=== PATIENT | female | born 1955 | race Caucasian/White ===

== ENCOUNTER 2021-05-13 14:05 | Emergency (ER) | payer MEDICARE, OTHER ==
[~2021-05-13] VITALS: Ht 162 cm; Wt 64.0 kg
--- NOTE | 2021-05-13 14:28 | ED General ---
General Chief Complaint: COVID19 Suspect/Confirmed Stated Complaint: COVID POSITIVE - WEAKNESS Source of Information: [facility], [facility] Exam Limitations: Physical Impairments History of Present Illness Date Seen by Provider: May 13, 2021 Time Seen by Provider: 14:10 Initial Comments Patient is a 65yo female brought from [facility] with a concern for new right sided weakness. She was recently admitted to the alf after a stroke from last month. She was "fine" at lunch reportedly and was found a short time later in her wheel chair slumped backward and poorly responsive. Unknown verbal status (she is not verbal now). She is known to be COVID POS since May 06 (unvaccinated). SHe is unable to participate in HPI, ROS or PMH, P SOC hx, etc due to recent (?) stroke. 1529 Called over and spoke with one of the nurses who takes care of her at [facility] - she is able to communicate "needs" to them, but is mostly non- verbal. "Quiet". She declined to eat lunch today but did give herself some fluids. When therapist went in to assess her after lunch they found her in the wheelchair, basically unresponsive, unable to support her head and neck, "staring straight up at the ceiling". BS 136. Nurse states re: her stroke she was brought to a hospital in [place] and then sent to . Will check records. Timing/Duration: 1-3 Hours Allergies and Home Medications Allergies Coded Allergies: Penicillins (Verified Allergy, Unknown, 05/13/21) codeine (Verified Allergy, Unknown, 05/13/21) erythromycin base (Verified Allergy, Unknown, 05/13/21) lidocaine (Verified Allergy, Unknown, 05/13/21) tetanus toxoid, adsorbed (Verified Allergy, Unknown, 05/13/21) Patient Home Medication List Home Medication List Reviewed: Yes Review of Systems Review of Systems Constitutional: see HPI Unable to obtain due to clinical condition Physical Exam Vital Signs Vital Signs - First Documented 05/13/21 05/13/21 14:05 17:07 Temp 36.2 Pulse 82 Resp 20 B/P (MAP) 135/95 (108) Pulse Ox 95 O2 Delivery Room Air Capillary Refill : Height, Weight, BMI Height: '" Weight: lbs. oz. kg; BMI Method: General Appearance: No Apparent Distress, WD/WN, Chronically ill Eyes: Bilateral Eye Normal Inspection HEENT: Other (Very dry oral mucosa; pupils equal and reactive (she will not follow commands, therefore unable to determine EOM)) Neck: Normal Inspection, Supple Respiratory: Lungs Clear, Normal Breath Sounds, No Accessory Muscle Use, No Respiratory Distress Cardiovascular: Regular Rate, Rhythm, Normal Peripheral Pulses, Other (brisk capillary refill) Gastrointestinal: Normal Bowel Sounds, Non Tender, Soft Extremity: Normal Capillary Refill, Normal Inspection; No Swelling (no swelling in lower legs bilaterally; ) Neurologic/Psychiatric: Alert (eyes open - no responses verbally; unable to assess orientation; she withdraws to stimulus both feet. Does not move LUE (flaccid); will weakly squeeze with the right hand - again scar not follow commands to move the right arm), Depressed Affect, Motor Weakness (LUE - flaccid; LLE will not raise off bed.) Skin: Normal Color, Warm/Dry, Other (dry scaly skin head and neck; old bruises to anterior abdominal wall (likely lovenox injection sites); stage 2/3 sacral decubitus ulcer without signs of infection - no erythema, no drainage.) Focused Exam Lactate Level 05/13/21 15:13: Lactic Acid Level 1.51 Lactic Acid Level Laboratory Tests Test 05/13/21 15:13 Lactic Acid Level 1.51 MMOL/L (0.50-2.00) Progress/Results/Core Measures Suspected Sepsis SIRS Temperature: Pulse: Respiratory Rate: Laboratory Tests 05/13/21 14:15: White Blood Count 11.8H Blood Pressure / Mean: 05/13/21 15:13: Lactic Acid Level 1.51 Laboratory Tests 05/13/21 14:15: Creatinine 0.63, INR Comment 1.1, Platelet Count 355, Total Bilirubin 0.5 Results/Orders Lab Results Laboratory Tests Test 05/13/21 14:15 05/13/21 14:50 05/13/21 15:13 Range/Units White Blood Count 11.8 H 4.3-11.0 10^3/uL Red Blood Count 4.34 3.80-5.11 10^6/uL Hemoglobin 12.9 11.5-16.0 g/dL Hematocrit 40 35-52 % Mean Corpuscular Volume 92 80-99 fL Mean Corpuscular Hemoglobin 30 25-34 pg Mean Corpuscular Hemoglobin Concent 32 32-36 g/dL Red Cell Distribution Width 13.7 10.0-14.5 % Platelet Count 355 130-400 10^3/uL Mean Platelet Volume 10.4 9.0-12.2 fL Immature Granulocyte % (Auto) 1 % Neutrophils (%) (Auto) 81 H 42-75 % Lymphocytes (%) (Auto) 11 L 12-44 % Monocytes (%) (Auto) 8 0-12 % Eosinophils (%) (Auto) 0 0-10 % Basophils (%) (Auto) 0 0-10 % Neutrophils # (Auto) 9.5 H 1.8-7.8 10^3/uL Lymphocytes # (Auto) 1.3 1.0-4.0 10^3/uL Monocytes # (Auto) 0.9 0.0-1.0 10^3/uL Eosinophils # (Auto) 0.0 0.0-0.3 10^3/uL Basophils # (Auto) 0.0 0.0-0.1 10^3/uL Immature Granulocyte # (Auto) 0.1 0.0-0.1 10^3/uL Prothrombin Time 15.0 H 12.2-14.7 SEC INR Comment 1.1 0.8-1.4 Activated Partial Thromboplast Time 33 24-35 SEC Sodium Level 143 135-145 MMOL/L Potassium Level 3.3 L 3.6-5.0 MMOL/L Chloride Level 106 98-107 MMOL/L Carbon Dioxide Level 26 21-32 MMOL/L Anion Gap 11 5-14 MMOL/L Blood Urea Nitrogen 25 H 7-18 MG/DL Creatinine 0.63 0.60-1.30 MG/DL Estimat Glomerular Filtration Rate 98 BUN/Creatinine Ratio 40 Glucose Level 114 H 70-105 MG/DL Calcium Level 9.2 8.5-10.1 MG/DL Corrected Calcium 9.6 8.5-10.1 MG/DL Total Bilirubin 0.5 0.1-1.0 MG/DL Aspartate Amino Transf (AST/SGOT) 29 5-34 U/L Alanine Aminotransferase (ALT/SGPT) 32 0-55 U/L Alkaline Phosphatase 153 H 40-136 U/L C-Reactive Protein High Sensitivity 17.49 H 0.00-0.50 MG/DL Total Protein 7.3 6.4-8.2 GM/DL Albumin 3.5 3.2-4.5 GM/DL Procalcitonin 0.09 <0.10 NG/ML Urine Color YELLOW Urine Clarity SL CLOUDY Urine pH 6.0 5-9 Urine Specific [place] 1.020 1.016-1.022 Urine Protein TRACE H NEGATIVE Urine Glucose (UA) 3+ H NEGATIVE Urine Ketones NEGATIVE NEGATIVE Urine Nitrite NEGATIVE NEGATIVE Urine Bilirubin NEGATIVE NEGATIVE Urine Urobilinogen 0.2 < = 1.0 MG/DL Urine Leukocyte Esterase NEGATIVE NEGATIVE Urine RBC (Auto) NEGATIVE NEGATIVE Urine RBC NONE /HPF Urine WBC NONE /HPF Urine Squamous Epithelial Cells NONE /HPF Urine Crystals NONE /LPF Urine Bacteria NEGATIVE /HPF Urine Casts NONE /LPF Urine Mucus NEGATIVE /LPF Urine Culture Indicated NO Lactic Acid Level 1.51 0.50-2.00 MMOL/L My Orders Orders - OUMOU BOBO MD Cbc With Automated Diff (05/13/21 14:20) Comprehensive Metabolic Panel (05/13/21 14:20) Blood Culture (05/13/21 14:20) Sputum Culture (05/13/21 14:20) Urinalysis (05/13/21 14:20) Urine Culture (05/13/21 14:20) Protime With Inr (05/13/21 14:20) Partial Thromboplastin Time (05/13/21 14:20) Chest 1 View, Ap/Pa Only (05/13/21 14:20) Ed Iv/Invasive Line Start (05/13/21 14:20) Ed Iv/Invasive Line Start (05/13/21 14:20) Vital Signs Adult Sepsis Patie Q15M (05/13/21 14:20) O2 (05/13/21 14:20) Remove Rings In Anticipation O (05/13/21 14:20) Lactic Acid Analyzer (05/13/21 14:20) Hs C Reactive Protein (05/13/21 14:20) Procalcitonin (Pct) (05/13/21 14:20) Ct Head Wo (05/13/21 14:21) Vital Signs/I&O 05/13/21 05/13/21 14:05 17:07 Temp 36.2 Pulse 82 82 Resp 20 18 B/P (MAP) 135/95 (108) 132/70 Pulse Ox 95 97 O2 Delivery Room Air Capillary Refill : Progress Note #1: Time: 16:17 Progress Note reassessed after fluids - she is nodding "yes" and "no" appropriately. Denies pain. [place] Would like to try something to drink - will get some thickener. VSS. her oxygen is 97%. no increased work of breathing (CXR does show some patchy bibasilar interstitial infiltrate consistent with Covid 19 pneumonia). She will squeeze a little with right hand. Just appears very tired and slow. I was able to look at her records from . 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 She is on plavix and aspirin and high dose statin. Labs look good. Nothing to suggest sepsis. Lactic <2. CRP elevated consistent with Covid. No UTI. No concerning findings on CT head. BP's have been in [facility] target range (<160 systolic). I think that she is safe to go back to the [facility]. Progress Note #2: Time: 16:48 Progress Note advised by patient's nurse SUZE Escoto that Eddie drank about 3/4 cup of thickened water. Tolerated well. Diagnostic Imaging Diagonstic Imaging: Xray Plain Films/CT/US/NM/MRI: chest Comments [facility] [place] NAME: EDDIE GRANT [facility] REC#: [id number] PT STATUS: REG ER : 1955 PHYSICIAN: OUMOU BOBO MD ADMIT DATE: 05/13/21/ER Draft Date of Exam:05/13/21 CHEST 1 VIEW, AP/PA ONLY EXAMINATION: Chest 1 view. HISTORY: Generalized weakness COVID Pos. COMPARISON: None available. FINDINGS: Heart size and pulmonary vasculature are normal. Patchy interstitial opacities within the lower lungs. No pleural effusion or pneumothorax. The osseous structures are intact. IMPRESSION: Patchy interstitial opacities in the lower lungs compatible with history of Covid 19 and pneumonia. Dictated on workstation # [id number] Dict: 05/13/21 1458 Trans: 05/13/21 1503 [facility] [id number] Interpreted by: SHARON HERNANDES DO Electronically signed by: Diagonstic Imaging: CT Comments [facility] [place] [place] NAME: EDDIE GRANT [facility] REC#: [id number] PT STATUS: REG ER : 1955 PHYSICIAN: OUMOU BOBO MD ADMIT DATE: 05/13/21/ER Draft Date of Exam:05/13/21 CT HEAD WO INDICATION: Recent stroke; new right side weakness. TECHNIQUE: Routine non contrast-enhanced axial images were obtained from the skull base to the vertex. Auto Exposure Controls were utilized during the CT exam to meet ALARA standards for radiation dose reduction COMPARISON: None. FINDINGS: The ventricles and cortical sulci are diffusely prominent, compatible with age-related volume loss. Old small lacunar infarcts in the right basal ganglia are noted. There are confluent areas of abnormal, low attenuation in the periventricular white matter. This is consistent with small vessel ischemic changes; age-indeterminate. There is no prior study available for comparison. There is no midline shift or mass-effect. No acute intra-axial hemorrhage is seen. There are no abnormal areas of increased or decreased density to suggest acute hemorrhage or edema. No extra-axial masses or collections are present. The bony calvarium is intact. The visualized paranasal sinuses are unremarkable. The mastoid air cells are clear. IMPRESSION: 1. No acute intracranial abnormality. No CT evidence of mass, acute infarct or intracranial hemorrhage. 2. Small vessel ischemic changes in the periventricular and subcortical white matter; likely chronic. 3. Old small lacunar infarcts in the right basal ganglia. 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 Decision time for Depature: 16:22 Referrals: LUZMA HKAN MD Patient Instructions: COVID-19 ED Add. Discharge Instructions: Encourage fluids so that she stays well-hydrated. Monitor oxygen saturations due to Covid Pneumonia, if they are less than 90% or any other emergent, concerning findings, please return to the ER for re- evaluation. Continue home medications. OUMOU BOBO MD May 13, 2021 14:28
[2021-05-13 14:33] LABS: BASOPHILS % (AUTO) 0 % (0-10); EOSINOPHILS % (AUTO) 0 % (0-10); HEMATOCRIT 40 % (35-52); HEMOGLOBIN 12.9 g/dL (11.5-16.0); LYMPHOCYTES # (AUTO) 1.3 10^3/uL (1.0-4.0); LYMPHOCYTES % (AUTO) 11 % (12-44); MEAN CORPUSCULAR HEMOGLOBIN 30 pg (25-34); MEAN CORPUSCULAR HGB CONC 32 g/dL (32-36); MEAN CORPUSCULAR VOLUME 92 fL (80-99); MEAN PLATELET VOLUME 10.4 fL (9.0-12.2); MONOCYTES # (AUTO) 0.9 10^3/uL (0.0-1.0); MONOCYTES % (AUTO) 8 % (0-12); NEUTROPHILS # (AUTO) 9.5 10^3/uL (1.8-7.8); NEUTROPHILS % (AUTO) 81 % (42-75); PLATELET COUNT 355 10^3/uL (130-400); WHITE BLOOD COUNT 11.8 10^3/uL (4.3-11.0)
[2021-05-13 14:41] LABS: ALBUMIN 3.5 GM/DL (3.2-4.5)
[2021-05-13 14:42] LABS: POTASSIUM 3.3 MMOL/L (3.6-5.0)
[2021-05-13 14:43] LABS: CALCIUM 9.2 MG/DL (8.5-10.1)
[2021-05-13 14:44] LABS: TOTAL PROTEIN 7.3 GM/DL (6.4-8.2)
[2021-05-13 14:46] LABS: BILIRUBIN,TOTAL 0.5 MG/DL (0.1-1.0)
[2021-05-13 14:47] LABS: INR 1.1 (0.8-1.4)
[2021-05-13 14:48] LABS: CREATININE SERUM 0.63 MG/DL (0.60-1.30)
[2021-05-13 15:01] LABS: BILIRUBIN,URINE NEGATIVE (NEGATIVE); CLARITY,URINE SL CLOUDY; COLOR,URINE YELLOW; GLUCOSE, URINE (UA) 3+ (NEGATIVE); KETONES,URINE NEGATIVE (NEGATIVE); LEUKOCYTE ESTERASE ,URINE NEGATIVE (NEGATIVE); NITRITE,URINE NEGATIVE (NEGATIVE); PROTEIN,URINE TRACE (NEGATIVE)
--- NOTE | 2021-05-13 15:03 | Diagnostic Imaging Report ---
EXAMINATION: Chest 1 view. HISTORY: Generalized weakness COVID Pos. COMPARISON: None available. FINDINGS: Heart size and pulmonary vasculature are normal. Patchy interstitial opacities within the lower lungs. No pleural effusion or pneumothorax. The osseous structures are intact. IMPRESSION: Patchy interstitial opacities in the lower lungs compatible with history of Covid 19 and pneumonia. Dictated by: Dictated on workstation # [id number]
[2021-05-13 15:09] LABS: BACTERIA,URINE NEGATIVE /HPF
--- NOTE | 2021-05-13 15:12 | Diagnostic Imaging Report ---
INDICATION: Recent stroke; new right side weakness. TECHNIQUE: Routine non contrast-enhanced axial images were obtained from the skull base to the vertex. Auto Exposure Controls were utilized during the CT exam to meet ALARA standards for radiation dose reduction COMPARISON: None. FINDINGS: The ventricles and cortical sulci are diffusely prominent, compatible with age-related volume loss. Old small lacunar infarcts in the right basal ganglia are noted. There are confluent areas of abnormal, low attenuation in the periventricular white matter. This is consistent with small vessel ischemic changes; age-indeterminate. There is no prior study available for comparison. There is no midline shift or mass-effect. No acute intra-axial hemorrhage is seen. There are no abnormal areas of increased or decreased density to suggest acute hemorrhage or edema. No extra-axial masses or collections are present. The bony calvarium is intact. The visualized paranasal sinuses are unremarkable. The mastoid air cells are clear. IMPRESSION: 1. No acute intracranial abnormality. No CT evidence of mass, acute infarct or intracranial hemorrhage. 2. Small vessel ischemic changes in the periventricular and subcortical white matter; likely chronic. 3. Old small lacunar infarcts in the right basal ganglia. Dictated by: Dictated on workstation # [id number]
[2021-05-13 17:07] VITALS: BP 132/70
== END 2021-05-13 17:36 | disposition home or self-care (01) ==
LOC: ER 14:14
DX: U07.1 COVID-19 (principal); J12.82 Pneumonia due to coronavirus disease 2019; R40.4 Transient alteration of awareness; Z86.73 Personal history of transient ischemic attack (TIA), and cerebral infarction without residual deficits
CPT/HCPCS: 36415; 51702; 70450; 71045; 80053; 81000; 83605; 84145; 85025; 85610; 85730; 86141; 87040; 87088

== ENCOUNTER 2021-05-18 17:44 | Inpatient (IN) | payer MEDICARE ==
[~2021-05-18] VITALS: Ht 165 cm; Wt 78.4 kg
--- NOTE | 2021-05-18 17:59 | ED GI ---
General Chief Complaint: Abdominal/GI Problems Stated Complaint: GI BLEED Source of Information: [facility] Records Exam Limitations: Physical Impairments History of Present Illness Date Seen by Provider: May 18, 2021 Time Seen by Provider: 18:06 Initial Comments 65-year-old female patient presents to ER from [facility] with reports that tonight the staff was changing her briefs and noticed her stool to be a maroon color with small clots in it. Due to concern for gastrointestinal bleeding they sent her to the emergency room. She is on aspirin and Plavix for recent CVA. 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 She was Covid positive on 05/07/2021. She sustained these strokes on 04/06/2021 and was transferred to the [facility] from somewhere else. Timing/Duration: 1-3 Hours Severity/Quality: Moderate Radiation: No Radiation Activities at Onset: None Associated Symptoms: Denies Symptoms Allergies and Home Medications Allergies Coded Allergies: Penicillins (Verified Allergy, Unknown, 05/13/21) codeine (Verified Allergy, Unknown, 05/13/21) erythromycin base (Verified Allergy, Unknown, 05/13/21) lidocaine (Verified Allergy, Unknown, 05/13/21) tetanus toxoid, adsorbed (Verified Allergy, Unknown, 05/13/21) Patient Home Medication List Home Medication List Reviewed: Yes Review of Systems Review of Systems Constitutional: see HPI EENTM: No Symptoms Reported Respiratory: No Symptoms Reported Cardiovascular: No Symptoms Reported Gastrointestinal: See HPI, Rectal Bleeding Genitourinary: No Symptoms Reported Musculoskeletal: no symptoms reported Skin: no symptoms reported Psychiatric/Neurological: No Symptoms Reported Endocrine: No Symptoms Reported Hematologic/Lymphatic: No Symptoms Reported Past Funvqmu-Libxph-Vumqex Hx Past Medical History Surgery/Hospitalization HX: RECENT STROKE L SIDE FLACCID Physical Exam Vital Signs Vital Signs - First Documented 05/18/21 17:44 Temp 36.4 Pulse 83 Resp 18 B/P (MAP) 160/92 (114) Capillary Refill : Height/Weight/BMI Height: '" Weight: lbs. oz. kg; 24.00 BMI Method: General Appearance: WD/WN, no apparent distress, other (Nonverbal but makes eye contact during conversation and is able to answer yes or no type questions by shaking her head yes or no.) HEENT: PERRL/EOMI, normal ENT inspection Neck: non-tender, full range of motion Respiratory: no respiratory distress, no accessory muscle use Cardiovascular: regular rate, rhythm, no murmur Gastrointestinal: normal bowel sounds, non tender, soft; No tenderness (When I press on her abdomen and ask if it hurts she shakes her head no. Bowel sounds are present.); other (The stool within her brief is maroon in color mostly liquid with some small grape jelly consistency clot which is not surprisingly positive will order the bedside occult blood test.) Rectal: No hemorrhoids; other (Upon digital rectal exam with Mirtha PCT at the bedside at finger length there is an unusual crepitus-like sensation to the patient's left side of the rectum which is exquisitely tender and bloody. There is definitely proctitis on CT and I would question the integrity of the rectal wall.) Extremities: other (She has left-sided hemiparesis of left arm and left leg) Back: other (Logrolled with Bailee ARCINIEGA to clean up her bowel movement. She is noted to have 2 separate pressure ulcers over the sacrum. The smaller 1 is about a stage III and the larger one is about a stage II. ) Neurologic/Psychiatric: alert, other (As mentioned she shakes her head yes or no to answer questions but does not give any verbal response.) Skin: normal color, warm/dry Progress/Results/Core Measures Results/Orders Lab Results Laboratory Tests Test 05/18/21 17:49 05/18/21 19:50 Range/Units White Blood Count 8.9 4.3-11.0 10^3/uL Red Blood Count 4.12 3.80-5.11 10^6/uL Hemoglobin 12.1 11.5-16.0 g/dL Hematocrit 38 35-52 % Mean Corpuscular Volume 91 80-99 fL Mean Corpuscular Hemoglobin 29 25-34 pg Mean Corpuscular Hemoglobin Concent 32 32-36 g/dL Red Cell Distribution Width 13.8 10.0-14.5 % Platelet Count 457 H 130-400 10^3/uL Mean Platelet Volume 10.0 9.0-12.2 fL Immature Granulocyte % (Auto) 1 % Neutrophils (%) (Auto) 73 42-75 % Lymphocytes (%) (Auto) 17 12-44 % Monocytes (%) (Auto) 9 0-12 % Eosinophils (%) (Auto) 1 0-10 % Basophils (%) (Auto) 0 0-10 % Neutrophils # (Auto) 6.4 1.8-7.8 10^3/uL Lymphocytes # (Auto) 1.5 1.0-4.0 10^3/uL Monocytes # (Auto) 0.8 0.0-1.0 10^3/uL Eosinophils # (Auto) 0.1 0.0-0.3 10^3/uL Basophils # (Auto) 0.0 0.0-0.1 10^3/uL Immature Granulocyte # (Auto) 0.1 0.0-0.1 10^3/uL Prothrombin Time 15.1 H 12.2-14.7 SEC INR Comment 1.2 0.8-1.4 Activated Partial Thromboplast Time 30 24-35 SEC Sodium Level 146 H 135-145 MMOL/L Potassium Level 3.2 L 3.6-5.0 MMOL/L Chloride Level 112 H 98-107 MMOL/L Carbon Dioxide Level 24 21-32 MMOL/L Anion Gap 10 5-14 MMOL/L Blood Urea Nitrogen 24 H 7-18 MG/DL Creatinine 0.61 0.60-1.30 MG/DL Estimat Glomerular Filtration Rate 99 BUN/Creatinine Ratio 39 Glucose Level 112 H 70-105 MG/DL Calcium Level 8.9 8.5-10.1 MG/DL Corrected Calcium 9.5 8.5-10.1 MG/DL Total Bilirubin 0.5 0.1-1.0 MG/DL Aspartate Amino Transf (AST/SGOT) 23 5-34 U/L Alanine Aminotransferase (ALT/SGPT) 26 0-55 U/L Alkaline Phosphatase 153 H 40-136 U/L Total Protein 6.9 6.4-8.2 GM/DL Albumin 3.2 3.2-4.5 GM/DL Urine Color YELLOW Urine Clarity CLOUDY Urine pH 5.5 5-9 Urine Specific [place] >=1.030 1.016-1.022 Urine Protein 2+ H NEGATIVE Urine Glucose (UA) 3+ H NEGATIVE Urine Ketones NEGATIVE NEGATIVE Urine Nitrite NEGATIVE NEGATIVE Urine Bilirubin NEGATIVE NEGATIVE Urine Urobilinogen 0.2 < = 1.0 MG/DL Urine Leukocyte Esterase 1+ H NEGATIVE Urine RBC (Auto) 3+ H NEGATIVE Urine RBC >100 H /HPF Urine WBC 50-100 H /HPF Urine Crystals PRESENT H /LPF Urine Amorphous Sediment FEW MARISA URATES H /LPF Urine Bacteria MODERATE H /HPF Urine Casts NONE /LPF Urine Mucus NEGATIVE /LPF Urine Culture Indicated YES My Orders Orders - ASHUTOSH GAUTAM [employer]MENT [employer]PLICATION SPECIALIST Cbc With Automated Diff (05/18/21 17:58) Comprehensive Metabolic Panel (05/18/21 17:58) Protime With Inr (05/18/21 17:58) Partial Thromboplastin Time (05/18/21 17:58) Ed Iv/Invasive Line Start (05/18/21 17:58) Type And Screen (05/18/21 17:58) Lactated Ringers (Lr 1000 Ml Iv Solution (05/18/21 18:45) Ct Abdomen/Pelvis W (05/18/21 18:42) Iohexol Injection (Omnipaque 350 Mg/Ml 1 (05/18/21 19:00) Received Contrast (Hold Metformin- Contr (05/18/21 19:00) Ns (Ivpb) (Sodium Chloride 0.9% Ivpb Bag (05/18/21 19:00) Na Phos/Na Biphos Enema (Fleet Enema Robert (05/18/21 19:45) Ua Culture If Indicated (05/18/21 19:41) Straight Cath (Urinary) (05/18/21 19:41) Clear Liquid (05/18/21 Dinner) Bisacodyl Tablet (Dulcolax Tablet) (05/19/21 12:00) Bisacodyl Tablet (Dulcolax Tablet) (05/19/21 15:00) Polyethylene Glycol Powder Btl (Miralax (05/19/21 18:00) Red Cells Leukocytes Reduced (05/18/21 20:10) Urine Culture (05/18/21 19:50) Ed Admission (Communication) (05/18/21 20:34) Medications Given in ED Current Medications Medications Dose Ordered Sig/[place]ano Route Start Time Stop Time Status Last Admin Dose Admin Iohexol 100 ml ONCE ONCE IV 05/18/21 19:00 05/18/21 19:01 DC 05/18/21 19:26 80 ML Sodium Chloride 100 ml ONCE ONCE IV 05/18/21 19:00 05/18/21 19:01 DC 05/18/21 19:26 80 ML Vital Signs/I&O 05/18/21 17:44 Temp 36.4 Pulse 83 Resp 18 B/P (MAP) 160/92 (114) Departure Communication (Admissions) Spoken to Dr. Patel and will admit the patient. I spoke with Dr. Chambers who evaluated the patient here in the emergency room. We will start a bowel prep for colonoscopy, Cipro Flagyl for empiric UTI coverage and in case there is a perforation of the rectal wall. NAME: [facility] REC#: [id number] PT STATUS: REG ER : 1955 PHYSICIAN: ASHUTOSH GAUTAM APRN ADMIT DATE: 05/18/21/ER Draft Date of Exam:05/18/21 CT ABDOMEN/PELVIS W PROCEDURE: CT abdomen and pelvis with contrast. TECHNIQUE: Multiple contiguous axial images were obtained through the abdomen and pelvis after administration of intravenous contrast. Auto Exposure Controls were utilized during the CT exam to meet ALARA standards for radiation dose reduction. All CT scans use one or more of the following dose optimizing techniques: automated exposure control, MA and/or KvP adjustment based on patient size and exam type or iterative reconstruction. INDICATION: History of gastrointestinal bleed, melena. Previous stroke. Nonverbal. Partially paralyzed. EXAMINATION: CT abdomen and pelvis with contrast 05/18/2021. FINDINGS: There is atelectasis in the visualized lung bases. Within the abdomen, the gallbladder is markedly distended. There are dependent hyperdensities, likely stones. The liver and spleen unremarkable. There is wall thickening of the distal esophagus perhaps due to esophagitis versus a small hiatal hernia. The pancreas is unremarkable. The adrenal glands normal. Kidneys unremarkable. There is atherosclerotic disease. Motion artifact is noted along the images through the right lower quadrant making evaluation of the appendix nondiagnostic. No obvious inflammatory change in the right lower quadrant is appreciated. Within the pelvis there is marked wall thickening of the urinary bladder with adjacent fat stranding suggesting cystitis. Air in the urinary bladder could be iatrogenic versus cystitis. There is presacral fat stranding and fluid. The distal colon is distended with a hyperdensity in the colon perhaps due to a rectal tube. Correlate clinically. Some of the hyperdensity may be residual contrast from a recent contrast evaluation. Correlate with recent history. Hemorrhagic component is also in the differential, given history of GI bleed. There is no evidence for free air. There is no obstructive process. There is a small umbilical hernia which contains fat. There is no acute osseous abnormality. IMPRESSION: 1. Marked wall thickening about the urinary bladder with adjacent fat stranding and air in the urinary bladder. Findings are suggestive of cystitis. Correlate clinically. 2. Fat stranding about the rectosigmoid with free fluid and presacral fat stranding also seen in the posterior pelvis. These findings could be due to a focal colitis. Hyperdensities within the rectosigmoid are noted, see above discussion. 3. Other incidental findings, as discussed above. This includes a distended gallbladder which appears to contain stones. If there is right upper quadrant pain, sonography could better characterize, as clinically warranted. Dictated on workstation # [id number] Dict: 05/18/211929 Trans: 05/18/211942 [facility] [id number] Interpreted by: BILLY SEGUNDO MD Electronically signed by: Impression Primary Impression: GI bleeding Additional Impression: Urinary tract infection Disposition: ADMITTED INPATIENT Condition: Stable Admissions Decision to Admit Reason: Admit from ER (General) Decision to Admit/Date: May 18, 2021 Time/Decision to Admit Time: 18:14 Departure-Patient Inst. Referrals: LUZMA KHAN MD (PCP/Family) Primary Care Physician ASHUTOSH GAUTAM APRN May 18, 2021 17:59
[2021-05-18 18:07] LABS: BASOPHILS % (AUTO) 0 % (0-10); EOSINOPHILS # (AUTO) 0.1 10^3/uL (0.0-0.3); EOSINOPHILS % (AUTO) 1 % (0-10); HEMATOCRIT 38 % (35-52); HEMOGLOBIN 12.1 g/dL (11.5-16.0); LYMPHOCYTES # (AUTO) 1.5 10^3/uL (1.0-4.0); LYMPHOCYTES % (AUTO) 17 % (12-44); MEAN CORPUSCULAR HEMOGLOBIN 29 pg (25-34); MEAN CORPUSCULAR HGB CONC 32 g/dL (32-36); MEAN CORPUSCULAR VOLUME 91 fL (80-99); MONOCYTES # (AUTO) 0.8 10^3/uL (0.0-1.0); MONOCYTES % (AUTO) 9 % (0-12); NEUTROPHILS # (AUTO) 6.4 10^3/uL (1.8-7.8); NEUTROPHILS % (AUTO) 73 % (42-75); PLATELET COUNT 457 10^3/uL (130-400); WHITE BLOOD COUNT 8.9 10^3/uL (4.3-11.0)
[2021-05-18 18:19] LABS: ALBUMIN 3.2 GM/DL (3.2-4.5); POTASSIUM 3.2 MMOL/L (3.6-5.0)
[2021-05-18 18:20] LABS: CALCIUM 8.9 MG/DL (8.5-10.1)
[2021-05-18 18:21] LABS: TOTAL PROTEIN 6.9 GM/DL (6.4-8.2)
[2021-05-18 18:22] LABS: INR 1.2 (0.8-1.4); PROTHROMBIN TIME PATIENT 15.1 SEC (12.2-14.7)
[2021-05-18 18:23] LABS: BILIRUBIN,TOTAL 0.5 MG/DL (0.1-1.0)
[2021-05-18 18:25] LABS: CREATININE SERUM 0.61 MG/DL (0.60-1.30)
[2021-05-18] MEDS ORDERED: LACTATED RINGERS 1,000 ML IV SCH (18:45)
[2021-05-18] MEDS ORDERED: HOLD METFORMIN - RECEIVED CONTRAST 20 ML VIAL IV SCH (19:00)
[2021-05-18] MEDS ORDERED: IOHEXOL 350 MG/ML 100 ML (OMNIPAQUE 350) VIAL IV ONE (19:00)
[2021-05-18] MEDS ORDERED: NS 100 ML (IVPB) BAG IV ONE (19:00)
--- NOTE | 2021-05-18 19:42 | Consultation - Surgery ---
History of Present Illness History of Present Illness Patient Consulted On(francisco/time) 05/18/21 19:37 Time Seen by Provider: 19:21 History of Present Illness Surgery asked to consult regarding GI bleed. HPI per ED: 65-year-old female patient presents to ER from [facility] with reports that tonight the staff was changing her briefs and noticed her stool to be a maroon color with small clots in it. Due to concern for gastrointestinal bleeding they sent her to the emergency room. She is on aspirin and Plavix for recent CVA. Past medical history includes IDDM, HTN, HLD, atherosclerosis, carotid stenosis, right pontine CVA resulting in left- sided hemiparesis and expressive aphasia. She was Covid positive on 05/07/2021. She sustained these strokes on 04/06/2021 and [facility]. Timing/Duration: 1-3 Hours Severity/Quality: Moderate Radiation: No Radiation Activities at Onset: None Associated Symptoms: Denies Symptoms Pt appears comfortable and can nod for yes and no questions, appears to be appropriately answering. Denied pain, nodded yes to colonoscopy and f/u question more than 5 yrs ago. ER saw maroon stool as well. Allergies and Home Medications Allergies Coded Allergies: Penicillins (Verified Allergy, Unknown, 05/13/21) codeine (Verified Allergy, Unknown, 05/13/21) erythromycin base (Verified Allergy, Unknown, 05/13/21) lidocaine (Verified Allergy, Unknown, 05/13/21) tetanus toxoid, adsorbed (Verified Allergy, Unknown, 05/13/21) Patient Home Medication List Home Medication List Reviewed: No (don't have a home list) Past Iznheng-Vkozjx-Gpiuug Hx Patient Social History Alcohol Use?: No Have you traveled recently?: No Family Medical History Significant Family History: No Pertinent Family Hx Other Unable to determine, pt barely nods her head as answers. Unsure if these are truthful. Review of Systems-General ROS-Unable to Obtain: pt can only answer yes or no questions Physical Exam-General Problems Physical Exam Vital Signs Vital Signs - First Documented 05/18/21 17:44 Temp 36.4 Pulse 83 Resp 18 B/P (MAP) 160/92 (114) Capillary Refill : Less Than 3 Seconds General Appearance: WD/WN, no apparent distress Eyes: Bilateral Eye PERRL, Bilateral Eye EOMI HEENT: pharynx normal; No scleral icterus (R), No scleral icterus (L) Respiratory: lungs clear, normal breath sounds, no respiratory distress, no accessory muscle use Cardiovascular: regular rate, rhythm, no murmur Gastrointestinal: non tender, soft, no organomegaly, hernia (small umbilical) Extremities: no pedal edema, no calf tenderness Neurologic/Psychiatric: alert, motor weakness Skin: normal color, warm/dry Lymphatic: no adenopathy (neck, axilla or groin) Data Review Labs Laboratory Tests 05/18/21 17:49: White Blood Count 8.9, Red Blood Count 4.12, Hemoglobin 12.1, Hematocrit 38, Mean Corpuscular Volume 91, Mean Corpuscular Hemoglobin 29, Mean Corpuscular Hemoglobin Concent 32, Red Cell Distribution Width 13.8, Platelet Count 457H, Mean Platelet Volume 10.0, Immature Granulocyte % (Auto) 1, Neutrophils (%) (Auto) 73, Lymphocytes (%) (Auto) 17, Monocytes (%) (Auto) 9, Eosinophils (%) (Auto) 1, Basophils (%) (Auto) 0, Neutrophils # (Auto) 6.4, Lymphocytes # (Auto) 1.5, Monocytes # (Auto) 0.8, Eosinophils # (Auto) 0.1, Basophils # (Auto) 0.0, Immature Granulocyte # (Auto) 0.1, Prothrombin Time 15.1H, INR Comment 1.2, Activated Partial Thromboplast Time 30, Sodium Level 146H, Potassium Level 3.2L, Chloride Level 112H, Carbon Dioxide Level 24, Anion Gap 10, Blood Urea Nitrogen 24H, Creatinine 0.61, Estimat Glomerular Filtration Rate 99, BUN/Creatinine Ratio 39, Glucose Level 112H, Calcium Level 8.9, Corrected Calcium 9.5, Total Bilirubin 0.5, Aspartate Amino Transf (AST/SGOT) 23, Alanine Aminotransferase (ALT/SGPT) 26, Alkaline Phosphatase 153H, Total Protein 6.9, Albumin 3.2 Assessment/Plan Assessment/Plan Assessment/Plan Rectal Bleed Biliary Dyskinesia I was asked by Pedro Luis Molina to see this pt and we discussed her care; she had rectal bleed but Hemoglobin is 12. I looked at the CT myself, did not see anything obvious in the colon; it is very redundant and full of fecal material. As well the gallbladder is very distended, but this probably does not have any significance. Also her Terminal Ileum appears to be retro-cecal. I don't think she needs to be admitted, does not seem to be having pain and nothing seen on CT. I would recommend going back to skilled nursing, stopping anti-coagulation, starting Miralax colon prep on Tuesday and plan for Colonoscopy on Tuesday afternoon. Will have my office try to coordinate and find out about consent. CARLOS LEMUS DO May 18, 2021 19:42
[2021-05-18] MEDS ORDERED: FLEET ENEMA ADULT 1 EA BTL PR ONE (19:45)
--- NOTE | 2021-05-18 19:45 | Diagnostic Imaging Report ---
PROCEDURE: CT abdomen and pelvis with contrast. TECHNIQUE: Multiple contiguous axial images were obtained through the abdomen and pelvis after administration of intravenous contrast. Auto Exposure Controls were utilized during the CT exam to meet ALARA standards for radiation dose reduction. All CT scans use one or more of the following dose optimizing techniques: automated exposure control, MA and/or KvP adjustment based on patient size and exam type or iterative reconstruction. INDICATION: History of gastrointestinal bleed, melena. Previous stroke. Nonverbal. Partially paralyzed. EXAMINATION: CT abdomen and pelvis with contrast 05/18/2021. FINDINGS: There is atelectasis in the visualized lung bases. Within the abdomen, the gallbladder is markedly distended. There are dependent hyperdensities, likely stones. The liver and spleen unremarkable. There is wall thickening of the distal esophagus perhaps due to esophagitis versus a small hiatal hernia. The pancreas is unremarkable. The adrenal glands normal. Kidneys unremarkable. There is atherosclerotic disease. Motion artifact is noted along the images through the right lower quadrant making evaluation of the appendix nondiagnostic. No obvious inflammatory change in the right lower quadrant is appreciated. Within the pelvis there is marked wall thickening of the urinary bladder with adjacent fat stranding suggesting cystitis. Air in the urinary bladder could be iatrogenic versus cystitis. There is presacral fat stranding and fluid. The distal colon is distended with a hyperdensity in the colon perhaps due to a rectal tube. Correlate clinically. Some of the hyperdensity may be residual contrast from a recent contrast evaluation. Correlate with recent history. Hemorrhagic component is also in the differential, given history of GI bleed. There is no evidence for free air. There is no obstructive process. There is a small umbilical hernia which contains fat. There is no acute osseous abnormality. IMPRESSION: 1. Marked wall thickening about the urinary bladder with adjacent fat stranding and air in the urinary bladder. Findings are suggestive of cystitis. Correlate clinically. 2. Fat stranding about the rectosigmoid with free fluid and presacral fat stranding also seen in the posterior pelvis. These findings could be due to a focal colitis. Hyperdensities within the rectosigmoid are noted, see above discussion. 3. Other incidental findings, as discussed above. This includes a distended gallbladder which appears to contain stones. If there is right upper quadrant pain, sonography could better characterize, as clinically warranted. Dictated by: Dictated on workstation # [id number]
[2021-05-18 19:57] LABS: BILIRUBIN,URINE NEGATIVE (NEGATIVE); CLARITY,URINE CLOUDY; COLOR,URINE YELLOW; GLUCOSE, URINE (UA) 3+ (NEGATIVE); KETONES,URINE NEGATIVE (NEGATIVE); LEUKOCYTE ESTERASE ,URINE 1+ (NEGATIVE); NITRITE,URINE NEGATIVE (NEGATIVE); PH,URINE 5.5 (5-9); PROTEIN,URINE 2+ (NEGATIVE)
[2021-05-18 20:14] LABS: AMORPHOUS SEDIMENT,UR FEW AMOR URATES /LPF; BACTERIA,URINE MODERATE /HPF; RBC,URINE >100 /HPF; WBC,URINE 50-100 /HPF
[2021-05-18] MEDS ORDERED: diphenhydrAMINE 25 MG TAB (BENADRYL) PO PRN (21:00)
[2021-05-18] MEDS ORDERED: CALCIUM CARBONATE 500 MG (TUMS) TAB.CHEW PO PRN (21:00)
[2021-05-18] MEDS ORDERED: LACTULOSE SYRUP 10GM/15ML (ENULOSE) 30ML UDC PO PRN (21:00)
[2021-05-18] MEDS ORDERED: ACETAMINOPHEN 325 MG TABLET PO PRN (21:00)
[2021-05-18] MEDS ORDERED: ANTACID SUSP 30 ML UDC (MYLANTA) PO PRN (21:00)
[2021-05-18] MEDS ORDERED: MILK OF MAGNESIA 400 MG/5 ML 30 ML UDC PO PRN (21:00)
[2021-05-18] MEDS ORDERED: diphenhydrAMINE 50 MG/ML INJ (BENADRYL) IVP PRN (21:00)
[2021-05-18] MEDS ORDERED: morphine INJ 4 MG/ML 1 ML (VIAL/SYRINGE) IV PRN (21:00)
[2021-05-18] MEDS ORDERED: PATIENT MAY USE OWN MEDS, ALL PO SCH (21:00)
[2021-05-18] MEDS ORDERED: BISACODYL 10 MG SUPP (DULCOLAX) PR PRN (21:00)
[2021-05-18] MEDS ORDERED: MELATONIN 3 MG TABLET PO PRN (21:00)
[2021-05-18] MEDS ORDERED: ONDANSETRON 4 MG (ZOFRAN) ORAL DISSOLVE TAB PO PRN (21:00)
[2021-05-18] MEDS: metroNIDAZOLE 500MG/100ML IVPB 250 MG in EMPTY IV BAG (PVC) 1 EA IV SCH (21:00)
[2021-05-18] MEDS ORDERED: ONDANSETRON 4 MG/2 ML (SDV) Z0FRAN IV PRN (21:00)
[2021-05-18] MEDS ORDERED: polyethylene glycoL POWDER 17 GM (MIRALAX) PACK PO PRN (21:00)
[2021-05-18] MEDS: DOCUSATE SODIUM 100 MG (COLACE) CAP PO SCH (21:34)
[2021-05-18] MEDS: SENNOSIDES 8.6 MG (SENOKOT) TAB PO SCH (21:34)
[2021-05-18 21:37] VITALS: BP 160/92
[2021-05-18] MEDS ORDERED: RT-ALBUTEROL SULF 2.5 MG/3 ML PRE-MIX VIAL INH PRN (21:45)
[2021-05-18] MEDS ORDERED: metroNIDAZOLE 500MG/100ML IVPB 0 ML ONE (22:42)
[2021-05-18] MEDS: CIPROFLOXACIN IV 400MG/200ML 200 ML IV SCH (22:46)
[2021-05-19] MEDS ORDERED: NS W/KCL 20 MEQ/L 1,000 ML IV SCH
[2021-05-19] MEDS ORDERED: NS W/KCL 20 MEQ/L 1,000 ML IV ONE (00:44)
[2021-05-19 05:28] LABS: BASOPHILS % (AUTO) 0 % (0-10); EOSINOPHILS # (AUTO) 0.1 10^3/uL (0.0-0.3); EOSINOPHILS % (AUTO) 1 % (0-10); HEMATOCRIT 33 % (35-52); HEMOGLOBIN 10.5 g/dL (11.5-16.0); LYMPHOCYTES # (AUTO) 1.2 10^3/uL (1.0-4.0); LYMPHOCYTES % (AUTO) 14 % (12-44); MEAN CORPUSCULAR HEMOGLOBIN 29 pg (25-34); MEAN CORPUSCULAR HGB CONC 32 g/dL (32-36); MEAN CORPUSCULAR VOLUME 92 fL (80-99); MEAN PLATELET VOLUME 10.2 fL (9.0-12.2); MONOCYTES # (AUTO) 0.8 10^3/uL (0.0-1.0); MONOCYTES % (AUTO) 9 % (0-12); NEUTROPHILS # (AUTO) 6.4 10^3/uL (1.8-7.8); NEUTROPHILS % (AUTO) 75 % (42-75); PLATELET COUNT 369 10^3/uL (130-400); WHITE BLOOD COUNT 8.5 10^3/uL (4.3-11.0)
[2021-05-19 05:52] LABS: ALBUMIN 2.8 GM/DL (3.2-4.5); BILIRUBIN,TOTAL 0.5 MG/DL (0.1-1.0); CALCIUM 8.1 MG/DL (8.5-10.1); CREATININE SERUM 0.53 MG/DL (0.60-1.30); POTASSIUM 3.2 MMOL/L (3.6-5.0)
[2021-05-19] MEDS: SENNOSIDES 8.6 MG (SENOKOT) TAB PO SCH ×2 (07:46→21:01)
[2021-05-19] MEDS: DOCUSATE SODIUM 100 MG (COLACE) CAP PO SCH ×2 (07:46→21:01)
--- NOTE | 2021-05-19 08:32 | Progress Note - Surgery ---
ANATOLY HICKS 05/19/21 0832: Subjective Date Seen by a Provider: May 19, 2021 Time Seen by a Provider: 08:00 Subjective/Events-last exam Pt nodding slightly at certain questions. Preferred to squeeze my hand (once for yes, twice for no). Denied CP, SOB, abdominal pain. Her nurse reported her stool s have had progressively less red blood in them. The last was just "a smear." Review of Systems unable to obtain Focused Exam Respiratory: Lungs Clear, Normal Breath Sounds, No Respiratory Distress Cardiovascular: Regular Rate, Rhythm, No Murmur Peripheral Pulses: 2+ Radial Pulses (R), 2+ Radial Pulses (L) Skin: normal color, warm/dry Objective Exam Vital Signs Date Time Temp Pulse Resp B/P (MAP) Pulse Ox O2 Delivery O2 Flow Rate FiO2 05/19/21 07:55 36.4 76 10 163/79 95 Room Air 05/19/21 07:00 75 05/19/21 04:00 84 20 167/82 97 Room Air 05/19/21 04:00 36.2 05/19/21 04:00 97 Room Air 05/19/21 02:00 64 16 164/71 99 Room Air 05/19/21 01:00 66 16 146/72 96 Room Air 05/19/21 01:00 66 05/19/21 00:00 37.0 05/19/21 00:00 97 Room Air 05/19/21 00:00 74 15 159/83 97 Room Air 05/18/21 23:00 65 15 155/77 97 Room Air 05/18/21 22:30 64 8 159/83 96 Room Air 05/18/21 22:15 64 16 157/79 96 Room Air 05/18/21 22:00 68 16 160/86 96 Room Air 05/18/21 21:45 67 16 158/79 95 Room Air 05/18/21 21:37 36.4 83 95 21 05/18/21 21:30 72 20 152/83 94 Room Air 05/18/21 21:18 74 05/18/21 21:18 74 05/18/21 21:16 36.3 74 26 176/85 95 Room Air 05/18/21 21:15 97 Room Air 05/18/21 20:53 36.4 80 18 150/90 05/18/21 17:44 36.4 83 18 160/92 (114) I & O 05/19/21 07:00 Intake Total 1030 ml Output Total 5 ml Balance 1025 ml Capillary Refill : Less Than 3 Seconds General Appearance: No Apparent Distress, WD/WN Respiratory: Lungs Clear, Normal Breath Sounds, No Respiratory Distress Cardiovascular: Regular Rate, Rhythm, No Murmur Peripheral Pulses: 2+ Radial Pulses (R), 2+ Radial Pulses (L) Gastrointestinal: non tender, soft; No tenderness (She squeezed my hand twice for no when asked if palpation in each quadrant hurt); other (Only a smear of red blood in her stool this morning) Extremity: Normal Inspection, No Pedal Edema Neurologic/Psychiatric: Alert, Motor Weakness Skin: Normal Color, Warm/Dry Results Lab Laboratory Tests 05/18/21 17:49: White Blood Count 8.9, Red Blood Count 4.12, Hemoglobin 12.1, Hematocrit 38, Mean Corpuscular Volume 91, Mean Corpuscular Hemoglobin 29, Mean Corpuscular Hemoglobin Concent 32, Red Cell Distribution Width 13.8, Platelet Count 457H, Mean Platelet Volume 10.0, Immature Granulocyte % (Auto) 1, Neutrophils (%) (Auto) 73, Lymphocytes (%) (Auto) 17, Monocytes (%) (Auto) 9, Eosinophils (%) (Auto) 1, Basophils (%) (Auto) 0, Neutrophils # (Auto) 6.4, Lymphocytes # (Auto) 1.5, Monocytes # (Auto) 0.8, Eosinophils # (Auto) 0.1, Basophils # (Auto) 0.0, Immature Granulocyte # (Auto) 0.1, Prothrombin Time 15.1H, INR Comment 1.2, Activated Partial Thromboplast Time 30, Sodium Level 146H, Potassium Level 3.2L, Chloride Level 112H, Carbon Dioxide Level 24, Anion Gap 10, Blood Urea Nitrogen 24H, Creatinine 0.61, Estimat Glomerular Filtration Rate 99, BUN/Creatinine Ratio 39, Glucose Level 112H, Calcium Level 8.9, Corrected Calcium 9.5, Total Bilirubin 0.5, Aspartate Amino Transf (AST/SGOT) 23, Alanine Aminotransferase (ALT/SGPT) 26, Alkaline Phosphatase 153H, Total Protein 6.9, Albumin 3.2 05/18/21 19:50: Urine Color YELLOW, Urine Clarity CLOUDY, Urine pH 5.5, Urine Specific [place] >=1.030, Urine Protein 2+H, Urine Glucose (UA) 3+H, Urine Ketones NEGATIVE, Urine Nitrite NEGATIVE, Urine Bilirubin NEGATIVE, Urine Urobilinogen 0.2, Urine Leukocyte Esterase 1+H, Urine RBC (Auto) 3+H, Urine RBC >100H, Urine WBC 50-100H , Urine Crystals PRESENTH, Urine Amorphous Sediment FEW MARISA URATESH, Urine Bacteria MODERATEH, Urine Casts NONE, Urine Mucus NEGATIVE, Urine Culture Indicated YES 05/19/21 05:00: White Blood Count 8.5, Red Blood Count 3.58L, Hemoglobin 10.5L, Hematocrit 33L, Mean Corpuscular Volume 92, Mean Corpuscular Hemoglobin 29, Mean Corpuscular Hemoglobin Concent 32, Red Cell Distribution Width 13.5, Platelet Count 369, Mean Platelet Volume 10.2, Immature Granulocyte % (Auto) 1, Neutrophils (%) (Auto) 75, Lymphocytes (%) (Auto) 14, Monocytes (%) (Auto) 9, Eosinophils (%) (Auto) 1, Basophils (%) (Auto) 0, Neutrophils # (Auto) 6.4, Lymphocytes # (Auto) 1.2, Monocytes # (Auto) 0.8, Eosinophils # (Auto) 0.1, Basophils # (Auto) 0.0, Immature Granulocyte # (Auto) 0.1, Sodium Level 148H, Potassium Level 3.2L, Chloride Level 114H, Carbon Dioxide Level 22, Anion Gap 12, Blood Urea Nitrogen 23H, Creatinine 0.53L, Estimat Glomerular Filtration Rate 103, BUN/Creatinine Ratio 43, Glucose Level 118H, Calcium Level 8.1L, Corrected Calcium 9.1, Total Bilirubin 0.5, Aspartate Amino Transf (AST/SGOT) 22, Alanine Aminotransferase (ALT/SGPT) 21, Alkaline Phosphatase 133, Total Protein 6.0L, Albumin 2.8L Microbiology 05/18/21 Urine Culture - Preliminary, Resulted Escherichia coli Assessment/Plan Assessment/Plan Assessment/Plan Rectal Bleed Biliary Dyskinesia Hypernatremia- 148 Hypokalemia- 3.2 Bowel Prep today Colonoscopy Tuesday Researching consent Hold anticoagulation Monitor labs and vitals Clinical Quality Measures DVT/VTE Risk/Contraindication: Contraindications-Pharm: Other *list below* Other: CARLOS Delaney DO 05/19/21 1526: Subjective Time Seen by a Provider: 11:52 Subjective/Events-last exam Pt seen and examined, with nurses in the room. They were actually turning her to assess Decubs. Review of Systems unable to obtain Objective Exam General Appearance: No Apparent Distress, WD/WN Respiratory: Lungs Clear, Normal Breath Sounds, No Accessory Muscle Use, No Respiratory Distress Cardiovascular: Regular Rate, Rhythm, No Murmur Gastrointestinal: non tender (She squeezed my hand twice for no when asked if p alpation in each quadrant hurt), soft, other (Only a smear of red blood in her stool this morning, I did a LUCERO and it feels like on the left side of colon it has eroded through into retroperitoneum or it is an ulcerated mass) Neurologic/Psychiatric: Alert, Motor Weakness Skin: Normal Color, Warm/Dry, Other (sacral decub and bilateral gluteal decub, right is stage I-II, left stage II ) Assessment/Plan Assessment/Plan Assessment/Plan Rectal Bleed Biliary Dyskinesia Hypernatremia- 148 Hypokalemia- 3.2 Bowel Prep today, Colonoscopy Tuesday, Researching consent Hold anticoagulation, Monitor labs and vitals I discussed case with Radiologist and he agrees there may be an erosion of the rectal wall. Pt may need a diverting colostomy, which would also help with her decubitus ulcers and clean up for pt. Supervisory-Addendum Brief Verification & Attestation Participated in pt care: history, MDM, physical Personally performed: exam, history, MDM, supervision of care Care discussed with: Medical Student Procedures: n/a Verification and Attestation of Medical Student E/M Service A medical student performed and documented this service. I then reviewed and verified all information documented by the medical student and made modifications to such information, when appropriate. I personally performed a physical exam, medical decision making and then discussed any differences between the notes and made revisions as necessary to create one note. Carlos Chambers , 05/19/21 , 15:25 ANATOLY HICKS May 19, 2021 08:32 CARLOS CHAMBERS DO May 19, 2021 15:26
[2021-05-19] MEDS: CIPROFLOXACIN IV 400MG/200ML 200 ML IV SCH ×2 (09:33→21:01)
[2021-05-19] MEDS ORDERED: POTASSIUM CHLORIDE INJ 20 MEQ in NS IV 1000 ML 1,000 ML IV SCH (10:00)
--- NOTE | 2021-05-19 10:34 | History & Physical ---
LORETTA TUCKER 05/19/21 1034: History of Present Illness History of Present Illness Reason for visit/HPI Patient is a 65yo female w/PMH of IDDM, HTN, HLD, Right [place] CVA who presented to ER yesterday after staff at [facility] noticed blood in the patients undergarments. 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 Patient able to understand questions and respond via hand signaling. She denies any pain, nausea/vomiting, sweats or chills. Date of Admission May 18, 2021 at 20:35 Date Seen by a Provider: May 19, 2021 Time Seen by a Provider: 08:15 I consulted on this patient on 05/19/21 10:28 Attending Physician Keely Patel DO Admitting Physician Deven Resendiz MD Consult Allergies and Home Medications Allergies Coded Allergies: Penicillins (Verified Allergy, Unknown, 05/13/21) codeine (Verified Allergy, Unknown, 05/13/21) erythromycin base (Verified Allergy, Unknown, 05/13/21) lidocaine (Verified Allergy, Unknown, 05/13/21) tetanus toxoid, adsorbed (Verified Allergy, Unknown, 05/13/21) Patient Home Medication List Acetaminophen (Tylenol Arthritis) 650 Mg Tablet.er, 650 MG PO Q8H PRN for PAIN- MILD (1-4), (Reported) Entered as Reported by: GIOVANNA AGUIAR on 05/19/211140 Last Action: Reviewed Ascorbate Calcium (Vitamin C) 500 Mg Tablet, 500 MG PO DAILY, (Reported) Entered as Reported by: GIOVANNA AGUIAR on 05/19/211140 Last Action: Reviewed Aspirin (Aspirin) 81 Mg Tab.chew, 81 MG PO DAILY, (Reported) Entered as Reported by: GIOVANNA AGUIAR on 05/19/211140 Last Action: Reviewed Atorvastatin Calcium (Atorvastatin Calcium) 80 Mg Tablet, 80 MG PO DAILY, (Reported) Entered as Reported by: GIOVANNA AGUIAR on 05/19/211140 Last Action: Reviewed Cholecalciferol (Vitamin D3) (Vitamin D3) 25 Mcg Capsule, 25 MCG PO DAILY, (Reported) Entered as Reported by: GIOVANNA AGUIAR on 05/19/211140 Last Action: Reviewed Clopidogrel Bisulfate (Plavix) 75 Mg Tablet, 75 MG PO DAILY, (Reported) Entered as Reported by: GIOVANNA AGUIAR on 05/19/211140 Last Action: Reviewed Dapagliflozin Propanediol (Farxiga) 10 Mg Tablet, 10 MG PO DAILY, (Reported) Entered as Reported by: GIOVANNA AGUIAR on 05/19/211140 Last Action: Reviewed Insulin Aspart (Novolog) 100 Unit/1 Ml Susp, 5 UNIT SQ AC, (Reported) Entered as Reported by: GIOVANNA AGUIAR on 05/19/211140 Last Action: Reviewed Insulin Glargine,Hum.rec.anlog (Lantus) 100 Unit/1 Ml Vial, 35 UNIT SQ HS, (Reported) Entered as Reported by: GIOVANNA AGUIAR on 05/19/211140 Last Action: Reviewed Ketoconazole (Ketoconazole) 120 Ml Shampoo, 1 APPLIC TP MO,WE,FR, (Reported) Entered as Reported by: GIOVANNA AGUIAR on 05/19/211140 Last Action: Reviewed Lisinopril (Lisinopril) 10 Mg Tablet, 10 MG PO DAILY, (Reported) Entered as Reported by: GIOVANNA AGUIAR on 05/19/211140 Last Action: Reviewed Past Ckwjydu-Napptn-Htttia Hx Patient Social History Tobacco Use?: No Substance use?: No Alcohol Use?: No Pt feels they are or have been: No Immunizations Up To Date Date of Influenza Vaccine: May 18, 2021 Current Status status: No status: No Communicates: Gestures, Verbally Primary Language: Armenian Preferred Spoken Language: Armenian Sensory deficits: Speech impairment Additional sensory deficits: CVA WITH LEFT SIDED WEAKNESS, PATIENT NODS YES/NO TO QUESTIONS Family Medical History No Pertinent Family Hx Review of Systems Constitutional: No chills, No diaphoresis Cardiovascular: No chest pain Gastrointestinal: No abdominal pain, No nausea, No vomiting; other (hematoche nimesh) Physical Exam Vital Signs Vital Signs - First Documented 05/18/21 05/18/21 05/18/21 17:44 21:15 21:37 Temp 36.4 Pulse 83 Resp 18 B/P (MAP) 160/92 (114) Pulse Ox 97 O2 Delivery Room Air FiO2 21 Capillary Refill : Less Than 3 Seconds Height, Weight, BMI Height: '" Weight: lbs. oz. kg; 24.86 BMI Method: General Appearance: WD/WN HEENT: PERRL/EOMI Neck: Normal Inspection Respiratory: Lungs Clear, No Accessory Muscle Use Cardiovascular: Regular Rate, Rhythm Gastrointestinal: Normal Bowel Sounds, Soft Rectal: Heme Positive Stool Back: Normal Inspection Extremity: Normal Inspection, No Pedal Edema Neurologic/Psychiatric: Aphasia (expressive) Assessment/Plan Assessment and Plan UTI Rectal bleed Anemia Hypernatremia Hypokalemia - Hgb 10.5 today, was 12.1 yesterday - Suspected lower GI bleed, bowel prep today with colonoscopy planned Tuesday to evaluate - Pt receiving IV fluids and Metro/Cipro for UTI - Correcting electrolyte abnormalities Admission Diagnosis Rectal bleed UTI Admission Status: Inpatient Order (span 2 midnights) Reason for Inpatient Admission: IV fluids/abx Scope to evaluate GI bleed Clinical Quality Measures DVT/VTE Risk/Contraindication: Contraindications-Pharm: Other *list below* Other: TOMY Dowling MD 05/19/21 1850: History of Present Illness History of Present Illness Time Seen by a Provider: 09:30 Allergies and Home Medications Allergies Coded Allergies: Penicillins (Verified Allergy, Unknown, 05/13/21) codeine (Verified Allergy, Unknown, 05/13/21) erythromycin base (Verified Allergy, Unknown, 05/13/21) lidocaine (Verified Allergy, Unknown, 05/13/21) tetanus toxoid, adsorbed (Verified Allergy, Unknown, 05/13/21) Patient Home Medication List Home Medication List Reviewed: Yes Acetaminophen (Tylenol Arthritis) 650 Mg Tablet.er, 650 MG PO Q8H PRN for PAIN- MILD (1-4), (Reported) Entered as Reported by: GIOVANNA AGUIAR on 05/19/211140 Last Action: Reviewed Ascorbate Calcium (Vitamin C) 500 Mg Tablet, 500 MG PO DAILY, (Reported) Entered as Reported by: GIOVANNA AGUIAR on 05/19/211140 Last Action: Reviewed Aspirin (Aspirin) 81 Mg Tab.chew, 81 MG PO DAILY, (Reported) Entered as Reported by: GIOVANNA AGUIAR on 05/19/211140 Last Action: Reviewed Atorvastatin Calcium (Atorvastatin Calcium) 80 Mg Tablet, 80 MG PO DAILY, (Reported) Entered as Reported by: GIOVANNA AGUIAR on 05/19/211140 Last Action: Reviewed Cholecalciferol (Vitamin D3) (Vitamin D3) 25 Mcg Capsule, 25 MCG PO DAILY, (Reported) Entered as Reported by: GIOVANNA AGUIAR on 05/19/211140 Last Action: Reviewed Clopidogrel Bisulfate (Plavix) 75 Mg Tablet, 75 MG PO DAILY, (Reported) Entered as Reported by: GIOVANNA AGUIAR on 05/19/211140 Last Action: Reviewed Dapagliflozin Propanediol (Farxiga) 10 Mg Tablet, 10 MG PO DAILY, (Reported) Entered as Reported by: GIOVANNA AGUIAR on 05/19/211140 Last Action: Reviewed Insulin Aspart (Novolog) 100 Unit/1 Ml Susp, 5 UNIT SQ AC, (Reported) Entered as Reported by: GIOVANNA AGUIAR on 05/19/211140 Last Action: Reviewed Insulin Glargine,Hum.rec.anlog (Lantus) 100 Unit/1 Ml Vial, 35 UNIT SQ HS, (Reported) Entered as Reported by: GIOVANNA AGUIAR on 05/19/211140 Last Action: Reviewed Ketoconazole (Ketoconazole) 120 Ml Shampoo, 1 APPLIC TP MO,WE,FR, (Reported) Entered as Reported by: GIOVANNA AGUIAR on 05/19/211140 Last Action: Reviewed Lisinopril (Lisinopril) 10 Mg Tablet, 10 MG PO DAILY, (Reported) Entered as Reported by: GIOVANNA AGUIAR on 05/19/211140 Last Action: Reviewed Past Nazkjfn-Lmfqaw-Rvqocu Hx Past Medical History High Cholesterol, Hypertension Stroke Diabetes, Non-Insulin dep Family Medical History No Pertinent Family Hx Physical Exam General Appearance: No Apparent Distress, WD/WN HEENT: PERRL/EOMI, Pharynx Normal Neck: Normal Inspection, Supple Respiratory: Lungs Clear, Normal Breath Sounds, No Respiratory Distress Cardiovascular: Regular Rate, Rhythm, No Murmur Gastrointestinal: Normal Bowel Sounds, Non Tender, Soft Extremity: Normal Inspection, No Pedal Edema Neurologic/Psychiatric: Alert, Aphasia (expressive), Motor Weakness (left sided) Skin: Normal Color, Warm/Dry Assessment/Plan Assessment and Plan Presented with melena. Surgery following, planning for endoscopy Tuesday. Started on antibiotics for UTI. Also incidentally found to be COVID positive on preop screening. Problems: (1) GI bleeding Status: Acute (2) UTI (urinary tract infection) Status: Acute Qualifiers: Qualified Codes: N30.01 - Acute cystitis with hematuria (3) COVID-19 Status: Acute (4) History of CVA with residual deficit Status: Chronic Admission Diagnosis Admission Status: Inpatient Order (span 2 midnights) Reason for Inpatient Admission: Melena evaluation Supervisory-Addendum Brief Verification & Attestation Participated in pt care: history, MDM, physical Personally performed: exam, history, MDM, supervision of care Care discussed with: Medical Student Procedures: n/a Results interpretation: Verified all documentation A medical student performed and documented this service in my presence. I reviewed and verified all information documented by the medical student and made modifications to such information, when appropriate. I personally performed the physical exam and medical decision making. LORETTA TUCKER May 19, 2021 10:34 TOMY GOODMAN MD May 19, 2021 18:50
[2021-05-19] MEDS: metroNIDAZOLE 500MG/100ML IVPB 250 MG in EMPTY IV BAG (PVC) 1 EA IV SCH ×2 (11:00→21:00)
[2021-05-19] MEDS ORDERED: KETO120S13 TP (11:41)
[2021-05-19] MEDS ORDERED: ASPI-999 PO (11:41)
[2021-05-19] MEDS ORDERED: ACET-2650 PO (11:41)
[2021-05-19] MEDS ORDERED: INSU100V16 SQ (11:41)
[2021-05-19] MEDS ORDERED: INSU100V6 SQ (11:41)
[2021-05-19] MEDS ORDERED: ATOR80TA76 PO (11:41)
[2021-05-19] MEDS ORDERED: CLOP75TA69 PO (11:41)
[2021-05-19] MEDS ORDERED: ASCO-262 PO (11:41)
[2021-05-19] MEDS ORDERED: CHOL10007 PO (11:41)
[2021-05-19] MEDS ORDERED: DAPA10TA PO (11:41)
[2021-05-19] MEDS ORDERED: LISI10TA25 PO (11:41)
[2021-05-19] MEDS: NS W/KCL 20 MEQ/L 1,000 ML IV SCH (11:48)
[2021-05-19] MEDS ORDERED: BISACODYL 5 MG (DULCOLAX) TABLET PO SCH ×4 (12:00→15:00)
[2021-05-19] MEDS ORDERED: polyethylene glycoL Bowel Prep(MIRALAX) 238 GM PO SCH ×2 (18:00)
[2021-05-19] MEDS ORDERED: metroNIDAZOLE 500MG/100ML IVPB 100 ML ONE (20:34)
[2021-05-19] MEDS: PANTOPRAZOLE 40 MG (PROTONIX) VIAL IV SCH (21:00)
[2021-05-20] MEDS: NS W/KCL 20 MEQ/L 1,000 ML IV SCH ×2 (00:58→16:27)
[2021-05-20 05:22] LABS: BASOPHILS % (AUTO) 0 % (0-10); EOSINOPHILS # (AUTO) 0.1 10^3/uL (0.0-0.3); EOSINOPHILS % (AUTO) 2 % (0-10); HEMATOCRIT 31 % (35-52); HEMOGLOBIN 10.1 g/dL (11.5-16.0); LYMPHOCYTES # (AUTO) 1.2 10^3/uL (1.0-4.0); LYMPHOCYTES % (AUTO) 21 % (12-44); MEAN CORPUSCULAR HEMOGLOBIN 30 pg (25-34); MEAN CORPUSCULAR HGB CONC 32 g/dL (32-36); MEAN CORPUSCULAR VOLUME 92 fL (80-99); MEAN PLATELET VOLUME 10.1 fL (9.0-12.2); MONOCYTES # (AUTO) 0.5 10^3/uL (0.0-1.0); MONOCYTES % (AUTO) 8 % (0-12); NEUTROPHILS % (AUTO) 68 % (42-75); PLATELET COUNT 351 10^3/uL (130-400); WHITE BLOOD COUNT 5.9 10^3/uL (4.3-11.0)
[2021-05-20 05:40] LABS: ALBUMIN 2.8 GM/DL (3.2-4.5); POTASSIUM 3.2 MMOL/L (3.6-5.0)
[2021-05-20 05:43] LABS: TOTAL PROTEIN 5.6 GM/DL (6.4-8.2)
[2021-05-20 05:44] LABS: BILIRUBIN,TOTAL 0.5 MG/DL (0.1-1.0)
[2021-05-20 05:46] LABS: CREATININE SERUM 0.52 MG/DL (0.60-1.30)
[2021-05-20] MEDS: PANTOPRAZOLE 40 MG (PROTONIX) VIAL IV SCH ×2 (08:21→20:42)
[2021-05-20] MEDS: DOCUSATE SODIUM 100 MG (COLACE) CAP PO SCH ×2 (08:21→20:42)
[2021-05-20] MEDS: SENNOSIDES 8.6 MG (SENOKOT) TAB PO SCH ×2 (08:21→20:42)
[2021-05-20] MEDS ORDERED: hydrALAZINE (APESOLINE) 20 MG/ML VIAL IV PRN (09:30)
--- NOTE | 2021-05-20 09:38 | Progress Note - Surgery ---
WILLIE NICHOLAS 05/20/21 0938: Subjective Date Seen by a Provider: May 20, 2021 Time Seen by a Provider: 09:16 Subjective/Events-last exam Pt is scheduled to have a colonoscopy today due to rectal bleeding. Nurse reports that pt was having issues taking bowel prep last night due to dysphagia. She is passing stools and having diarrhea but nurse reports that the diarrhea is not clear. Nurse has not seen any recent rectal bleeding. She has troubles with due to previous CVA communication but did shake her head no when I asked if she was in any pain and if she had any concerns. A family member was present in the room and did not have any questions. Review of Systems Unable to obtain Objective Exam Vital Signs Date Time Temp Pulse Resp B/P (MAP) Pulse Ox O2 Delivery O2 Flow Rate FiO2 05/20/21 08:00 Room Air 05/20/21 07:52 36.7 70 17 162/82 98 Room Air 05/20/21 07:20 97 Room Air 05/20/21 06:39 64 05/20/21 04:13 67 13 163/86 97 Room Air 05/20/21 03:51 36.6 05/20/21 03:51 Room Air 05/20/21 01:00 68 05/20/21 00:00 63 16 153/73 98 Room Air 05/19/21 23:45 36.6 Room Air 05/19/21 23:44 Room Air 05/19/21 20:00 Room Air 05/19/21 19:48 36.7 72 20 145/70 96 Room Air 05/19/21 19:00 71 05/19/21 16:00 Room Air 05/19/21 15:53 37.1 68 22 147/78 97 Room Air 05/19/21 14:45 37.2 70 21 155/75 97 Room Air 05/19/21 13:00 68 05/19/21 12:00 Room Air I & O 05/20/21 07:00 Intake Total 800 ml Output Total 1 ml Balance 799 ml Capillary Refill : Less Than 3 Seconds General Appearance: No Apparent Distress, WD/WN HEENT: PERRL/EOMI; No Photophobia Neck: Non Tender, Supple Respiratory: Lungs Clear, Normal Breath Sounds, No Accessory Muscle Use, No Respiratory Distress Cardiovascular: Regular Rate, Rhythm, No Murmur, Normal Peripheral Pulses Peripheral Pulses: 2+ Radial Pulses (R), 2+ Radial Pulses (L) Gastrointestinal: non tender, soft Extremity: Normal Inspection, No Calf Tenderness, No Pedal Edema Neurologic/Psychiatric: Alert, Aphasia (expressive) Skin: Normal Color, Warm/Dry Lymphatic: No Adenopathy (cervical) Results Lab Laboratory Tests 05/19/21 13:30: SARS-CoV-2 RNA (RT-PCR) DetectedH 05/20/21 05:15: White Blood Count 5.9, Red Blood Count 3.41L, Hemoglobin 10.1L, Hematocrit 31L, Mean Corpuscular Volume 92, Mean Corpuscular Hemoglobin 30, Mean Corpuscular He moglobin Concent 32, Red Cell Distribution Width 13.5, Platelet Count 351, Mean Platelet Volume 10.1, Immature Granulocyte % (Auto) 1, Neutrophils (%) (Auto) 68, Lymphocytes (%) (Auto) 21, Monocytes (%) (Auto) 8, Eosinophils (%) (Auto) 2, Basophils (%) (Auto) 0, Neutrophils # (Auto) 4.0, Lymphocytes # (Auto) 1.2, Monocytes # (Auto) 0.5, Eosinophils # (Auto) 0.1, Basophils # (Auto) 0.0, Immature Granulocyte # (Auto) 0.0, Sodium Level 143, Potassium Level 3.2L, Chloride Level 112H, Carbon Dioxide Level 19L, Anion Gap 12, Blood Urea Nitrogen 23H, Creatinine 0.52L, Estimat Glomerular Filtration Rate 103, BUN/Creatinine Ratio 44, Glucose Level 109H, Calcium Level 8.0L, Corrected Calcium 9.0, Total Bilirubin 0.5, Aspartate Amino Transf (AST/SGOT) 17, Alanine Aminotransferase (ALT/SGPT) 17, Alkaline Phosphatase 112, Total Protein 5.6L, Albumin 2.8L Microbiology 05/18/21 Urine Culture - Preliminary, Resulted Escherichia coli Assessment/Plan Assessment/Plan Assessment/Plan Rectal Bleed Biliary Dyskinesia Hypernatremia-improved 143 today Hypokalemia- 3.2 Bowel Prep began yesterday, Colonoscopy planned for today Hold anticoagulation Continue to monitor labs and vitals Case discussed with radiologist yesterday and he agrees there may be an erosion of the rectal wall. Pt may need a diverting colostomy, which would also help with her decubitus ulcers and clean up for pt. Clinical Quality Measures DVT/VTE Risk/Contraindication: Contraindications-Pharm: Other *list below* Other: SHERMAN Delaney DO 05/20/21 1303: Subjective Time Seen by a Provider: 10:58 Subjective/Events-last exam Pt seen and examined, she is sitting up in bed and appears comfortable. Family member in her room. Review of Systems Unable to obtain Objective Exam General Appearance: No Apparent Distress HEENT: PERRL/EOMI Respiratory: Lungs Clear, Normal Breath Sounds, No Accessory Muscle Use, No Respiratory Distress Cardiovascular: Regular Rate, Rhythm, No Murmur Gastrointestinal: non tender, soft Neurologic/Psychiatric: Alert, Aphasia (expressive) Skin: Other (sacral decub and gluteal) Assessment/Plan Assessment/Plan Assessment/Plan Rectal Bleed Biliary Dyskinesia Hypernatremia-improved 143 today Hypokalemia- 3.2 Bowel Prep began yesterday, Colonoscopy planned for today Hold anticoagulation Continue to monitor labs and vitals Case discussed with radiologist yesterday and he agrees there may be an erosion of the rectal wall. Pt may need a diverting colostomy, which would also help with her decubitus ulcers and clean up for pt. Supervisory-Addendum Brief Verification & Attestation Participated in pt care: history, MDM, physical Personally performed: exam, history, MDM, supervision of care Care discussed with: Medical Student Procedures: n/a Verification and Attestation of Medical Student E/M Service A medical student performed and documented this service. I then reviewed and verified all information documented by the medical student and made modifications to such information, when appropriate. I personally performed a physical exam, medical decision making and then discussed any differences between the notes and made revisions as necessary to create one note. Sherman Chambers , 05/20/21 , 13:02 WILLIE NICHOLAS May 20, 2021 09:38 SHERMAN CHAMBERS DO May 20, 2021 13:03
[2021-05-20] MEDS: CIPROFLOXACIN IV 400MG/200ML 200 ML IV SCH ×2 (10:39→21:34)
[2021-05-20] MEDS: inSUlin ASPART (NovoLOG) 1 UNIT/0.01 ML (CHARGE PER UNIT) SC SCH ×3 (11:26→20:12)
[2021-05-20] MEDS ORDERED: metroNIDAZOLE 500MG/100ML IVPB 100 ML ONE (11:55)
[2021-05-20] MEDS: metroNIDAZOLE 500MG/100ML IVPB 250 MG in EMPTY IV BAG (PVC) 1 EA IV SCH ×2 (11:57→21:34)
--- NOTE | 2021-05-20 15:43 | Progress Note ---
Subjective Subjective Date Seen by Provider: May 20, 2021 Time Seen by Provider: 08:50 Patient denied any abdominal pain, nausea/vomiting, sweats or chills today. Review of Systems ROS Unable to Obtain: pt can only answer yes or no questions Cardiovascular: No: Chest Pain Gastrointestinal: No: Nausea, Vomiting, Abdominal Pain Objective Exam Vital Signs Vital Signs Date Time Temp Pulse Resp B/P (MAP) Pulse Ox O2 Delivery O2 Flow Rate FiO2 05/20/21 12:54 69 05/20/21 12:00 Room Air 05/20/21 11:42 36.8 78 19 136/69 97 05/20/21 08:00 Room Air 05/20/21 07:52 36.7 70 17 162/82 98 Room Air 05/20/21 07:20 97 Room Air 05/20/21 06:39 64 05/20/21 04:13 67 13 163/86 97 Room Air 05/20/21 03:51 36.6 05/20/21 03:51 Room Air 05/20/21 01:00 68 05/20/21 00:00 63 16 153/73 98 Room Air 05/19/21 23:45 36.6 Room Air 05/19/21 23:44 Room Air 05/19/21 20:00 Room Air 05/19/21 19:48 36.7 72 20 145/70 96 Room Air 05/19/21 19:00 71 05/19/21 16:00 Room Air 05/19/21 15:53 37.1 68 22 147/78 97 Room Air I & O 05/20/21 07:00 Intake Total 800 ml Output Total 1 ml Balance 799 ml General Appearance: No Apparent Distress, Chronically ill Eyes: Bilateral Eye PERRL, Bilateral Eye EOMI HEENT: PERRL/EOMI Neck: Non Tender, Supple Respiratory: Lungs Clear, Normal Breath Sounds, No Accessory Muscle Use, No Respiratory Distress Cardiovascular: Regular Rate, Rhythm, No Murmur Gastrointestinal: Normal Bowel Sounds, Non Tender, Soft Rectal: Heme Positive Stool Back: Normal Inspection Extremity: Normal Inspection, No Calf Tenderness, No Pedal Edema Neurologic/Psychiatric: Alert, Aphasia (expressive) Skin: Other (sacral decub and gluteal) Lymphatic: No Adenopathy (cervical) Results Lab Laboratory Tests 05/20/21 05:15: White Blood Count 5.9, Red Blood Count 3.41L, Hemoglobin 10.1L, Hematocrit 31L, Mean Corpuscular Volume 92, Mean Corpuscular Hemoglobin 30, Mean Corpuscular Hemoglobin Concent 32, Red Cell Distribution Width 13.5, Platelet Count 351, Mean Platelet Volume 10.1, Immature Granulocyte % (Auto) 1, Neutrophils (%) (Auto) 68, Lymphocytes (%) (Auto) 21, Monocytes (%) (Auto) 8, Eosinophils (%) (Auto) 2, Basophils (%) (Auto) 0, Neutrophils # (Auto) 4.0, Lymphocytes # (Auto) 1.2, Monocytes # (Auto) 0.5, Eosinophils # (Auto) 0.1, Basophils # (Auto) 0.0, Immature Granulocyte # (Auto) 0.0, Sodium Level 143, Potassium Level 3.2L, Chloride Level 112H, Carbon Dioxide Level 19L, Anion Gap 12, Blood Urea Nitrogen 23H, Creatinine 0.52L, Estimat Glomerular Filtration Rate 103, BUN/Creatinine Ratio 44, Glucose Level 109H, Calcium Level 8.0L, Corrected Calcium 9.0, Total Bilirubin 0.5, Aspartate Amino Transf (AST/SGOT) 17, Alanine Aminotransferase (ALT/SGPT) 17, Alkaline Phosphatase 112, Total Protein 5.6L, Albumin 2.8L 05/20/21 10:59: Glucometer 118H 05/20/21 15:18: Glucometer 104 Microbiology 05/19/21 MRSA Screen - Final, Complete MRSA not isolated 05/18/21 Urine Culture - Final, Complete Escherichia coli Assessment/Plan Assessment/Plan Assessment and Plan UTI Rectal bleed Anemia Hypernatremia Hypokalemia Hgb stable 10.1 Suspected lower GI bleed, colonoscopy planned today to evaluate Continue Cipro and Flagyl for colitis/UTI Correcting electrolyte abnormalities Problems: (1) GI bleeding (2) UTI (urinary tract infection) Qualifiers: Qualified Codes: N30.01 - Acute cystitis with hematuria Admission Dx Rectal bleed UTI Clinical Quality Measures Admission Status Admission Dx Rectal bleed UTI DVT/VTE Risk/Contraindication: Contraindications-Pharm: Other *list below* Other: gib Supervisory-Addendum Brief Verification & Attestation Participated in pt care: history, MDM, physical Personally performed: exam, history, MDM, supervision of care Care discussed with: Medical Student Procedures: n/a Results interpretation: Verified all documentation A medical student performed and documented this service in my presence. I reviewed and verified all information documented by the medical student and made modifications to such information, when appropriate. I personally performed the physical exam and medical decision making. LORETTA TUCKER May 20, 2021 15:43 TOMY GOODMAN MD May 20, 2021 18:38
[2021-05-20] MEDS ORDERED: LACTATED RINGERS 1,000 ML IV STA (17:06)
[2021-05-20] MEDS ORDERED: LACTATED RINGERS 1,000 ML IV ONE (17:08)
[2021-05-20] MEDS ORDERED: MIDAZOLAM 2 MG/2 ML (VERSED) VIAL ONE (17:31)
[2021-05-20] MEDS ORDERED: proPOfol 200 MG/20 ML (DIPRIVAN) VIAL IV ONE (17:31)
[2021-05-20] MEDS ORDERED: PROPOFOL INJECTION 50 ML IV ONE (17:57)
[2021-05-20 18:00] VITALS: BP 113/59
[2021-05-20 18:05] VITALS: BP 122/60
[2021-05-20 18:09] VITALS: BP 151/72
--- NOTE | 2021-05-20 18:16 | Progress Note-Post Operative ---
Post-Operative Progess Note Surgeon (s)/Sign Language Translator (s) Surgeon CARLOS LEMUS DO Sign Language Translator: none Pre-Operative Diagnosis Rectal bleed Post-Operative Diagnosis Same plus rectal ulceration colitis int hemorrhoids Procedure & Operative Findings Date of Procedure 05/20/21 Procedure Performed/Findings Colonoscopy with hot bx Anesthesia Type IV sedation by CLINICAL TRIAL MANAGER Estimated Blood Loss Estimated blood loss (mL): scant Specimens/Packing Specimens Removed rectal ulceration bx CARLOS LEMUS DO May 20, 2021 18:16
[2021-05-20] MEDS ORDERED: KCL 20 MEQ TAB (K-DUR) PO NR (18:45)
[2021-05-20] MEDS ORDERED: POTASSIUM CL 10MEQ/50ML IVPB 200 ML IV ONE (20:40)
[2021-05-20] MEDS: POTASSIUM CL 10MEQ/50ML IVPB 50 ML IV SCH ×3 (20:42→21:34)
--- NOTE | 2021-05-20 21:47 | OPERATIVE REPORT ---
DATE OF SERVICE: 05/20/2021 PREOPERATIVE DIAGNOSIS: Rectal bleed. POSTOPERATIVE DIAGNOSES: 1. Rectal bleed, rectal ulceration. 2. Colitis. 3. Internal hemorrhoids. PROCEDURE: Colonoscopy with hot biopsy. SURGEON: Sherman Chambers DO CLIPPER MACHINE: None. ANESTHESIA: IV sedation by the MAINTENANCE CHIEF. SPECIMEN: Biopsies from the rectal ulceration. BLOOD LOSS: Scant. FLUIDS: Per anesthesia. POSTOPERATIVE CONDITION: Stable. INDICATION FOR PROCEDURE: The patient is a 65-year-old female who came in with some rectal bleeding. Noted to have a UTI. She was admitted. Digital rectal exam was performed, showed what felt like an ulceration. CAT scan was done, which showed possible perforation into the retroperitoneum, needed colonoscopy at least to look at this area. FINDINGS: The patient had some colitis in the upper portion of the colon. We did not have a complete prep, so did not finish the colonoscopy, but down in the rectum she had one large ulceration and another small, and pictures taken. PROCEDURE NOTE: After informed consent was obtained from the daughter, the patient was brought to the endoscopy suite, placed in bed in the left lateral decubitus position. She was administered IV sedation by the MAINTENANCE CHIEF, who then monitored her vitals the entire time, heart rate, blood pressure and pulse ox. She had a lot of retained fecal material in the rectum, able to push past this and then do a lot of irrigation, pushed up all the way past the splenic flexure into the transverse colon. Transverse colon looked okay, took a picture of this and then slowly withdrew the could not get much further past this because of the amount of retained fecal material, so elected not to try and push up there to cause any problems. Pulled back insufflating to look circumferentially at the chandler looking at the transverse colon, the splenic flexure and then down the descending colon there appeared to be some colitis, took a picture of this and then down into the sigmoid colon, finally into the rectum. In the rectum, saw an area of possible necrotic tissue, took a picture of this and then saw this large ulceration, looked like it went through the rectal wall and possibly into the retroperitoneum. It also did look like it was possibly mature though, took pictures of this and then elected to do biopsies of this. Hot biopsies were performed, saw small ulceration or hole on the opposite side of this large ulceration, took a picture of this as well. There were some minimal internal hemorrhoids that I saw removed the scope, did not see any other obvious pathology, but this looked very bad, removed the scope. The patient tolerated the procedure, and she was recovered in endoscopy suite. Job ID: [id number] DocumentID: [id number] Dictated Date: 05/20/2021 18:23:01 Accounting Specialist Date: 05/20/2021 21:47:18 Dictated By: SHERMAN CHAMBERS DO
[2021-05-21] VITALS (7 sets, daily range): BP systolic 156–168; BP diastolic 78–86
[2021-05-21] MEDS: inSUlin ASPART (NovoLOG) 1 UNIT/0.01 ML (CHARGE PER UNIT) SC SCH ×4 (05:14→21:04)
[2021-05-21 05:42] LABS: BASOPHILS % (AUTO) 0 % (0-10); EOSINOPHILS # (AUTO) 0.1 10^3/uL (0.0-0.3); EOSINOPHILS % (AUTO) 2 % (0-10); HEMATOCRIT 30 % (35-52); HEMOGLOBIN 9.5 g/dL (11.5-16.0); LYMPHOCYTES # (AUTO) 1.4 10^3/uL (1.0-4.0); LYMPHOCYTES % (AUTO) 21 % (12-44); MEAN CORPUSCULAR HEMOGLOBIN 29 pg (25-34); MEAN CORPUSCULAR HGB CONC 32 g/dL (32-36); MEAN CORPUSCULAR VOLUME 92 fL (80-99); MEAN PLATELET VOLUME 10.3 fL (9.0-12.2); MONOCYTES # (AUTO) 0.6 10^3/uL (0.0-1.0); MONOCYTES % (AUTO) 9 % (0-12); NEUTROPHILS # (AUTO) 4.3 10^3/uL (1.8-7.8); NEUTROPHILS % (AUTO) 66 % (42-75); PLATELET COUNT 358 10^3/uL (130-400); WHITE BLOOD COUNT 6.4 10^3/uL (4.3-11.0)
[2021-05-21 05:59] LABS: ALBUMIN 2.7 GM/DL (3.2-4.5)
[2021-05-21 06:00] LABS: POTASSIUM 3.5 MMOL/L (3.6-5.0)
[2021-05-21 06:01] LABS: CALCIUM 7.7 MG/DL (8.5-10.1)
[2021-05-21 06:02] LABS: TOTAL PROTEIN 5.4 GM/DL (6.4-8.2)
[2021-05-21 06:04] LABS: BILIRUBIN,TOTAL 0.5 MG/DL (0.1-1.0)
[2021-05-21 06:06] LABS: CREATININE SERUM 0.53 MG/DL (0.60-1.30)
--- NOTE | 2021-05-21 07:30 | Progress Note - Surgery ---
WILLIE NICHOLAS 05/21/21 0730: Subjective Date Seen by a Provider: May 21, 2021 Time Seen by a Provider: 06:32 Subjective/Events-last exam Pt was awake and sitting up when I entered the room. When asked if she had a colonoscopy yesterday she did squeeze my hand. Attempted to get her to answer more questions w/ hand squeezes but it was unsuccessful. Review of Systems Unable to obtain Objective Exam Vital Signs Date Time Temp Pulse Resp B/P (MAP) Pulse Ox O2 Delivery O2 Flow Rate FiO2 05/21/21 03:26 36.4 65 97 21 05/21/21 03:24 36.5 64 14 164/76 98 Room Air 05/21/21 01:00 68 05/20/21 23:55 37.4 65 15 162/78 97 Room Air 05/20/21 20:00 97 Room Air 05/20/21 19:40 37.1 65 18 132/70 97 Room Air 05/20/21 19:00 65 05/20/21 18:45 60 132/68 100 Room Air 05/20/21 18:30 16 131/69 100 Room Air 05/20/21 18:20 60 134/65 100 Room Air 05/20/21 18:09 69 16 98 Room Air 05/20/21 18:05 61 16 100 OxyMask 05/20/21 18:00 62 20 100 OxyMask 05/20/21 15:54 36.8 86 22 138/68 98 05/20/21 12:54 69 05/20/21 12:00 Room Air 05/20/21 11:42 36.8 78 19 136/69 97 05/20/21 08:00 Room Air 05/20/21 07:52 36.7 70 17 162/82 98 Room Air I & O 05/21/21 07:00 Intake Total 700 ml Balance 700 ml Capillary Refill : Less Than 3 Seconds General Appearance: No Apparent Distress, Chronically ill Neck: Non Tender, Supple Respiratory: Lungs Clear, Normal Breath Sounds, No Accessory Muscle Use, No Respiratory Distress Cardiovascular: Regular Rate, Rhythm, No Murmur, Normal Peripheral Pulses Peripheral Pulses: 2+ Radial Pulses (R), 2+ Radial Pulses (L) Gastrointestinal: non tender, soft Extremity: Normal Inspection, No Calf Tenderness, No Pedal Edema Neurologic/Psychiatric: Alert, Aphasia (expressive) Skin: Normal Color, Warm/Dry, Other Lymphatic: No Adenopathy (cervical) Results Lab Laboratory Tests 05/20/21 10:59: Glucometer 118H 05/20/21 15:18: Glucometer 104 05/20/21 20:08: Glucometer 106 05/21/21 05:14: Glucometer 136H 05/21/21 05:15: White Blood Count 6.4, Red Blood Count 3.27L, Hemoglobin 9.5L, Hematocrit 30L, Mean Corpuscular Volume 92, Mean Corpuscular Hemoglobin 29, Mean Corpuscular Hemoglobin Concent 32, Red Cell Distribution Width 13.5, Platelet Count 358, Mean Platelet Volume 10.3, Immature Granulocyte % (Auto) 1, Neutrophils (%) (Auto) 66, Lymphocytes (%) (Auto) 21, Monocytes (%) (Auto) 9, Eosinophils (%) (Auto) 2, Basophils (%) (Auto) 0, Neutrophils # (Auto) 4.3, Lymphocytes # (Auto) 1.4, Monocytes # (Auto) 0.6, Eosinophils # (Auto) 0.1, Basophils # (Auto) 0.0, Immature Granulocyte # (Auto) 0.1, Sodium Level 140, Potassium Level 3.5L, Chloride Level 111H, Carbon Dioxide Level 17L, Anion Gap 12, Blood Urea Nitrogen 15, Creatinine 0.53L, Estimat Glomerular Filtration Rate 103, BUN/Creatinine R atio 28, Glucose Level 143H, Calcium Level 7.7L, Corrected Calcium 8.7, Total Bilirubin 0.5, Aspartate Amino Transf (AST/SGOT) 15, Alanine Aminotransferase (ALT/SGPT) 16, Alkaline Phosphatase 96, Total Protein 5.4L, Albumin 2.7L Microbiology 05/19/21 MRSA Screen - Final, Complete MRSA not isolated 05/18/21 Urine Culture - Final, Complete Escherichia coli Assessment/Plan Assessment/Plan Assessment/Plan Rectal bleed Rectal ulcers Colitis Biliary dyskinesia anemia-stable Hypernatremia-improved 140 today Hypokalemia- 3.2 Colonoscopy done yesterday showed some colitis in the upper portion of the colon. In rectum she had one large ulceration and another small, pictures taken Continue antibiotics Continue to monitor labs and vitals Anticoagulation medication to be restarted today by medicine Case discussed with radiologist yesterday and he agrees there may be an erosion of the rectal wall. Pt may need a diverting colostomy, which would also help with her decubitus ulcers and clean up for pt. Clinical Quality Measures DVT/VTE Risk/Contraindication: Contraindications-Pharm: Other *list below* Other: SHERMAN Delaney DO 05/21/21 1103: Subjective Time Seen by a Provider: 10:48 Subjective/Events-last exam Pt seen and examined. I told her about our plans for diverting colostomy. Her family member at bedside. Review of Systems unable to obtain Objective Exam General Appearance: No Apparent Distress, Chronically ill Respiratory: Lungs Clear, Normal Breath Sounds, No Accessory Muscle Use, No Respiratory Distress Cardiovascular: Regular Rate, Rhythm, No Murmur Gastrointestinal: non tender, soft Neurologic/Psychiatric: Alert, Aphasia (expressive) Skin: Other (sacral decub) Assessment/Plan Assessment/Plan Assessment/Plan Rectal bleed Rectal ulcers Colitis Biliary dyskinesia anemia-stable Hypernatremia-improved 140 today Hypokalemia- 3.2 Colonoscopy done yesterday showed some colitis in the upper portion of the colon. In rectum she had one large ulceration and another small, pictures taken Continue antibiotics Continue to monitor labs and vitals Anticoagulation medication to be restarted today by medicine Plan is diverting colostomy, which would also help with her decubitus ulcers and clean up for pt. Supervisory-Addendum Brief Verification & Attestation Participated in pt care: history, MDM, physical Personally performed: exam, history, MDM, supervision of care Care discussed with: Medical Student Procedures: n/a Verification and Attestation of Medical Student E/M Service A medical student performed and documented this service. I then reviewed and verified all information documented by the medical student and made modificatio ns to such information, when appropriate. I personally performed a physical exam, medical decision making and then discussed any differences between the notes and made revisions as necessary to create one note. Sherman Chambers , 05/21/21 , 11:02 WILLIE NICHOLAS May 21, 2021 07:30 SHERMAN CHAMBERS DO May 21, 2021 11:03
[2021-05-21] MEDS: PANTOPRAZOLE 40 MG (PROTONIX) VIAL IV SCH ×2 (08:53→21:04)
[2021-05-21] MEDS ORDERED: ASPIRIN 81 MG CHEW (CHILDREN'S ASA) PO SCH (09:00)
[2021-05-21] MEDS ORDERED: CLOPIDOGREL 75 MG (PLAVIX) TABLET PO SCH (09:00)
[2021-05-21] MEDS ORDERED: fentaNYL INJ 100 MCG/2 ML AMP ONE (09:14)
[2021-05-21] MEDS ORDERED: LACTATED RINGERS 1,000 ML IV PRN (09:30)
[2021-05-21] MEDS ORDERED: LIDOCAINE/EPI 1%-1:200,000 (XYLOCAINE) 30 ML VIAL ONE (09:35)
[2021-05-21] MEDS: SENNOSIDES 8.6 MG (SENOKOT) TAB PO SCH ×2 (09:47→21:05)
[2021-05-21] MEDS: DOCUSATE SODIUM 100 MG (COLACE) CAP PO SCH ×2 (09:47→21:05)
[2021-05-21] MEDS: lisINopril 10 MG (PRINIVIL) TABLET PO SCH (09:48)
[2021-05-21] MEDS ORDERED: metroNIDAZOLE 500MG/100ML IVPB 0 ML ONE (09:50)
[2021-05-21] MEDS: NS W/KCL 20 MEQ/L 1,000 ML IV SCH (09:52)
[2021-05-21] MEDS: metroNIDAZOLE 500MG/100ML IVPB 250 MG in EMPTY IV BAG (PVC) 1 EA IV SCH ×2 (09:57→21:05)
[2021-05-21] MEDS: CIPROFLOXACIN IV 400MG/200ML 200 ML IV SCH ×2 (09:57→21:05)
[2021-05-21] MEDS ORDERED: LIDOCAINE PF 2% 5 ML (XYLOCAINE) VIAL ONE (10:38)
[2021-05-21] MEDS ORDERED: proPOfol 200 MG/20 ML (DIPRIVAN) VIAL IV ONE ×2 (10:38→11:31)
[2021-05-21] MEDS ORDERED: ROCURONIUM 10 MG/ML 5 ML SYRINGE IV ONE (11:31)
[2021-05-21] MEDS ORDERED: ONDANSETRON 4 MG/2 ML (SDV) Z0FRAN ONE (11:31)
--- NOTE | 2021-05-21 11:43 | Physician Query Clarification ---
Physician Query-General Query to Physician: The medical record reflects the following clinical evidence: Clinical Indicators: Documentation on the Nursing admission assessment of a Stage 2 pressure ulcer to Right buttock and Stage 3 pressure ulcer to left buttock, Surgeon documenting "diverting colostomy, which would also help with her decubitus ulcers and clean up for pt." Risk Factor(s): CVA with L sided Hemiparesis/flaccid, DM, Rectal bleeding with liquid stools Treatment: Off loading, Turn/reposition q 2, Barrier Cream, Allevyn dressing, Surgery consult, Nutrition/intake monitoring, 1. Pressure ulcer of right buttock, stage 2,and Pressure ulcer of Left Buttock stage 3 present on admission 2. Other explanation of clinical findings 3. Unable to determine (no explanation for clinical findings) Please clarify and document your clinical opinion in the progress notes and discharge summary including the definitive and/or presumptive diagnosis, (suspected or probable), related to the above clinical findings. Please include clinical findings supporting your diagnosis. Cecelia Collins MSN, RN Clinical Internet Sales Manager [phone] [email or web address] PHYSICIAN RESPONSE: Based on the clinical findings in the record, please respond to the query above on this document as an addendum. Physician Response: Physician Response 1 If you have questions please contact: Nurse Midwife/Clinical Instructor: Ext: Thank you for your time and cooperation. Clinical Internet Sales Manager/Nurse Midwife/Clinical Instructor This is a permanent part of the medical record CECELIA COLLINS May 21, 2021 11:43 TOMY GOODMAN MD May 21, 2021 22:19
--- NOTE | 2021-05-21 11:58 | Progress Note ---
Subjective Subjective Date Seen by Provider: May 21, 2021 Time Seen by Provider: 09:00 Patient denied any abdominal pain, nausea/vomiting, sweats or chills today. Review of Systems ROS Unable to Obtain: pt can only answer yes or no questions Cardiovascular: No: Chest Pain Gastrointestinal: No: Nausea, Vomiting, Abdominal Pain Objective Exam Vital Signs Vital Signs Date Time Temp Pulse Resp B/P (MAP) Pulse Ox O2 Delivery O2 Flow Rate FiO2 05/21/21 08:00 97 Room Air 05/21/21 07:56 36.6 74 16 158/81 98 Room Air 05/21/21 07:30 98 Room Air 05/21/21 07:00 73 05/21/21 03:26 36.4 65 97 21 05/21/21 03:24 36.5 64 14 164/76 98 Room Air 05/21/21 01:00 68 05/20/21 23:55 37.4 65 15 162/78 97 Room Air 05/20/21 20:00 97 Room Air 05/20/21 19:40 37.1 65 18 132/70 97 Room Air 05/20/21 19:00 65 05/20/21 18:45 60 132/68 100 Room Air 05/20/21 18:30 16 131/69 100 Room Air 05/20/21 18:20 60 134/65 100 Room Air 05/20/21 18:09 69 16 98 Room Air 05/20/21 18:05 61 16 100 OxyMask 05/20/21 18:00 62 20 100 OxyMask 05/20/21 15:54 36.8 86 22 138/68 98 05/20/21 12:54 69 05/20/21 12:00 Room Air I & O 05/21/21 07:00 Intake Total 700 ml Balance 700 ml General Appearance: No Apparent Distress, Chronically ill Eyes: Bilateral Eye PERRL, Bilateral Eye EOMI Neck: Non Tender, Supple Respiratory: Lungs Clear, Normal Breath Sounds, No Accessory Muscle Use, No Respiratory Distress Cardiovascular: Regular Rate, Rhythm, No Murmur Gastrointestinal: Normal Bowel Sounds, Non Tender, Soft Rectal: Heme Positive Stool Back: Normal Inspection Extremity: Normal Inspection, No Calf Tenderness, No Pedal Edema Neurologic/Psychiatric: Alert, Aphasia (expressive) Skin: Other (sacral decub) Lymphatic: No Adenopathy (cervical) Results Lab Laboratory Tests 05/20/21 15:18: Glucometer 104 05/20/21 20:08: Glucometer 106 05/21/21 05:14: Glucometer 136H 05/21/21 05:15: White Blood Count 6.4, Red Blood Count 3.27L, Hemoglobin 9.5L, Hematocrit 30L, Mean Corpuscular Volume 92, Mean Corpuscular Hemoglobin 29, Mean Corpuscular Hemoglobin Concent 32, Red Cell Distribution Width 13.5, Platelet Count 358, Mean Platelet Volume 10.3, Immature Granulocyte % (Auto) 1, Neutrophils (%) (Auto) 66, Lymphocytes (%) (Auto) 21, Monocytes (%) (Auto) 9, Eosinophils (%) (Auto) 2, Basophils (%) (Auto) 0, Neutrophils # (Auto) 4.3, Lymphocytes # (Auto) 1.4, Monocytes # (Auto) 0.6, Eosinophils # (Auto) 0.1, Basophils # (Auto) 0.0, Immature Granulocyte # (Auto) 0.1, Sodium Level 140, Potassium Level 3.5L, Chloride Level 111H, Carbon Dioxide Level 17L, Anion Gap 12, Blood Urea Nitrogen 15, Creatinine 0.53L, Estimat Glomerular Filtration Rate 103, BUN/Creatinine Ratio 28, Glucose Level 143H, Calcium Level 7.7L, Corrected Calcium 8.7, Total Bilirubin 0.5, Aspartate Amino Transf (AST/SGOT) 15, Alanine Aminotransferase (ALT/SGPT) 16, Alkaline Phosphatase 96, Total Protein 5.4L, Albumin 2.7L 05/21/21 10:16: Glucometer 155H Microbiology 05/19/21 MRSA Screen - Final, Complete MRSA not isolated 05/18/21 Urine Culture - Final, Complete Escherichia coli Assessment/Plan Assessment/Plan Assessment and Plan UTI Rectal bleed Rectal Ulcers Colitis Anemia - Hgb stable 9.5 - Suspected lower GI bleed, colonoscopy revealed multiple rectal ulcers. Diverting colostomy planned for today - Continue Flagyl/Cipro for UTI and colitis Problems: (1) Rectal ulcer (2) UTI (urinary tract infection) Qualifiers: Qualified Codes: N30.01 - Acute cystitis with hematuria (3) GI bleeding (4) Urinary tract infection (5) History of CVA with residual deficit Clinical Quality Measures DVT/VTE Risk/Contraindication: Contraindications-Pharm: Other *list below* Other: [facility] Supervisory-Addendum Brief Verification & Attestation Participated in pt care: history, MDM, physical Personally performed: exam, history, MDM, supervision of care Care discussed with: Medical Student Procedures: n/a Results interpretation: Verified all documentation A medical student performed and documented this service in my presence. I reviewed and verified all information documented by the medical student and made modifications to such information, when appropriate. I personally performed the physical exam and medical decision making. LORETTA TUCKER May 21, 2021 11:58 TOMY GOODMAN MD May 21, 2021 21:49
[2021-05-21] MEDS ORDERED: HYDROmorphone 2 MG/ML VIAL (DILAUDID) ONE ×2 (12:07→13:13)
--- NOTE | 2021-05-21 12:28 | Progress Note-Post Operative ---
Post-Operative Progess Note Surgeon (s)/Willow Analyst (s) Surgeon CARLOS LEMUS DO Willow Analyst: Janet Pre-Operative Diagnosis Rectal mass/ulceration Post-Operative Diagnosis Diverting colostomy Procedure & Operative Findings Date of Procedure 05/21/21 Procedure Performed/Findings Laparoscopic Transverse Loop Colostomy Anesthesia Type GET Estimated Blood Loss Estimated blood loss (mL): scant Specimens/Packing Specimens Removed none CARLOS LEMUS DO May 21, 2021 12:28
[2021-05-21] MEDS ORDERED: NEOSTIGMINE 3 MG/3 ML VIAL ONE (12:30)
[2021-05-21] MEDS ORDERED: GLYCOPYRROLATE 0.2 MG/ML (ROBINUL) 2 ML VIAL ONE (12:30)
[2021-05-21] MEDS ORDERED: SEVOFLURANE (ULTANE) 15 ML INHAL SOLN ONE (12:33)
[2021-05-21] MEDS ORDERED: ONDANSETRON 4 MG/2 ML (SDV) Z0FRAN IVP PRN (13:00)
[2021-05-21] MEDS ORDERED: morphine INJ 10 MG/ML 1ML (SYR OR VIAL) IVP ONE (13:00)
[2021-05-21] MEDS ORDERED: HYDROmorphone 2 MG/ML VIAL (DILAUDID) IV ONE (13:00)
[2021-05-21] MEDS ORDERED: MEPERIDINE (DEMEROL) INJ 50 MG/ML IVP ONE (13:00)
--- NOTE | 2021-05-21 19:18 | OPERATIVE REPORT ---
DATE OF SERVICE: 05/21/2021 PREOPERATIVE DIAGNOSES: Ulcerated rectal mass with possible perforation. POSTOPERATIVE DIAGNOSES: Ulcerated rectal mass with possible perforation. PROCEDURE PERFORMED: Laparoscopic transverse loop colostomy. SURGEON: Sherman Chambers DO. CANDY MAKER: Fuad Gonzales DO. ANESTHESIA: General endotracheal tube. SPECIMENS: None. BLOOD LOSS: Scant. FLUIDS: Per anesthesia. POSTOPERATIVE CONDITION: Stable. INDICATION FOR PROCEDURE: The patient is a 65-year-old female, who had a rectal bleeding and found to have an ulcerated rectal mass or perforation, needed diverting colostomy to let this area heal. FINDINGS: The patient had a transverse loop colostomy performed without any difficulty. PROCEDURE NOTE: After informed consent was obtained, the patient was brought to the operating room and placed on the operating table in supine position. She was sterilely prepped and draped in normal fashion. A midline incision was made about 5 to 6 cm above the umbilicus, made an incision with 11 blade, carried down through the skin and subcutaneous tissue, then deepened down to subcutaneous tissue with Bovie electrocautery down to the fascia. Fascia was incised with Bovie electrocautery and bluntly entered the abdomen and I then placed a limited trocar port under direct visualization, held in place with a balloon, placed two more ports in the right lower quadrant using an 11 blade for stab incision and VersaStep system, all done under direct visualization. She had a very floppy transverse colon. This was good and made it easiest for us to bring this up to the abdominal wall, able to grasp the omentum, hold this back and then right under the omentum and above the transverse colon, came across this area with a LigaSure, clamping, coagulating and transecting in this fashion getting into the lesser sac, but basically freeing up the transverse colon, so we will be able to bring it up to the midline. Once we had come across this area and freed up this transverse colon and then able to grasp this with a Andrew, had switched camera, mm camera from below and then removed the limited trocar port, increased the incision along the fascia and then brought the transverse colon through, then made a defect in the mesentery with a Bovie electrocautery and blunt dissection. Placed a bridge under here and then sutured the bridge in place with 2-0 nylon at the four openings on the bridge and then made an incision in the transverse colon and started maturing it, used a omaha type maturation on both proximal and distal portions with 3-0 Vicryl pop-offs. Five sutures were used on the left side and five sutures on the right mature the colostomy to the abdominal wall. Area was then cleaned and dried and an ostomy bag was placed. The patient tolerated the procedure. Sponge, instrument and needle count correct at the end of the case. She was transferred to recovery room in stable condition. Dr. Gonzales assisted in this case helping to make incisions, close incisions, identify anatomy, and help mature the colostomy. Job ID: [id number] DocumentID: [id number] Dictated Date: 05/21/2021 14:36:38 Mobile Product Manager Date: 05/21/2021 19:17:37 Dictated By: SHERMAN CHAMBERS DO
[2021-05-22 05:14] LABS: BASOPHILS % (AUTO) 0 % (0-10); EOSINOPHILS % (AUTO) 0 % (0-10); HEMATOCRIT 30 % (35-52); HEMOGLOBIN 9.7 g/dL (11.5-16.0); LYMPHOCYTES # (AUTO) 1.4 10^3/uL (1.0-4.0); LYMPHOCYTES % (AUTO) 15 % (12-44); MEAN CORPUSCULAR HEMOGLOBIN 30 pg (25-34); MEAN CORPUSCULAR HGB CONC 33 g/dL (32-36); MEAN CORPUSCULAR VOLUME 91 fL (80-99); MEAN PLATELET VOLUME 10.4 fL (9.0-12.2); MONOCYTES # (AUTO) 0.6 10^3/uL (0.0-1.0); MONOCYTES % (AUTO) 7 % (0-12); NEUTROPHILS # (AUTO) 6.8 10^3/uL (1.8-7.8); NEUTROPHILS % (AUTO) 76 % (42-75); PLATELET COUNT 355 10^3/uL (130-400)
[2021-05-22 05:37] LABS: ALBUMIN 2.7 GM/DL (3.2-4.5); POTASSIUM 3.4 MMOL/L (3.6-5.0)
[2021-05-22 05:38] LABS: CALCIUM 7.8 MG/DL (8.5-10.1)
[2021-05-22 05:40] LABS: TOTAL PROTEIN 5.4 GM/DL (6.4-8.2)
[2021-05-22 05:41] LABS: BILIRUBIN,TOTAL 0.3 MG/DL (0.1-1.0)
[2021-05-22 05:43] LABS: CREATININE SERUM 0.52 MG/DL (0.60-1.30)
[2021-05-22] MEDS: inSUlin ASPART (NovoLOG) 1 UNIT/0.01 ML (CHARGE PER UNIT) SC SCH ×2 (07:54→11:39)
--- NOTE | 2021-05-22 08:06 | Progress Note - Surgery ---
WILLIE NICHOLAS 05/22/21 0806: Subjective Date Seen by a Provider: May 22, 2021 Time Seen by a Provider: 07:46 Subjective/Events-last exam Pt was awake and laying in bed this morning when I entered the room. She shook her head no when I asked if she was having any abdominal pain or pain anywhere else. There is a light red seroanguineous fluid in colostomy bag. Colostomy appears viable, it is red to pink in appearance and not retracted. Attempted to ask other yes or no question but pt stopped responding with head movements. Review of Systems Unable to obtain Objective Exam Vital Signs Date Time Temp Pulse Resp B/P (MAP) Pulse Ox O2 Delivery O2 Flow Rate FiO2 05/22/21 07:30 36.6 77 12 148/75 95 Room Air 05/22/21 07:00 81 05/22/21 07:00 74 14 142/71 97 Room Air 05/22/21 04:00 78 16 146/79 96 Room Air 05/22/21 01:00 74 05/22/21 00:00 78 17 152/74 98 Room Air 05/21/21 20:00 97 Room Air 05/21/21 19:18 36.5 75 12 141/70 97 Room Air 05/21/21 19:00 71 05/21/21 18:00 72 10 154/78 96 Room Air 05/21/21 17:00 73 9 147/77 96 Room Air 05/21/21 16:00 71 8 159/83 97 Room Air 05/21/21 15:41 36.6 74 19 154/86 96 Room Air 05/21/21 15:00 69 8 159/86 97 Room Air 05/21/21 14:00 70 7 164/90 96 Room Air 05/21/21 14:00 97 Room Air 05/21/21 13:30 36.9 12 165/81 (109) 94 Room Air 05/21/21 13:30 Room Air 05/21/21 13:20 Room Air 05/21/21 13:20 13 156/81 (106) 94 Room Air 05/21/21 13:10 Room Air 05/21/21 13:10 10 161/85 (110) 98 OxyMask 2 05/21/21 13:00 161/85 95 Room Air 05/21/21 13:00 10 168/86 (113) 100 2 05/21/21 13:00 71 05/21/21 12:55 OxyMask 6 05/21/21 12:50 11 163/83 (109) 100 OxyMask 6 05/21/21 12:42 36.9 18 164/83 (110) 99 OxyMask 6 05/21/21 12:42 OxyMask 6 05/21/21 08:00 97 Room Air I & O 05/22/21 07:00 Intake Total 1250 ml Output Total 925 ml Balance 325 ml Capillary Refill : Less Than 3 SecondsLess Than 3 Seconds General Appearance: No Apparent Distress, Chronically ill Neck: Non Tender, Supple Respiratory: Lungs Clear, Normal Breath Sounds, No Accessory Muscle Use, No Respiratory Distress Cardiovascular: Regular Rate, Rhythm, No Murmur, Normal Peripheral Pulses Peripheral Pulses: 2+ Radial Pulses (R), 2+ Radial Pulses (L) Gastrointestinal: non tender, soft, other (viable appearing colostomy ) Extremity: Normal Inspection, No Calf Tenderness, No Pedal Edema Neurologic/Psychiatric: Alert, Aphasia (expressive) Skin: Normal Color, Warm/Dry, Other (sacral decub) Lymphatic: No Adenopathy (cervical) Results Lab Laboratory Tests 05/21/21 10:16: Glucometer 155H 05/21/21 12:54: Glucometer 146H 05/21/21 15:21: Glucometer 166H 05/21/21 20:05: Glucometer 226H 05/22/21 04:47: White Blood Count 9.0, Red Blood Count 3.29L, Hemoglobin 9.7L, Hematocrit 30L, Mean Corpuscular Volume 91, Mean Corpuscular Hemoglobin 30, Mean Corpuscular Hemoglobin Concent 33, Red Cell Distribution Width 13.5, Platelet Count 355, Mean Platelet Volume 10.4, Immature Granulocyte % (Auto) 1, Neutrophils (%) (Auto) 76H, Lymphocytes (%) (Auto) 15, Monocytes (%) (Auto) 7, Eosinophils (%) (Auto) 0, Basophils (%) (Auto) 0, Neutrophils # (Auto) 6.8, Lymphocytes # (Auto) 1.4, Monocytes # (Auto) 0.6, Eosinophils # (Auto) 0.0, Basophils # (Auto) 0.0, Immature Granulocyte # (Auto) 0.1, Sodium Level 138, Potassium Level 3.4L, Chlor cinthia Level 108H, Carbon Dioxide Level 17L, Anion Gap 13, Blood Urea Nitrogen 13, Creatinine 0.52L, Estimat Glomerular Filtration Rate 103, BUN/Creatinine Ratio 25, Glucose Level 175H, Calcium Level 7.8L, Corrected Calcium 8.8, Total Bilirubin 0.3, Aspartate Amino Transf (AST/SGOT) 31, Alanine Aminotransferase (ALT/SGPT) 15, Alkaline Phosphatase 87, Total Protein 5.4L, Albumin 2.7L 05/22/21 07:53: Glucometer 132H Microbiology 05/19/21 MRSA Screen - Final, Complete MRSA not isolated 05/18/21 Urine Culture - Final, Complete Escherichia coli Assessment/Plan Assessment/Plan Assessment/Plan S/p colostomy of transverse colon on 05/22 Rectal bleed Rectal ulcers Colitis Biliary dyskinesia anemia-stable Hypernatremia-improved Hypokalemia- 3.4 DVT prophylaxis Continue to monitor colostomy for viability and signs of bowel function. She is currently NPO Colonoscopy done 05/20 showed some colitis in the upper portion of the colon. In rectum she had one large ulceration and another small, pictures taken Continue antibiotics Continue to monitor labs and vitals Pt has SCDs on Case discussed with radiologist yesterday and he agrees there may be an erosion of the rectal wall. Pt may need a diverting colostomy, which would also help with her decubitus ulcers and clean up for pt Clinical Quality Measures DVT/VTE Risk/Contraindication: Contraindications-Pharm: Other *list below* Other: SHERMAN Delaney DO 05/22/21 1105: Subjective Time Seen by a Provider: 10:07 Subjective/Events-last exam Pt seen and examined, does not appear to be in any distress. Objective Exam General Appearance: Chronically ill Respiratory: Lungs Clear, Normal Breath Sounds, No Accessory Muscle Use, No Respiratory Distress Cardiovascular: Regular Rate, Rhythm, No Murmur Gastrointestinal: non tender, soft, other (colostomy pink and viable) Assessment/Plan Assessment/Plan Assessment/Plan S/p colostomy of transverse colon on 05/22 Anemia-stable Hypernatremia-improved Hypokalemia- 3.4 DVT prophylaxis Continue to monitor colostomy for viability and signs of bowel function. Can restart pre-surgical diet. Supervisory-Addendum Brief Verification & Attestation Participated in pt care: history, MDM, physical Personally performed: exam, history, MDM, supervision of care Care discussed with: Medical Student Procedures: n/a Verification and Attestation of Medical Student E/M Service A medical student performed and documented this service. I then reviewed and verified all information documented by the medical student and made modifications to such information, when appropriate. I personally performed a physical exam, medical decision making and then discussed any differences between the notes and made revisions as necessary to create one note. Sherman Chambers , 05/22/21 , 11:05 WILLIE NICHOLAS May 22, 2021 08:06 SHERMAN CHAMBERS DO May 22, 2021 11:05
[2021-05-22] MEDS: lisINopril 10 MG (PRINIVIL) TABLET PO SCH (09:16)
[2021-05-22] MEDS: PANTOPRAZOLE 40 MG (PROTONIX) VIAL IV SCH (09:16)
[2021-05-22] MEDS: CIPROFLOXACIN IV 400MG/200ML 200 ML IV SCH (09:22)
[2021-05-22] MEDS: SENNOSIDES 8.6 MG (SENOKOT) TAB PO SCH (09:23)
[2021-05-22] MEDS: DOCUSATE SODIUM 100 MG (COLACE) CAP PO SCH (09:24)
[2021-05-22] MEDS: metroNIDAZOLE 500MG/100ML IVPB 250 MG in EMPTY IV BAG (PVC) 1 EA IV SCH (10:09)
[2021-05-22] MEDS ORDERED: METR-145 PO (10:59)
[2021-05-22] MEDS ORDERED: CIPR-225 PO (10:59)
--- NOTE | 2021-05-22 11:01 | Discharge Inst-Skilled Nursing ---
Discharge Inst-Skilled NF Consult/Follow Up/Orders Follow Up Appt.: next retirement rounds Skilled NF Admit to: Via [facility] Certification (SNF) I certify that SNF services are required to be given on an inpatient basis because of the above named patient's need for long-term care on a continuing basis for the conditions(s) for which he/she was receiving inpatient hospital services prior to his/her transfer to the SNF. Fdc Facility Order: Nursing Services, Horse Stud Manager-Evaluate & Treat, Physical Therapy-Evaluate & Treat, Speech Language-Evaluate & Treat Oxygen Delivery Method: Room Air Discharge Diet: Other Diet (pureed with nectar thick liquids) Daily Activity as Tolerated: Yes Resuscitation Status: Full Code New & Resume Previous Orders Krystle Goodman May 22, 2021 11:00 KRYSTLE GOODMAN MD May 22, 2021 11:01
[2021-05-22] MEDS: NS W/KCL 20 MEQ/L 1,000 ML IV SCH (11:38)
--- NOTE | 2021-05-22 11:53 | Occupational Therapy Eval ---
OT Evaluation-General/PLF Medical Diagnosis Admission Date May 18, 2021 at 20:35 Medical Diagnosis: UTI/ Lower GI bleed Onset Date: May 18, 2021 Therapy Diagnosis Therapy Diagnosis: Dependent adls Precautions Precautions/Isolations: Fall Prevention, Standard Precautions Referral Physician: Sharon Referral Reason: Evaluation/Treatment Medical History Pertinent Medical History: CVA (R Pontine), HTN Additional Medical History HLD Current History [facility] staff report finding blood in brief. Pt with old CVA and expressive aphasia. Can answer yes/no questions with had nods. Pt reports having assistance with all adls except eating. She shook head "no" when asked about assistive devices and shook head "yes" when asked if she remains in the bed. Reviewed History: Yes Social History Home: Skilled Nursing ADL-Prior Level of Function SCALE: Activities may be completed with or without assistive devices. 4-Oyzlrvxvsc-gagstgv completes the activity by him/herself with no assistance from a helper. 5-Set-up or Clean-up Assistance-helper sets up or cleans up; patient completes activity. [place] assists only prior to or following the activity. 4-Supervision or Touching Assistance-helper provides verbal cues and/or touching/steadying and/or contact guard assistance as patient completes activity. Assistance may be provided throughout the activity or intermittently. 3-Partial/Moderate Assistance-helper does LESS THAN HALF the effort. [place] lifts, holds or supports trunk or limbs, but provides less than half the effort. 2-Substantial/Maximal Assistance-helper does MORE THAN HALF the effort. [place] lifts or holds trunk or limbs and provides more than half the effort. 5-Gnzeffdbk-gcnyum does ALL the effort. Patient does none of the effort to complete the activity. Or, the assistance of 2 or more helpers is required for the patient to complete the activity. If activity was not attempted, code reason: 7-Patient Refused. 9-Not Applicable-not attempted and the patient did not perform the activity be fore the current illness, exacerbation or injury. 10-Not Attempted due to Environmental Limitations-(lack of equipment, weather restraints, etc.). 88-Not Attempted due to Medical Conditions or Safety Concerns. Self Care: Dependent Functional Cognition: Unknown OT Current Status Subjective Pt does not respond verbally, only shakes head yes/no. Appearance Pt returned to supine in bed, all needs within reach, RN notified. Mental Status/Objective Patient Orientation: Person, Unable to Assess (expressive aphasia ) Attachments: [place] Catheter, IV, Oxygen, Telemetry Current Upper Extremity ROM R shoulder ~1/4 AROM. R elbow: WNL R hand: WNL with extra time to perform. LUE flaccid. ADL-Treatment Eating (QC): 3 (per clinical judgment) Lower Body Dressing (QC): 1 (per clinical judgment) On/Off Footwear (QC): 1 (per clinical judgment) Toileting Hygiene (QC): 1 (kingston catheter) Pt sidelying in bed at therapy arrival. Pt exhibits expressive aphasia, only responds to simple yes/no questions. She reports having assistance with all adls except eating. She was able to simulate ability to pronate/supinate and bring R hand to mouth without difficulty Dependent to sit EOB. Kyphotic posture. Pt lists R, no attempt to self correct. Max a to maintain sitting balance. Pt unable to follow cues to adjust posture for improved balance. Dependent x2 to return to supine. Education OT Patient Education: Correct positioning, Purpose of tx/functional activities, Safety issues, Transfer techniques Teaching Recipient: Patient Teaching Methods: Demonstration, Discussion Response to Teaching: Reinforcement Needed OT Stencil Machine Operator Goals Stencil Machine Operator Goals 1=Demonstrate adherence to instructed precautions during ADL tasks. 2=Patient will verbalize/demonstrate understanding of assistive devices/modifications for ADL. 3=Patient will improve strength/tolerance for activity to enable patient to perf orm ADL's. OT Education/Plan Problem List/Assessment Assessment: No Skilled OT Needs ID'd (Pt at baseline ) Discharge Recommendations Plan/Recommendations: Discontinue OT Therapy Discharge Recommendati: Other, See Comments (Return to [facility]) Treatment Plan/Plan of Care Treatment,Training & Education: Yes Patient would benefit from OT for education, treatment and training to promote independence in ADL's, mobility, safety and/or upper extremity function for ADL's. Plan of Care: ADL Retraining Treatment Duration: May 22, 2021 Frequency: 1 time per week Estimated Hrs Per Day: .25 hour per day Rehab Potential: Poor Time/GCodes Start Time: 11:19 Stop Time: 11:29 Total Time Billed (hr/min): 10 Billed Treatment Time 1 visit Kenia Obrien OT May 22, 2021 11:52
--- NOTE | 2021-05-22 12:35 | Physical Therapy Evaluation ---
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 3-Wbrsfbqgnq-egqjcog completes the activity by him/herself with no assistance from a helper. 5-Set-up or Clean-up Assistance-helper sets up or cleans up; patient completes activity. [place] assists only prior to or following the activity. 4-Supervision or Touching Assistance-helper provides verbal cues and/or touching/steadying and/or contact guard assistance as patient completes activity. Assistance may be provided throughout the activity or intermittently. 3-Partial/Moderate Assistance-helper does LESS THAN HALF the effort. [place] lifts, holds or supports trunk or limbs, but provides less than half the effort. 2-Substantial/Maximal Assistance-helper does MORE THAN HALF the effort. [place] lifts or holds trunk or limbs and provides more than half the effort. 2-Wzxfrdgfi-wqciin does ALL the effort. Patient does none of the effort to complete the activity. Or, the assistance of 2 or more helpers is required for the patient to complete the activity. If activity was not attempted, code reason: 7-Patient Refused. 9-Not Applicable-not attempted and the patient did not perform the activity before the current illness, exacerbation or injury. 10-Not Attempted due to Environmental Limitations-(lack of equipment, weather restraints, etc.). 88-Not Attempted due to Medical Conditions or Safety Concerns. Bed Mobility: 1 Transfers (B,C,W/C): 1 Indoor Mobility (Ambulation): Dependent PT Evaluation-Current Subjective Patient in bed pre tx, doesn't speak but can nod yes or shake head no. Patient has no complaints of pain. Pt/Family Goals none stated Objective Patient Orientation: Person, Unable to Assess Attachments: [place] Catheter, IV ROM/Strength ROM Lower Extremities WNL Strength Lower Extremities patient will not follow directions for testing on her right side (the strong side) Sensory Hearing: Functional Transfers Roll Left to Right (QC): 1 Sit to Lying (QC): 1 Lying to Sitting/Side of Bed(Q: 1 Patient sits to the side of the bed with assist of 2 (dependent), she is also dependent for sitting balance, she sits for a few minutes and then is layed down. Attempted to get patient to do LE exercise on the right leg but she wouldn't, she also would not assist with sitting balance. Balance Sitting Static: Poor Sitting Dynamic: Poor Assessment/Needs Patient in bed post tx with nurse call, phone, tray, all needs met. Patient is dependent for all mobility, she indicates through questioning that she is in bed all the time at the intermediate. Patient seems to be at baseline, will DC from PT services at this time. Rehab Potential: Poor PT Plan Problem List Problem List: Activity Tolerance, Functional Strength, Safety, Balance, Gait, Transfer, Bed Mobility, ROM Treatment/Plan Treatment Plan: Discontinue PT Treatment Duration: May 22, 2021 Frequency: Safety Risks/Education Patient Education: Correct Positioning, Safety Issues Teaching Recipient: Patient Teaching Methods: Demonstration, Discussion Response to Teaching: Unable to Comprehend Discharge Recommendations Plan DC Time/GCodes Time In: 1118 Time Out: 1129 Total Billed Treatment Time: 11 Total Billed Treatment 1 visit AGA AHUMADA PT May 22, 2021 12:35
--- NOTE | 2021-05-22 13:17 | Anesthesia-General Post-Op ---
General Patient Condition Mental Status/LOC: Same as Preop Cardiovascular: Satisfactory Nausea/Vomiting: Absent Respiratory: Satisfactory Pain: Controlled Complications: Absent Post Op Complications Complications None Follow Up Care/Instructions Patient Instructions None needed. Anesthesia/Patient Condition Patient Condition Patient is doing well, having some abdominal pain which is to be expected, stable vital signs, no apparent adverse anesthesia problems. JACQUELIN ALVARADO 18, 2022 13:17
[2021-05-22 14:37] VITALS: BP 127/65
--- NOTE | 2021-05-22 15:04 | Discharge Summary ---
LORETTA TUCKER 05/22/21 1504: Diagnosis/Chief Complaint Date of Admission May 18, 2021 at 20:35 Date of Discharge May 22, 2021 at 14:43 Discharge Date: May 22, 2021 Admission Diagnosis Admission Diagnosis Rectal bleed UTI Discharge Diagnosis Rectal bleed UTI Discharge Summary Hospital Course Was the Problem List Reviewed?: Yes Hospital Course Audrey is a 65yo female w/PMH of IDDM, HTN, HLD, Right Pontine CVA who presented to ER on 05/18 due to melena. She was found to be mildly anemic with a Hgb of 10.5. CT abdomen revealed probable cystitis as well as possible colitis. Urinalysis supported diagnosis of cystitis so she was started on IV abx and scheduled for colonoscopy to evaluate for GI bleed. Colonoscopy on 05/20 revealed multiple rectal ulcers and a transverse loop colostomy was performed 05/21 without any complications during or following the surgery. Hgb was stable throughout the hospital stay and began improving today. Patient is medically stable for discharge. Labs Laboratory Tests 05/20/21 05:15: Red Blood Count 3.41L, Hemoglobin 10.1L, Hematocrit 31L, Potassium Level 3.2L, Chloride Level 112H, Carbon Dioxide Level 19L, Blood Urea Nitrogen 23H, C reatinine 0.52L, Glucose Level 109H, Calcium Level 8.0L, Total Protein 5.6L, Albumin 2.8L 05/20/21 10:59: Glucometer 118H 05/20/21 15:18: 05/20/21 20:08: 05/21/21 05:14: Glucometer 136H 05/21/21 05:15: Red Blood Count 3.27L, Hemoglobin 9.5L, Hematocrit 30L, Potassium Level 3.5L, Chloride Level 111H, Carbon Dioxide Level 17L, Creatinine 0.53L, Glucose Level 143H, Calcium Level 7.7L, Total Protein 5.4L, Albumin 2.7L 05/21/21 10:16: Glucometer 155H 05/21/21 12:54: Glucometer 146H 05/21/21 15:21: Glucometer 166H 05/21/21 20:05: Glucometer 226H 05/22/21 04:47: Red Blood Count 3.29L, Hemoglobin 9.7L, Hematocrit 30L, Neutrophils (%) (Auto) 76H, Potassium Level 3.4L, Chloride Level 108H, Carbon Dioxide Level 17L, Cr eatinine 0.52L, Glucose Level 175H, Calcium Level 7.8L, Total Protein 5.4L, Albumin 2.7L 05/22/21 07:53: Glucometer 132H 05/22/21 10:25: Glucometer 206H Laboratory Tests 05/21/21 20:05: Glucometer 226H 05/22/21 04:47: White Blood Count 9.0, Red Blood Count 3.29L, Hemoglobin 9.7L, Hematocrit 30L, Mean Corpuscular Volume 91, Mean Corpuscular Hemoglobin 30, Mean Corpuscular Hemoglobin Concent 33, Red Cell Distribution Width 13.5, Platelet Count 355, Mean Platelet Volume 10.4, Immature Granulocyte % (Auto) 1, Neutrophils (%) (Auto) 76H, Lymphocytes (%) (Auto) 15, Monocytes (%) (Auto) 7, Eosinophils (%) (Auto) 0, Basophils (%) (Auto) 0, Neutrophils # (Auto) 6.8, Lymphocytes # (Auto) 1.4, Monocytes # (Auto) 0.6, Eosinophils # (Auto) 0.0, Basophils # (Auto) 0.0, Immature Granulocyte # (Auto) 0.1, Sodium Level 138, Potassium Level 3.4L, Chloride Level 108H, Carbon Dioxide Level 17L, Anion Gap 13, Blood Urea Nitrogen 13, Creatinine 0.52L, Estimat Glomerular Filtration Rate 103, BUN/Creatinine Ratio 25, Glucose Level 175H, Calcium Level 7.8L, Corrected Calcium 8.8, Total Bilirubin 0.3, Aspartate Amino Transf (AST/SGOT) 31, Alanine Aminotransferase (ALT/SGPT) 15, Alkaline Phosphatase 87, Total Protein 5.4L, Albumin 2.7L 05/22/21 07:53: Glucometer 132H 05/22/21 10:25: Glucometer 206H Microbiology 05/19/21 MRSA Screen - Final, Complete MRSA not isolated 05/18/21 Urine Culture - Final, Complete Escherichia coli Active Scripts Active Metronidazole 500 Mg Tablet 500 Mg PO TID 5 Days Cipro (Ciprofloxacin HCl) 500 Mg Tablet 500 Mg PO BID 5 Days Reported Ketoconazole 120 Ml Shampoo 1 Applic TP MO,WE,FR Tylenol Arthritis (Acetaminophen) 650 Mg Tablet.er 650 Mg PO Q8H PRN Lantus (Insulin Glargine,Hum.rec.anlog) 100 Unit/1 Ml Vial 35 Unit SQ HS Novolog (Insulin Aspart) 100 Unit/1 Ml Susp 5 Unit SQ AC Lisinopril 10 Mg Tablet 10 Mg PO DAILY Atorvastatin Calcium 80 Mg Tablet 80 Mg PO DAILY Farxiga (Dapagliflozin Propanediol) 10 Mg Tablet 10 Mg PO DAILY Plavix (Clopidogrel Bisulfate) 75 Mg Tablet 75 Mg PO DAILY Vitamin C (Ascorbate Calcium) 500 Mg Tablet 500 Mg PO DAILY Aspirin 81 Mg Tab.chew 81 Mg PO DAILY Vitamin D3 (Cholecalciferol (Vitamin D3)) 25 Mcg Capsule 25 Mcg PO DAILY Procedures None. Discharge Physical Examination Allergies: Coded Allergies: Penicillins (Verified Allergy, Unknown, 05/13/21) codeine (Verified Allergy, Unknown, 05/13/21) erythromycin base (Verified Allergy, Unknown, 05/13/21) lidocaine (Verified Allergy, Unknown, 05/13/21) tetanus toxoid, adsorbed (Verified Allergy, Unknown, 05/13/21) Vitals & I&Os Vital Signs Date Time Temp Pulse Resp B/P (MAP) Pulse Ox O2 Delivery O2 Flow Rate FiO2 05/22/21 14:37 85 16 127/65 97 05/22/21 14:00 Room Air 05/22/21 11:15 36.8 05/21/21 13:10 2 05/21/21 03:26 21 General Appearance: Alert, Oriented X3, No Acute Distress HEENT: PERRLA, EOMI Cardiovascular: Regular Rate Abdominal: Normal Bowel Sounds, Soft Extremities: Normal Pulses Psych/Mental Status: Mental Status NL Discharge Home Medications Reviewed and agree with Discharge Medication list on patient's Discharge Instruction sheet Instructions to Patient/Family Please see electronic discharge instructions given to patient. Clinical Quality Measures DVT/VTE Risk/Contraindication: Contraindications-Pharm: Other *list below* Other: TOMY Dowling MD 05/23/21 7053: Discharge Summary Discharge Physical Examination Allergies: Coded Allergies: Penicillins (Verified Allergy, Unknown, 05/13/21) codeine (Verified Allergy, Unknown, 05/13/21) erythromycin base (Verified Allergy, Unknown, 05/13/21) lidocaine (Verified Allergy, Unknown, 05/13/21) tetanus toxoid, adsorbed (Verified Allergy, Unknown, 05/13/21) Supervisory-Addendum Brief Verification & Attestation Participated in pt care: history, MDM, physical Personally performed: exam, history, MDM, supervision of care Care discussed with: Medical Student Procedures: n/a Results interpretation: Verified all documentation A medical student performed and documented this service in my presence. I reviewed and verified all information documented by the medical student and made modifications to such information, when appropriate. I personally performed the physical exam and medical decision making. LORETTA TUCKER May 22, 2021 15:04 TOMY GOODMAN MD May 23, 2021 22:33
== END 2021-05-22 14:43 | DRG 329 ==
LOC: EDUNIT# 17:44 → ER 17:45 → CSD 20:35
PROVIDERS: ADMIT Internal Medicine; ATTEND Internal Medicine
PROC: 0DBP8ZX Excision of Rectum, Via Natural or Artificial Opening Endoscopic, Diagnostic (ICD-10-PCS; principal; 2021-05-20 17:37)
PROC: 0D1L4Z4 Bypass Transverse Colon to Cutaneous, Percutaneous Endoscopic Approach (ICD-10-PCS; 2021-05-21)
DX: K92.1 Melena (principal); U07.1 COVID-19; E87.0 Hyperosmolality and hypernatremia; K62.6 Ulcer of anus and rectum; N30.90 Cystitis, unspecified without hematuria; I10 Essential (primary) hypertension; E11.9 Type 2 diabetes mellitus without complications; I65.29 Occlusion and stenosis of unspecified carotid artery; Z86.73 Personal history of transient ischemic attack (TIA), and cerebral infarction without residual deficits; Z79.82 Long term (current) use of aspirin; Z79.4 Long term (current) use of insulin; Z79.899 Other long term (current) drug therapy; E87.6 Hypokalemia; E78.00 Pure hypercholesterolemia, unspecified; D64.9 Anemia, unspecified; L89.312 Pressure ulcer of right buttock, stage 2; K82.8 Other specified diseases of gallbladder; K52.9 Noninfective gastroenteritis and colitis, unspecified; K64.8 Other hemorrhoids
CPT/HCPCS: 36415; 74177; 80053; 81000; 82947; 85025; 85610; 85730; 86850; 86900; 86901; 86922; 87077; 87081; 87088; 87186; 87636; 94760

== ENCOUNTER 2021-06-03 22:42 | Inpatient (IN) | payer MEDICARE ==
[~2021-06-03] VITALS: Ht 165 cm; Wt 58.8 kg
[~2021-06-03 22:42] MED LIST: ACET-2650 PO; ASCO-262 PO; ASPI-999 PO; ATOR80TA76 PO; CHOL10007 PO; CIPR-225 PO; CLOP75TA69 PO; DAPA10TA PO; INSU100V16 SQ; INSU100V6 SQ; KETO120S13 TP; LISI10TA25 PO; METR-145 PO
[2021-06-03] MEDS ORDERED: NS IV 1000 ML 1,000 ML IV SCH (22:45)
[2021-06-03 23:00] LABS: BASOPHILS % (AUTO) 0 % (0-10); EOSINOPHILS # (AUTO) 0.2 10^3/uL (0.0-0.3); EOSINOPHILS % (AUTO) 4 % (0-10); HEMATOCRIT 37 % (35-52); HEMOGLOBIN 11.5 g/dL (11.5-16.0); LYMPHOCYTES # (AUTO) 1.1 10^3/uL (1.0-4.0); LYMPHOCYTES % (AUTO) 17 % (12-44); MEAN CORPUSCULAR HEMOGLOBIN 29 pg (25-34); MEAN CORPUSCULAR HGB CONC 31 g/dL (32-36); MEAN CORPUSCULAR VOLUME 92 fL (80-99); MEAN PLATELET VOLUME 10.3 fL (9.0-12.2); MONOCYTES # (AUTO) 0.5 10^3/uL (0.0-1.0); MONOCYTES % (AUTO) 7 % (0-12); NEUTROPHILS # (AUTO) 4.5 10^3/uL (1.8-7.8); NEUTROPHILS % (AUTO) 70 % (42-75); PLATELET COUNT 446 10^3/uL (130-400); WHITE BLOOD COUNT 6.4 10^3/uL (4.3-11.0)
[2021-06-03] MEDS ORDERED: OCTREOTIDE INJECTION 50 MCG in NS (IVPB) 50 ML IV ONE (23:00)
[2021-06-03] MEDS ORDERED: PANTOPRAZOLE 40 MG (PROTONIX) VIAL IV ONE (23:00)
[2021-06-03] MEDS ORDERED: NS IV 500 ML 500 ML IV SCH (23:00)
[2021-06-03] MEDS ORDERED: PANTOPRAZOLE INJECTION 200 MG in NS (IVPB) 100 ML IV SCH (23:00)
[2021-06-03] MEDS ORDERED: OCTREOTIDE INJECTION 500 MCG in NS (IVPB) 99 ML IV SCH (23:00)
[2021-06-03 23:13] LABS: ALBUMIN 3.3 GM/DL (3.2-4.5)
[2021-06-03 23:14] LABS: CALCIUM 8.7 MG/DL (8.5-10.1)
[2021-06-03 23:16] LABS: TOTAL PROTEIN 6.8 GM/DL (6.4-8.2)
[2021-06-03 23:17] LABS: BILIRUBIN,TOTAL 0.4 MG/DL (0.1-1.0)
[2021-06-03 23:19] LABS: CREATININE SERUM 0.59 MG/DL (0.60-1.30)
[2021-06-03 23:25] LABS: INR 1.3 (0.8-1.4); PROTHROMBIN TIME PATIENT 16.2 SEC (12.2-14.7)
[2021-06-03 23:46] LABS: POTASSIUM 2.4 MMOL/L (3.6-5.0)
[2021-06-04] VITALS (9 sets, daily range): BP systolic 81–149; BP diastolic 52–86
[2021-06-04] MEDS ORDERED: D5 1/2 NS W/KCL 40 MEQ/L 1,000 ML IV SCH (00:30)
[2021-06-04] MEDS ORDERED: NS IV 1000 ML 1,000 ML ONE ×2 (00:31→16:58)
[2021-06-04 01:14] LABS: HEMATOCRIT 28 % (35-52); HEMOGLOBIN 8.7 g/dL (11.5-16.0); MEAN CORPUSCULAR HEMOGLOBIN 29 pg (25-34); MEAN CORPUSCULAR HGB CONC 31 g/dL (32-36); MEAN CORPUSCULAR VOLUME 95 fL (80-99); PLATELET COUNT 352 10^3/uL (130-400); WHITE BLOOD COUNT 6.3 10^3/uL (4.3-11.0)
--- NOTE | 2021-06-04 02:12 | ED GI ---
General Chief Complaint: Abdominal/GI Problems Stated Complaint: ACUTE BLEEDING FROM COLOSTOMY;ACUTE BLOOD LOSS; Nursing Triage Note: colostomy placed approx. 2 weeks ago, bright red blood from colostomy tonight. Source of Information: EMS, [facility] Records, Old Records (ALL PMH IS FROM OLD RECORDS) Exam Limitations: Other (PT IS NON-VERBAL FROM PREVIOUS STROKE. ) History of Present Illness Date Seen by Provider: Jun 03, 2021 Time Seen by Provider: 22:41 Initial Comments PT ARRIVES VIA EMS FROM [facility] PT HAD A DIVERTING COLOSTOMY PLACED ON 05/18/21 FOR A RECTAL ULCERATION WITH PERFORATION, BY DR. LEMUS. PT BEGAN HAVING PROFUSE BLEEDING FROM THE COLOSTOMY SITE TONIGHT--EMS REPORT THEY EMPTIED ONE OSTOMY BAG PRIOR TO ARRIVAL, CONTAINING APPROXIMATELY 1000 ML OF BRIGHT RED BLOOD. 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 PT WAS THEN ADMITTED TO [facility] ON DISMISSAL FROM . PT TESTED + FOR COVID-19 ON 05/07/21--NO TREATMENT AND PT IS UNVACCINATED. PT'S FIRST VISIT HERE WAS 05/13/21 FOR AN EPISODE OF UNRESPONSIVENESS, COMPLETE WORKUP WAS DONE AND PT RECOVERED BACK TO BASELINE AND WAS DISMISSED BACK TO [facility] SHE PRESENTED HERE ON 05/18/21 WITH RECTAL BLEEDING AND WAS FOUND TO HAVE A RECTAL ULCER WITH PERFORATION AND HAD SUBSEQUENT DIVERTING COLOSTOMY SHE WAS TRANSFERRED BACK TO [facility] ON 05/22/21. PT IS UNABLE TO PROVIDE ANY INFORMATION AT THIS TIME. PCP: DR. KHAN IS DETENTION PHYSICIAN. Allergies and Home Medications Allergies Coded Allergies: Penicillins (Verified Allergy, Unknown, 05/13/21) codeine (Verified Allergy, Unknown, 05/13/21) erythromycin base (Verified Allergy, Unknown, 05/13/21) lidocaine (Verified Allergy, Unknown, 05/13/21) tetanus toxoid, adsorbed (Verified Allergy, Unknown, 05/13/21) Patient Home Medication List Home Medication List Reviewed: Yes Acetaminophen (Tylenol Arthritis) 650 Mg Tablet.er, 650 MG PO Q8H PRN for PAIN- MILD (1-4), (Reported) Entered as Reported by: GIOVANNA AGUIAR on 05/19/21 114 Ascorbate Calcium (Vitamin C) 500 Mg Tablet, 500 MG PO DAILY, (Reported) Entered as Reported by: GIOVANNA AGUIAR on 05/19/21 114 Aspirin (Aspirin) 81 Mg Tab.chew, 81 MG PO DAILY, (Reported) Entered as Reported by: GIOVANNA AGUIAR on 05/19/21 114 Atorvastatin Calcium (Atorvastatin Calcium) 80 Mg Tablet, 80 MG PO DAILY, (Reported) Entered as Reported by: GIOVANNA AGUIAR on 05/19/21 114 Cholecalciferol (Vitamin D3) (Vitamin D3) 25 Mcg Capsule, 25 MCG PO DAILY, (Reported) Entered as Reported by: GIOVANNA AGUIAR on 05/19/21 114 Ciprofloxacin HCl (Cipro) 500 Mg Tablet, 500 MG PO BID Prescribed by: TOMY GOODMAN on 05/22/21 105 Clopidogrel Bisulfate (Plavix) 75 Mg Tablet, 75 MG PO DAILY, (Reported) Entered as Reported by: GIOVANNA AGUIAR on 05/19/21 114 Dapagliflozin Propanediol (Farxiga) 10 Mg Tablet, 10 MG PO DAILY, (Reported) Entered as Reported by: GIOVANNA AGUIAR on 05/19/21 114 Insulin Aspart (Novolog) 100 Unit/1 Ml Susp, 5 UNIT SQ AC, (Reported) Entered as Reported by: GIOVANNA AGUIAR on 05/19/21 114 Insulin Glargine,Hum.rec.anlog (Lantus) 100 Unit/1 Ml Vial, 35 UNIT SQ HS, (Reported) Entered as Reported by: GIOVANNA AGUIAR on 05/19/21 114 Ketoconazole (Ketoconazole) 120 Ml Shampoo, 1 APPLIC TP MO,WE,FR, (Reported) Entered as Reported by: GIOVANNA AGUIAR on 05/19/21 114 Lisinopril (Lisinopril) 10 Mg Tablet, 10 MG PO DAILY, (Reported) Entered as Reported by: GIOVANNA AGUIAR on 05/19/21 114 Metronidazole (Metronidazole) 500 Mg Tablet, 500 MG PO TID Prescribed by: TOMY GOODMAN on 05/22/21 1059 Review of Systems Review of Systems Constitutional: other (UNABLE TO OBTAIN ANY INFORMATION FROM PATIENT. ) Gastrointestinal: See HPI Genitourinary: Other (INDWELLING YEBOAH) Past Khndhbr-Ndcnlg-Qaalum Hx Patient Social History Tobacco Use?: No Substance use?: No Alcohol Use?: No Pt feels they are or have been: No Past Medical History Surgery/Hospitalization HX: RECENT STROKE L SIDE FLACCID, COVID MAY 2021, colostomy 05/26 Surgeries: Yes Abdominal, Bowel Surgery Respiratory: Yes (COVID-19 05/07/21--NO TREATMENT ) Cardiac: Yes (CAROTID DISEAASE) High Cholesterol, Hypertension, Peripheral Vascular Neurological: Yes (CVA 04/06/21 WITH EXPRESSIVE APHASIA AND LEFT SIDE FLACCID PARALYSIS. 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 LEMUS FOR RECTAL ULCER WITH PERFORATION WITH RECTAL BLEEDING. Physical Exam Vital Signs Vital Signs - First Documented 06/03/21 22:42 Temp 36.2 Pulse 103 Resp 21 B/P (MAP) 117/74 (88) Pulse Ox 98 O2 Delivery Room Air Capillary Refill : Less Than 3 Seconds Height/Weight/BMI Height: '" Weight: lbs. oz. kg; 28.00 BMI Method: General Appearance: other (LETHARGIC. DOES MAKE EYE CONTACT, BUT IS NON-VERBAL WHICH IS HER NORMAL BASELINE. ) HEENT: pale conjunctivae (R), pale conjunctivae (L) Neck: normal inspection Respiratory: normal breath sounds, no respiratory distress, no accessory muscle use Cardiovascular: regular rate, rhythm, no murmur Gastrointestinal: soft, other (COLOSTOMY BAG IN PLACE IN LEFT UPPER ABDOMEN WITH LARGE AMOUNT OF BRIGHT RED BLOOD. ) Extremities: normal capillary refill Neurologic/Psychiatric: alert (AWAKE BUT LETHARGIC. ), other (LEFT SIDE F LACCID; PT DOES SQUEEZE WITH RIGHT HAND, BUT NOT REALLY FOLLOWING COMMANDS AT THIS TIME-PT WITH SOME LETHARGY AND GENERALIZED WEAKNESS. IS DIFFICULT TO DETERMINE IF PT IS ORIENTED OR IF SHE UNDERSTANDS THE SITUATION AT THIS TIME. PT IS NOT ATTEMPTING TO NOD OR SHAKE HER HEAD WHEN ASKING HER QUESTIONS. ) Skin: warm/dry, pallor, other (DECUBITUS ULCERS ON BUTTOCKS/SACRUM/COCCYX AREA) Progress/Results/Core Measures Results/Orders Lab Results Laboratory Tests Test 06/03/21 22:45 Range/Units White Blood Count 6.4 4.3-11.0 10^3/uL Red Blood Count 3.99 3.80-5.11 10^6/uL Hemoglobin 11.5 11.5-16.0 g/dL Hematocrit 37 35-52 % Mean Corpuscular Volume 92 80-99 fL Mean Corpuscular Hemoglobin 29 25-34 pg Mean Corpuscular Hemoglobin Concent 31 L 32-36 g/dL Red Cell Distribution Width 16.6 H 10.0-14.5 % Platelet Count 446 H 130-400 10^3/uL Mean Platelet Volume 10.3 9.0-12.2 fL Immature Granulocyte % (Auto) 1 % Neutrophils (%) (Auto) 70 42-75 % Lymphocytes (%) (Auto) 17 12-44 % Monocytes (%) (Auto) 7 0-12 % Eosinophils (%) (Auto) 4 0-10 % Basophils (%) (Auto) 0 0-10 % Neutrophils # (Auto) 4.5 1.8-7.8 10^3/uL Lymphocytes # (Auto) 1.1 1.0-4.0 10^3/uL Monocytes # (Auto) 0.5 0.0-1.0 10^3/uL Eosinophils # (Auto) 0.2 0.0-0.3 10^3/uL Basophils # (Auto) 0.0 0.0-0.1 10^3/uL Immature Granulocyte # (Auto) 0.1 0.0-0.1 10^3/uL Prothrombin Time 16.2 H 12.2-14.7 SEC INR Comment 1.3 0.8-1.4 Activated Partial Thromboplast Time 26 24-35 SEC Sodium Level 159 H 135-145 MMOL/L Potassium Level 2.4 *L 3.6-5.0 MMOL/L Chloride Level 116 H 98-107 MMOL/L Carbon Dioxide Level 27 21-32 MMOL/L Anion Gap 16 H 5-14 MMOL/L Blood Urea Nitrogen 20 H 7-18 MG/DL Creatinine 0.59 L 0.60-1.30 MG/DL Estimat Glomerular Filtration Rate 100 BUN/Creatinine Ratio 34 Glucose Level 148 H 70-105 MG/DL Calcium Level 8.7 8.5-10.1 MG/DL Corrected Calcium 9.3 8.5-10.1 MG/DL Total Bilirubin 0.4 0.1-1.0 MG/DL Aspartate Amino Transf (AST/SGOT) 12 5-34 U/L Alanine Aminotransferase (ALT/SGPT) 10 0-55 U/L Alkaline Phosphatase 86 40-136 U/L Total Protein 6.8 6.4-8.2 GM/DL Albumin 3.3 3.2-4.5 GM/DL My Orders Orders - ANDIE DARLING DO Ed Iv/Invasive Line Start (06/03/21 22:45) Monitor-Rhythm Ecg Trace Only (06/03/21 22:45) Cbc With Automated Diff (06/03/21 22:45) Comprehensive Metabolic Panel (06/03/21:45) Protime With Inr (06/03/21:45) Partial Thromboplastin Time (06/03/21 22:45) Red Cells Leukocytes Reduced (06/03/21 22:45) Ed Iv/Invasive Line Start (06/03/21 22:45) Ns Iv 1000 Ml (Sodium Chloride 0.9%) (06/03/21 22:45) Type And Screen (06/03/21 22:45) Pantoprazole Injection (Protonix Injecti (06/03/21 23:00) Octreotide Injection (Sandostatin Inje (06/03/21 23:00) Ns (Ivpb) (Sodium C... W/Octreotide Inj (06/03/21 23:00) Ns (Ivpb) (Sodium C... W/Pantoprazole In (06/03/21 23:00) Fresh Frozen Plasma (06/03/21:52) Ns Iv 500 Ml (Sodium Chloride 0.9%) (06/03/21 23:00) Platelet Pheresis Lr (06/03/21 22:52) Ekg Tracing (06/03/21 22:55) O2 (06/03/21 22:55) Ct Abdomen/Pelvis Wo (06/03/21 22:55) Red Cells Leukocytes Reduced (06/03/21 22:45) Medications Given in ED Current Medications Medications Dose Ordered Sig/Chano Route Start Time Stop Time Status Last Admin Dose Admin Octreotide Acetate 50 mcg/ Sodium Chloride 51 ml @ 204 mls/hr ONCE ONCE IV 06/03/21 23:00 06/03/21 23:14 DC 06/03/21 23:14 204 MLS/HR Pantoprazole 80 mg ONCE ONCE IV 06/03/21 23:00 06/03/21 23:01 DC 06/03/21 23:13 80 MG Vital Signs/I&O 06/03/21 22:42 Temp 36.2 Pulse 103 Resp 21 B/P (MAP) 117/74 (88) Pulse Ox 98 O2 Delivery Room Air 06/04/21 00:00 Intake Total 51 ml Output Total 425 ml Balance -374 ml Blood Pressure Mean: 107 Progress Progress Note : Progress Note PT CONTINUED TO HAVE ACTIVE BRIGHT RED BLEEDING INTO OSTOMY BAG, TO THE POINT THAT BLOOD WAS LEAKING OUT FROM UNDER THE COLOSTOMY BAG. BAG WAS EVENTUALLY REMOVED, AND LARGE AMOUNT OF BLOOD CLOTS WERE NOTED ALL AROUND THE STOMA, WITH ACTIVE BLEEDING COMING FROM THE PERIPHERAL ASPECTS OF THE STOMA, BUT UNABLE TO IDENTIFY THE EXACT SITE OF BLEEDING. . THE LUMEN OF THE STOMA HAS SMALL AMOUNTS OF NORMAL APPEARING, SOFT SEMI-FORMED STOOL AND PT IS PASSING GAS THROUGH THE STOMA. THERE DOES NOT APPEAR TO BE BLOOD COMING DIRECTLY FROM THE LUMEN OF THE BOWEL OR IN THE STOOL ITSELF. PT HAD IN EXCESS OF 1000 ML OF BRIGHT RED BLOOD FROM THE STOMA SITE DURING ER STAY, FOR A TOTAL OF > 2000 ML OF BRIGHT RED BLOOD. BLEEDING CONTINUES AT TIME OF ADMIT TO THE FLOOR PT BECAME HYPOTENSIVE WITH BLOOD PRESSURES IN THE 70'S SYSTOLIC PT WAS GIVEN IV FLUIDS, FOLLOWED BY 2 UNITS OF PRBC'S, 2 UNITS OF PLATELETS AND 1 UNIT OF FFP. PT WAS GIVEN PROTONIX BOLUS AND PLACED ON A PROTONIX DRIP PT WAS ALSO GIVEN OCTREOTIDE BOLUS AND PLACED ON OCTREOTIDE DROP. SIGNIFICANT DROP IN HGB FROM ARRIVAL BP > 100 SYSTOLIC AT TIME OF ADMIT TO THE FLOOR. Initial ECG Impression Date: Jun 03, 2021 Initial ECG Impression Time: 23:17 Initial ECG Rate: 101 Initial ECG Rhythm: S.Tach (ST DEPRESSION ANTERIOR/LATERAL/INFERIORLY) Diagnostic Imaging Comments CT ABDOMEN/PELVIS--PER [facility] VIA FAX AT 0027: -CECUM AND ASCENDING COLON PRIOR TO THE TRANSVERSE COLOSTOMY IS SIGNIFICANTLY DISTENDED WITH STOOL. -POSSIBLE PNEUMATOSIS IN THE CECUM. THERE MAY BE MILD WALL THICKENING BUT NO PARACOLIC INFLAMMATION -DIFFICULT TO DETERMINE IF THERE IS RIGHT COLON COLITIS WITH PNEUMATOSIS OR WHETHER THIS IS DISTENDED COLON WITH RELATIVE OBSTRUCTION AND BACTERIAL OVERGROWTH. -NO DEFINITE ETIOLOGY OF STOMAL HEMORRHAGE. Reviewed: Reviewed by Me Critical Care Note Critical Care Total Time (minutes) >90 MINUTES Departure Communication (Admissions) Family Conversation 0133--SPOKE WITH PT'S DAUGHTER, IVET, AND UPDATED HER ON PT'S CONDITION. 225--SPOKE WITH DR. KRAMER, SURGEON RAILROAD SIGNAL OPERATOR. HE ADVISES TO GIVE PT PLATELETS. NO ADDITIONAL RECOMMENDATIONS AT THIS TIME 001--SPOKE WITH DR. KRAMER AGAIN AND UPDATED HIM ON PT'S CONDITION. WILL ADMIT TO ICU. NO ADDITIONAL RECOMMENDATIONS AT THIS TIME. 003--REPORT TO E-ICU, SHE ADVISES TO OBTAIN A CT ANGIOGRAM OF THE ABDOMEN OR A GI BLEEDING STUDY TO TRY TO DETERMINE SITE OF BLEEDING 012--CONTACTED DR. LEMUS, PT'S SURGEON. ADVISES TO APPLY PRESSURE TO THE AREA. NO ADDITIONAL RECOMMENDATIONS AT THIS TIME. HE ADVISES TO ADMIT TO HOSPITALIST. 0125--SPOKE WITH DR. CORDERO, HOSPITALIST, ACCEPTS PT FOR ADMIT. NO ADDITIONAL RECOMMENDATIONS AT THIS TIME. Impression Primary Impression: ACUTE BLEEDING FROM COLOSTOMY Additional Impressions: Hemorrhagic shock Acute blood loss anemia PLAVIX AND ASPIRIN THERAPY FOR RECENT CVA Hx of essential hypertension DECUBITUS ULCERS S/P CVA WITH EXPRESSIVE APHASIA AND LEFT SIDED PARALYSIS IDDM (insulin dependent diabetes mellitus) Disposition: ADMITTED INPATIENT Condition: Critical Admissions Decision to Admit Reason: Admit from ER (General) Decision to Admit/Date: Jun 04, 2021 Time/Decision to Admit Time: 00:15 Departure-Patient Inst. Referrals: LUZMA KHAN MD (PCP) Primary Care Physician ANDIE DARLING DO Jun 04, 2021 02:12
[2021-06-04] MEDS ORDERED: fentaNYL INJ 100 MCG/2 ML AMP IV PRN (02:15)
[2021-06-04] MEDS ORDERED: ONDANSETRON 4 MG/2 ML (SDV) Z0FRAN IV PRN (02:15)
[2021-06-04] MEDS: D5 1/2 NS W/KCL 40 MEQ/L 1,000 ML IV SCH ×3 (02:21→21:18)
[2021-06-04] MEDS: PANTOPRAZOLE INJECTION 200 MG in NS (IVPB) 100 ML IV SCH ×2 (02:21→21:20)
[2021-06-04] MEDS: OCTREOTIDE INJECTION 500 MCG in NS (IVPB) 99 ML IV SCH ×3 (02:22→21:20)
[2021-06-04 02:50] LABS: HEMOGLOBIN 10.5 g/dL (11.5-16.0)
--- NOTE | 2021-06-04 03:00 | Tele-ICU Progress Note ---
Progress Note 65F with remote CVA residual L hemiparesis, aphasia on plavix and aspirin, rectal ulceration s/p diverting colostoy 05/18/21 admitted with acute bleed. Presented with grossly bloody ostomy output. - EMS emptied 1L bloody - 425 cc on arrival to ED. - total 1200 cc in ER - additional 100 cc in the 30 min since ICU arrival. - totalling 2.4L Per ED MD and DYNAMOMETER TUNER appears to be coming from the superior portion of the ostomy, but could not visualize the exact source. Initial Hg 11, repeat 8.4. Given 2uPRBC, 2 of platlets and 1 of FFP with repeat labs just sent. BP down to 70s in ED, now 143/72. If becomes higher, will treat. Goal should be in the 90-120 range to not promote bleeding (repeat cycle 127/82) - continue transfusions as indicated by labs and HDs - maintain Hg>8 while actively bleeding - surgery consulted - bleeding scan ordered - K replacement ongoing - octreotide, protonix started empirically, although this appears more likely a cutaneous or subcutaneous artery - coagulopathy secondary to ASA, plavix. No reversal agents. 1u platlets already given. Focused Exam Height, Weight, BMI Height: '" Weight: lbs. oz. kg; 28.00 BMI Method: ANISH JACOBSON MD Jun 04, 2021 03:00
[2021-06-04 05:13] LABS: BASOPHILS % (AUTO) 0 % (0-10); EOSINOPHILS # (AUTO) 0.1 10^3/uL (0.0-0.3); EOSINOPHILS % (AUTO) 1 % (0-10); HEMATOCRIT 25 % (35-52); HEMOGLOBIN 8.1 g/dL (11.5-16.0); LYMPHOCYTES % (AUTO) 14 % (12-44); MEAN CORPUSCULAR HEMOGLOBIN 29 pg (25-34); MEAN CORPUSCULAR HGB CONC 32 g/dL (32-36); MEAN CORPUSCULAR VOLUME 90 fL (80-99); MEAN PLATELET VOLUME 11.1 fL (9.0-12.2); MONOCYTES # (AUTO) 0.6 10^3/uL (0.0-1.0); MONOCYTES % (AUTO) 8 % (0-12); NEUTROPHILS # (AUTO) 5.3 10^3/uL (1.8-7.8); NEUTROPHILS % (AUTO) 75 % (42-75); PLATELET COUNT 216 10^3/uL (130-400); WHITE BLOOD COUNT 7.1 10^3/uL (4.3-11.0)
[2021-06-04] MEDS: KCL 20 MEQ TAB (K-DUR) PO SCH (05:47)
[2021-06-04 05:50] LABS: ALBUMIN 2.3 GM/DL (3.2-4.5); BILIRUBIN,TOTAL 1.4 MG/DL (0.1-1.0); CALCIUM 6.6 MG/DL (8.5-10.1); CREATININE SERUM 0.59 MG/DL (0.60-1.30); MAGNESIUM 1.7 MG/DL (1.6-2.4); POTASSIUM 3.5 MMOL/L (3.6-5.0); TOTAL PROTEIN 4.4 GM/DL (6.4-8.2)
[2021-06-04] MEDS: MAGNESIUM 1 GM/100 ML IVPB 100 ML IV SCH ×2 (06:01→06:10)
[2021-06-04] MEDS: POTASSIUM CL 10MEQ/50ML IVPB 50 ML IV SCH ×2 (06:01→06:10)
[2021-06-04] MEDS: inSUlin ASPART (NovoLOG) 1 UNIT/0.01 ML (CHARGE PER UNIT) SC SCH ×4 (06:10→23:37)
--- NOTE | 2021-06-04 06:13 | Diagnostic Imaging Report ---
PROCEDURE: CT abdomen and pelvis without contrast. TECHNIQUE: Multiple contiguous axial images were obtained through the abdomen and pelvis without the use of intravenous contrast. Auto Exposure Controls were utilized during the CT exam to meet ALARA standards for radiation dose reduction. INDICATION: Gastrointestinal bleeding via colostomy. COMPARISON: 05/18/2021 Bibasilar atelectasis and/or pneumonitis has developed. There is slight left basilar atelectasis as well. Gallbladder remains distended and contains high density material which may be due to sludge or stones. Unenhanced images of the liver and spleen are unremarkable. There is atrophy of the pancreas. No adrenal gland abnormality is identified. There is no evidence of hydronephrosis or renal stone. A large amount of gas and fecal material present within the right colon and proximal transverse colon leading to the anterior abdominal wall ostomy. Peripheral gas within the cecal contents makes exclusion of pneumatosis difficult. There is no evidence of organized fluid collection to indicate an abscess. Small bowel has normal caliber. There is large amount of gas within the urinary bladder which also contains a Draper catheter. IMPRESSION: Extensive dilatation of stool filled right colon to the level of anterior abdominal wall ostomy. This could be due to impaction or obstruction at the ostomy site. Possibility small amount of pneumoperitoneum is not excluded which could indicate bowel wall necrosis. There is gas within the urinary bladder which also contains a Draper catheter and urinalysis would be of use. Dictated by: Dictated on workstation # [id number]
[2021-06-04] MEDS ORDERED: CATHETER FLUSH 10 ML SYR IVP PRN (07:15)
[2021-06-04] MEDS ORDERED: HEParin (CENTRAL IV FLUSH) 500 UNIT/5 ML SYR ONE (07:26)
--- NOTE | 2021-06-04 07:30 | History & Physical ---
History of Present Illness HPI/Chief Complaint Chief complaint: Profuse bleeding from ostomy site History of present illness: This is a 65-year-old white female who was transferred from [facility] due to profuse bleeding from the ostomy site. Apparently Dr. Lemus placed the colostomy without complication from a rectal perforation and she had been doing well until profound bleeding from the ostomy site requiring ER visit and is now on her third unit of blood and has received FFP and platelets. She is on Plavix and aspirin so I did consult cardiology. Dr. Lemus will evaluate the area and follow-up on the bleeding scan and nuclear medicine. Patient is tired and not interested in conversing with me. Source: RN/MD Exam Limitations: clinical condition Date Seen 06/04/21 Time Seen by a Provider: 11:00 Attending Physician Chaya Goncalves MD PCP Deven Resendiz MD Referring Physician Date of Admission Jun 04, 2021 at 00:15 Home Medications & Allergies Home Medications Reviewed patient Home Medication Reconciliation performed by pharmacy medication reconciliations production line technician and/or nursing. Patients Allergies have been reviewed. Allergies Allergies Coded Allergies Penicillins (Verified Allergy, Unknown, 05/13/21) codeine (Verified Allergy, Unknown, 05/13/21) erythromycin base (Verified Allergy, Unknown, 05/13/21) lidocaine (Verified Allergy, Unknown, 05/13/21) tetanus toxoid, adsorbed (Verified Allergy, Unknown, 05/13/21) Past Rkydxmm-Tmdetv-Waujuj Hx Past Med/Social Hx: Reviewed Nursing Past Med/Soc Hx, Reviewed and Corrections made Patient Social History Marrital Status: single Employed/Student: retired Smoking Status: Unknown if Ever Smoked Recent Infectious Disease Expo: No Immunizations Up To Date Date of Influenza Vaccine: May 18, 2021 Past Medical History Surgeries: Abdominal, Bowel Surgery Cardiac: High Cholesterol, Hypertension, Peripheral Vascular Neurological: Stroke Menopausal Endocrine: Diabetes, Non-Insulin dep HEENT: Dysphagia Family History No Pertinent Family Hx PAST SURGICAL HISTORY: -COLONOSCOPY AND SUBSEQUENT DIVERTING COLOSTOMY 05/21/[address] LEMUS FOR RECTAL ULCER WITH PERFORATION WITH RECTAL BLEEDING. Review of Systems ROS-Unable to Obtain: Lethargic Constitutional: see HPI Physical Exam Physical Exam Vital Signs Vital Signs - First Documented 06/03/21 22:42 Temp 36.2 Pulse 103 Resp 21 B/P (MAP) 117/74 (88) Pulse Ox 98 O2 Delivery Room Air Capillary Refill : Less Than 3 Seconds Height, Weight, BMI Height: '" Weight: lbs. oz. kg; 28.79 BMI Method: General Appearance: No Apparent Distress, Other (Pale and lethargic) Respiratory: Lungs Clear, Normal Breath Sounds, No Accessory Muscle Use, No Respiratory Distress Cardiovascular: Regular Rate, Rhythm, No Edema, Tachycardia Extremity: Normal Capillary Refill, Normal Inspection, Normal Range of Motion, Non Tender, No Calf Tenderness Neurologic/Psychiatric: Other (Lethargic opens eyes) Results Results/Procedures Labs Laboratory Tests 06/03/21 22:45 06/04/21 00:25 06/04/21 02:40 06/04/21 05:05 06/05/21 04:05 Patient resulted labs reviewed. Assessment/Plan Admission Diagnosis Assessment: Hemorrhagic shock Profound bleeding from ostomy site appears to be from subcutaneous source not GI Acute blood loss anemia requiring transfusion of packed red blood cells and FFP and platelets Debility resides in a alf Hypertension Prior stroke Plan: Transfuse Supportive care IV fluid Dr. Lemus consult Cardiology consult Admission Status: Inpatient Order (span 2 midnights) Reason for Inpatient Admission: Ostomy site acute bleed Diagnosis/Problems Diagnosis/Problems (1) Hemorrhagic shock Status: Acute (2) Acute blood loss anemia Status: Acute (3) History of CVA with residual deficit Status: Chronic (4) Primary hypertension TIM CORDERO DO Jun 04, 2021 07:30
[2021-06-04] MEDS ORDERED: SENN-109 PO (09:57)
[2021-06-04] MEDS ORDERED: RELISTOR12 SQ (09:57)
--- NOTE | 2021-06-04 09:59 | Diagnostic Imaging Report ---
INDICATION: Acute bleeding from patient's colostomy. Patient was administered 31.1 mCi technetium 99m pertechnetate labeled to the patient's red blood cells imaging of the abdomen was performed. Normal activity within the vascular system is noted. Activity in the right abdomen appears to represent a renal activity. No suspicious uptake is identified within the gastrointestinal tract to suggest acute gastrointestinal bleed. There is minimal activity within the urinary bladder. IMPRESSION: Unremarkable gastrointestinal bleeding scan. Dictated by: Dictated on workstation # [id number]
--- NOTE | 2021-06-04 16:57 | Consultation-Cardiology ---
HPI-Cardiology Cardiology Consultation: Date of Consultation 06/04/21 Date of Admission 06/03/21 Attending Physician Chaya Goncalves MD Admitting Physician Deven Resendiz MD Consulting Physician MASON NARAYANAN JR, MD HPI: Time Seen by a Provider: 16:52 Chief Complaint: Reason for consultation: History of stroke now with hemorrhaging from colostomy site. At the pleasure of seeing Audrey in the intensive care unit at [facility] in [place], [place] this afternoon. She is essentially nonverbal following a stroke earlier this year. She has been residing in [facility]. She was brought to the emergency room late last evening due to imaging noticed from her colostomy site. She has been taking aspirin and clopidogrel ever since her previous stroke. Because of the current hemorrhaging, a cardiology consultation was requested. I am not able to obtain any history from the patient due to her nonverbal status. Furthermore, when I saw the patient she would barely open her eyes with moderate sternal rub. I did speak to the patient's nurse. The main question for cardiology is can the patient hold the aspirin and clopidogrel until the bleeding is controlled. Certain portions of this document may have been dictated utilizing voice recognition technology. Inherent to this technology, typographical and grammatical errors may exist. As much as I am diligent to identify and correct these mistakes, some errors may remain in the document. Review of Systems-Cardiology Review of Systems Other comments Not obtainable due to previous stroke now the patient is nonverbal. JBH-Umrlon-Hbdnjf Hx Patient Social History Have you traveled recently?: No Alcohol Use?: No Pt feels they are or have been: No Immunizations Up To Date Date of Influenza Vaccine: May 18, 2021 Past Medical History PMH As described under Assessment. Family Medical History Family Medical History: Not obtainable due to nonverbal patient. Allergies and Home Medications Allergies Coded Allergies: Penicillins (Verified Allergy, Unknown, 05/13/21) codeine (Verified Allergy, Unknown, 05/13/21) erythromycin base (Verified Allergy, Unknown, 05/13/21) lidocaine (Verified Allergy, Unknown, 05/13/21) tetanus toxoid, adsorbed (Verified Allergy, Unknown, 05/13/21) Patient Home Medication List Home Medication List Reviewed: Yes Acetaminophen (Tylenol Arthritis) 650 Mg Tablet.er, 650 MG PO Q8H PRN for PAIN-MILD (1-4), (Reported) Entered as Reported by: GIOVANNA AGUIAR on 05/19/211140 Last Action: Reviewed Ascorbate Calcium (Vitamin C) 500 Mg Tablet, 500 MG PO BID, (Reported) Entered as Reported by: GIOVANNA AGUIAR on 05/19/211140 Last Action: Reviewed Aspirin (Aspirin) 81 Mg Tab.chew, 81 MG PO DAILY, (Reported) Entered as Reported by: GIOVANNA AGUIAR on 05/19/211140 Last Action: Reviewed Atorvastatin Calcium (Atorvastatin Calcium) 80 Mg Tablet, 80 MG PO DAILY, (Reported) Entered as Reported by: GIOVANNA AGUIAR on 05/19/211140 Last Action: Reviewed Cholecalciferol (Vitamin D3) (Vitamin D3) 25 Mcg Capsule, 25 MCG PO DAILY, (Reported) Entered as Reported by: GIOVANNA AGUIAR on 05/19/211140 Last Action: Reviewed Clopidogrel Bisulfate (Plavix) 75 Mg Tablet, 75 MG PO DAILY, (Reported) Entered as Reported by: GIOVANNA AGUIAR on 05/19/211140 Last Action: Reviewed Dapagliflozin Propanediol (Farxiga) 10 Mg Tablet, 10 MG PO DAILY, (Reported) Entered as Reported by: GIOVANNA AGUIAR on 05/19/211140 Last Action: Reviewed Insulin Aspart (Novolog) 100 Unit/1 Ml Susp, UNIT SQ AC, (Reported) Entered as Reported by: GIOVANNA AGUIAR on 05/19/211140 Last Action: Reviewed Insulin Glargine,Hum.rec.anlog (Lantus) 100 Unit/1 Ml Vial, 35 UNIT SQ HS, (Reported) Entered as Reported by: GIOVANNA AGUIAR on 05/19/211140 Last Action: Reviewed Ketoconazole (Ketoconazole) 120 Ml Shampoo, 1 APPLIC TP MO,WE,FR, (Reported) Entered as Reported by: GIOVANNA AGUIAR on 05/19/211140 Last Action: Reviewed Lisinopril (Lisinopril) 10 Mg Tablet, 10 MG PO DAILY, (Reported) Entered as Reported by: GIOVANNA AGUIAR on 05/19/211140 Last Action: Reviewed Methylnaltrexone (Relistor) 12 Mg/0.6 Ml Vial, 12 MG SQ WEEK, (Reported) Entered as Reported by: GIOVANNA AGUIAR on 06/04/21956 Last Action: Reviewed Sennosides/Docusate Sodium (Senna-S Tablet) 1 Each Tablet, 2 EACH PO BID, (Reported) Entered as Reported by: GIOVANNA AGUIAR on 06/04/21956 Last Action: Reviewed Discontinued Medications Ciprofloxacin HCl (Cipro) 500 Mg Tablet, 500 MG PO BID Discontinued Reason: No Longer Taking Prescribed by: TOMY GOODMAN on 05/22/211058 Last Action: Discontinued Metronidazole (Metronidazole) 500 Mg Tablet, 500 MG PO TID Discontinued Reason: No Longer Taking Prescribed by: TOMY GOODMAN on 05/22/211058 Last Action: Discontinued Exam Vital Signs Vital Signs Date Time Temp Pulse Resp B/P (MAP) Pulse Ox O2 Delivery O2 Flow Rate FiO2 06/04/21 16:00 79 17 95 Room Air 06/04/21 16:00 36.4 06/04/21 15:00 124/66 Physical Exam General: Opens eyes to sternal rub. No acute distress. Appears older than stated age. She is obese. Eye: Conjunctivae are clear. There are no xanthelasma. HENT: Normocephalic. Atraumatic. Carotid pulsations 2/2 without bruits. Neck: Jugular venous pressure does not appear elevated. No thyromegaly appreciated. Respiratory: Lungs are clear to auscultation but with poor inspiratory effort. Respirations are non-labored. Breath sounds are equal. Symmetrical chest wall expansion. Cardiovascular: Normal rate. Regular rhythm. No murmur. No gallop. Point of maximal impulse is not appear displaced. Good pulses equal in all extremities. No edema. Gastrointestinal: Soft. Normal bowel sounds. Skin: Skin turgor is normal. There is no pallor. Neurologic: Opens eyes to moderately intense sternal rub. No other meaningful neurologic examination could be obtained due to her previous stroke. Psychiatric: Nonverbal. Labs Laboratory Tests Test 06/03/21 22:45 06/04/21 00:25 06/04/21 02:40 06/04/21 05:05 Range/Units White Blood Count 6.4 6.3 7.1 4.3-11.0 10^3/uL Red Blood Count 3.99 2.99 L 2.80 L 3.80-5.11 10^6/uL Hemoglobin 11.5 8.7 #L 10.5 #L 8.1 #L 11.5-16.0 g/dL Hematocrit 37 28 L 33 L 25 L 35-52 % Mean Corpuscular Volume 92 95 90 80-99 fL Mean Corpuscular Hemoglobin 29 29 29 25-34 pg Mean Corpuscular Hemoglobin Concent 31 L 31 L 32 32-36 g/dL Red Cell Distribution Width 16.6 H 16.8 H 16.3 H 10.0-14.5 % Platelet Count 446 H 352 216 130-400 10^3/uL Mean Platelet Volume 10.3 11.0 11.1 9.0-12.2 fL Immature Granulocyte % (Auto) 1 2 % Neutrophils (%) (Auto) 70 75 42-75 % Lymphocytes (%) (Auto) 17 14 12-44 % Monocytes (%) (Auto) 7 8 0-12 % Eosinophils (%) (Auto) 4 1 0-10 % Basophils (%) (Auto) 0 0 0-10 % Neutrophils # (Auto) 4.5 5.3 1.8-7.8 10^3/uL Lymphocytes # (Auto) 1.1 1.0 1.0-4.0 10^3/uL Monocytes # (Auto) 0.5 0.6 0.0-1.0 10^3/uL Eosinophils # (Auto) 0.2 0.1 0.0-0.3 10^3/uL Basophils # (Auto) 0.0 0.0 0.0-0.1 10^3/uL Immature Granulocyte # (Auto) 0.1 0.2 H 0.0-0.1 10^3/uL Prothrombin Time 16.2 H 12.2-14.7 SEC INR Comment 1.3 0.8-1.4 Activated Partial Thromboplast Time 26 24-35 SEC Sodium Level 159 H 155 H 135-145 MMOL/L Potassium Level 2.4 *L 3.5 L 3.6-5.0 MMOL/L Chloride Level 116 H 123 H 98-107 MMOL/L Carbon Dioxide Level 27 19 L 21-32 MMOL/L Anion Gap 16 H 13 5-14 MMOL/L Blood Urea Nitrogen 20 H 18 7-18 MG/DL Creatinine 0.59 L 0.59 L 0.60-1.30 MG/DL Estimat Glomerular Filtration Rate 100 100 BUN/Creatinine Ratio 34 31 Glucose Level 148 H 347 H 70-105 MG/DL Calcium Level 8.7 6.6 L 8.5-10.1 MG/DL Corrected Calcium 9.3 8.0 L 8.5-10.1 MG/DL Total Bilirubin 0.4 1.4 H 0.1-1.0 MG/DL Aspartate Amino Transf (AST/SGOT) 12 18 5-34 U/L Alanine Aminotransferase (ALT/SGPT) 10 8 0-55 U/L Alkaline Phosphatase 86 55 40-136 U/L Total Protein 6.8 4.4 L 6.4-8.2 GM/DL Albumin 3.3 2.3 L 3.2-4.5 GM/DL Phosphorus Level 3.0 2.3-4.7 MG/DL Magnesium Level 1.7 1.6-2.4 MG/DL Test 06/04/21 12:25 Range/Units Glucometer 197 H 70-110 MG/DL ECG Impression ECG Comment Sinus tachycardia 101 bpm with possible old anteroseptal myocardial infarction and diffuse ST-T wave changes, consider ischemia. Diagnosis/Problems Diagnosis/Problems (1) History of cerebrovascular accident with residual deficit Assessment & Plan: It seems she is well over 1 month out from her stroke from what I can gather from the records. As such, it would not be unreasonable to stop clopidogrel completely at this time. Given her current hemorrhaging, I concur with also holding aspirin. She can resume monotherapy with aspirin once the imaging has been controlled. She is currently n.p.o. When she can take pills, I recommend resuming her atorvastatin. I have also ordered an echocard iogram for the morning. (2) Primary hypertension Assessment & Plan: It appears as though she was taking lisinopril at [facility]. Her antihypertensive medication is currently on hold due to the acute blood loss anemia. We can resume lisinopril when able. (3) Mixed hyperlipidemia Assessment & Plan: Resume lisinopril when she is taking oral medication. I have taken the liberty of adding a lipid panel to previous blood sample. (4) Acute blood loss anemia Status: Acute Assessment & Plan: Most likely due to the hemorrhaging at the site of her previous colostomy. General surgery is following her in this regard. She is also receiving blood transfusions. (5) Type 2 diabetes mellitus with complication Assessment & Plan: This is being managed by the hospitalist. MASON NARAYANAN JR, MD Jun 04, 2021 16:56
[2021-06-04] MEDS ORDERED: NS IV 1000 ML 1,000 ML IV SCH (17:00)
[2021-06-04 17:41] LABS: TRIGLYCERIDES 177 MG/DL (<150); VLDL CHOLESTEROL 35 MG/DL (5-40)
[2021-06-04 17:46] LABS: CHOLESTEROL 98 MG/DL (< 200); HDL CHOLESTEROL 26 MG/DL (40-60)
--- NOTE | 2021-06-04 18:09 | Consultation - Surgery ---
History of Present Illness History of Present Illness Patient Consulted On(francisco/time) 06/04/21 18:04 Time Seen by Provider: 12:03 History of Present Illness Surgery asked to consult regarding bleeding around colostomy. 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 I first saw her on 05/18 and subsequently performed Transverse loop colostomy for a rectal ulceration that had perforated retroperitoneally and was bleeding. She came back to the hospital last night with bleeding around the stoma. According to the ER physician there was at least 1000ml of bright red bleeding in the ER along with an estimated 1000ml at skilled nursing. She was hypotensive and tachycardic in the ER and labs showed an acute blood loss anemia. Unfortunately, she is on ASA and Plavix because of her mulitple CVAs. These were stopped last night and she was transfused. I saw pt in the ICU at noon and then again around 5pm. Allergies and Home Medications Allergies Coded Allergies: Penicillins (Verified Allergy, Unknown, 05/13/21) codeine (Verified Allergy, Unknown, 05/13/21) erythromycin base (Verified Allergy, Unknown, 05/13/21) lidocaine (Verified Allergy, Unknown, 05/13/21) tetanus toxoid, adsorbed (Verified Allergy, Unknown, 05/13/21) Patient Home Medication List Home Medication List Reviewed: Yes Acetaminophen (Tylenol Arthritis) 650 Mg Tablet.er, 650 MG PO Q8H PRN for PAIN- MILD (1-4), (Reported) Entered as Reported by: GIOVANNA AGUIAR on 05/19/21 114 Last Action: Reviewed Ascorbate Calcium (Vitamin C) 500 Mg Tablet, 500 MG PO BID, (Reported) Entered as Reported by: GIOVANNA AGUIAR on 05/19/211140 Last Action: Reviewed Aspirin (Aspirin) 81 Mg Tab.chew, 81 MG PO DAILY, (Reported) Entered as Reported by: GIOVANNA AGUIAR on 05/19/211140 Last Action: Reviewed Atorvastatin Calcium (Atorvastatin Calcium) 80 Mg Tablet, 80 MG PO DAILY, (Reported) Entered as Reported by: GIOVANNA AGUIAR on 05/19/21 114 Last Action: Reviewed Cholecalciferol (Vitamin D3) (Vitamin D3) 25 Mcg Capsule, 25 MCG PO DAILY, (Reported) Entered as Reported by: GIOVANNA AGUIAR on 05/19/211140 Last Action: Reviewed Clopidogrel Bisulfate (Plavix) 75 Mg Tablet, 75 MG PO DAILY, (Reported) Entered as Reported by: GIOVANNA AGUIAR on 05/19/211140 Last Action: Reviewed Dapagliflozin Propanediol (Farxiga) 10 Mg Tablet, 10 MG PO DAILY, (Reported) Entered as Reported by: GIOVANNA AGUIAR on 05/19/211140 Last Action: Reviewed Insulin Aspart (Novolog) 100 Unit/1 Ml Susp, UNIT SQ AC, (Reported) Entered as Reported by: GIOVANNA AGUIAR on 05/19/211140 Last Action: Reviewed Insulin Glargine,Hum.rec.anlog (Lantus) 100 Unit/1 Ml Vial, 35 UNIT SQ HS, (Reported) Entered as Reported by: GIOVANNA AGUIAR on 05/19/211140 Last Action: Reviewed Ketoconazole (Ketoconazole) 120 Ml Shampoo, 1 APPLIC TP MO,WE,FR, (Reported) Entered as Reported by: GIOVANNA AGUIAR on 05/19/211140 Last Action: Reviewed Lisinopril (Lisinopril) 10 Mg Tablet, 10 MG PO DAILY, (Reported) Entered as Reported by: GIOVANNA AGUIAR on 05/19/211140 Last Action: Reviewed Methylnaltrexone (Relistor) 12 Mg/0.6 Ml Vial, 12 MG SQ WEEK, (Reported) Entered as Reported by: GIOVANNA AGUIAR on 06/04/21956 Last Action: Reviewed Sennosides/Docusate Sodium (Senna-S Tablet) 1 Each Tablet, 2 EACH PO BID, (Reported) Entered as Reported by: GIOVANNA AGUIAR on 06/04/21956 Last Action: Reviewed Discontinued Medications Ciprofloxacin HCl (Cipro) 500 Mg Tablet, 500 MG PO BID Discontinued Reason: No Longer Taking Prescribed by: TOMY GOODMAN on 05/22/211058 Last Action: Discontinued Metronidazole (Metronidazole) 500 Mg Tablet, 500 MG PO TID Discontinued Reason: No Longer Taking Prescribed by: TOMY GOODMAN on 05/22/211058 Last Action: Discontinued Past Cqsrpef-Lyvcwb-Lmdgyz Hx Patient Social History Alcohol Use?: No Have you traveled recently?: No Immunizations Up To Date Date of Influenza Vaccine: May 18, 2021 Surgeries History of Surgeries: Yes Surgeries: Abdominal, Bowel Surgery Respiratory History of Respiratory Disorde: Yes (COVID-19 05/07/21--NO TREATMENT ) Cardiovascular History of Cardiac Disorders: Yes (CAROTID DISEAASE) Cardiac Disorders: High Cholesterol, Hypertension, Peripheral Vascular Neurological History of Neurological Disord: Yes (CVA 04/06/21 WITH EXPRESSIVE APHASIA AND LEFT SIDE FLACCID PARALYSIS. 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 Genitourinary History of Genitourinary Disor: Yes (INDWELLING YEBOAH CATHETER) Gastrointestinal History of Gastrointestinal Di: Yes (RECTAL ULCER/PERFORATION/DIVERTING COLOSTOMY 05/21/21) Endocrine History of Endocrine Disorders: Yes Endocrine Disorders: Diabetes, Non-Insulin dep HEENT History of HEENT Disorders: Yes HEENT Disorders: Dysphagia Integumentary History of Skin or Integumenta: Yes (DECUBITUS ULCERS ON SACRUM/COCCYX/BUTTOCKS) Family Medical History Significant Family History: No Pertinent Family Hx Review of Systems-General ROS-Unable to Obtain: unable to obtain, pt aphasic Physical Exam-General Problems Physical Exam Vital Signs Vital Signs - First Documented 06/03/21 22:42 Temp 36.2 Pulse 103 Resp 21 B/P (MAP) 117/74 (88) Pulse Ox 98 O2 Delivery Room Air Capillary Refill : Less Than 3 Seconds General Appearance: no apparent distress, thin HEENT: No scleral icterus (R), No scleral icterus (L) Respiratory: lungs clear, normal breath sounds, no respiratory distress, no accessory muscle use Cardiovascular: no murmur, tachycardia Gastrointestinal: soft, no organomegaly, other (ostomy pink and functioning, slightly edematous. I was able to easily dilate the proximal portion of ostomy and got past the fascia. I took everything down and saw some blood coming up from around the ostomy edges. Also appeared to have small healed ulceration on the distal portion of ostomy leading into mucous fistula.) Extremities: no pedal edema Skin: warm/dry, pallor Lymphatic: no adenopathy Data Review Labs Laboratory Tests 06/03/21 22:45: White Blood Count 6.4, Red Blood Count 3.99, Hemoglobin 11.5, Hematocrit 37, Mean Corpuscular Volume 92, Mean Corpuscular Hemoglobin 29, Mean Corpuscular Hemoglobin Concent 31L, Red Cell Distribution Width 16.6H, Platelet Count 446H, Mean Platelet Volume 10.3, Immature Granulocyte % (Auto) 1, Neutrophils (%) (Auto) 70, Lymphocytes (%) (Auto) 17, Monocytes (%) (Auto) 7, Eosinophils (%) (Auto) 4, Basophils (%) (Auto) 0, Neutrophils # (Auto) 4.5, Lymphocytes # (Auto) 1.1, Monocytes # (Auto) 0.5, Eosinophils # (Auto) 0.2, Basophils # (Auto) 0.0, Immature Granulocyte # (Auto) 0.1, Prothrombin Time 16.2H, INR Comment 1.3, Activated Partial Thromboplast Time 26, Sodium Level 159H, Potassium Level 2.4*L , Chloride Level 116H, Carbon Dioxide Level 27, Anion Gap 16H, Blood Urea Nitrogen 20H, Creatinine 0.59L, Estimat Glomerular Filtration Rate 100, BUN/Creatinine Ratio 34, Glucose Level 148H, Calcium Level 8.7, Corrected Calcium 9.3, Total Bilirubin 0.4, Aspartate Amino Transf (AST/SGOT) 12, Alanine Aminotransferase (ALT/SGPT) 10, Alkaline Phosphatase 86, Total Protein 6.8, Albumin 3.3 06/04/21 00:25: White Blood Count 6.3, Red Blood Count 2.99L, Hemoglobin 8.7#L, Hematocrit 28L, Mean Corpuscular Volume 95, Mean Corpuscular Hemoglobin 29, Mean Corpuscular Hemoglobin Concent 31L, Red Cell Distribution Width 16.8H, Platelet Count 352, Mean Platelet Volume 11.0 06/04/21 02:40: Hemoglobin 10.5#L, Hematocrit 33L 06/04/21 05:05: White Blood Count 7.1, Red Blood Count 2.80L, Hemoglobin 8.1#L, Hematocrit 25L, Mean Corpuscular Volume 90, Mean Corpuscular Hemoglobin 29, Mean Corpuscular Hemoglobin Concent 32, Red Cell Distribution Width 16.3H, Platelet Count 216, Mean Platelet Volume 11.1, Immature Granulocyte % (Auto) 2, Neutrophils (%) (Auto) 75, Lymphocytes (%) (Auto) 14, Monocytes (%) (Auto) 8, Eosinophils (%) (Auto) 1, Basophils (%) (Auto) 0, Neutrophils # (Auto) 5.3, Lymphocytes # (Auto) 1.0, Monocytes # (Auto) 0.6, Eosinophils # (Auto) 0.1, Basophils # (Auto) 0.0, Immature Granulocyte # (Auto) 0.2H, Sodium Level 155H, Potassium Level 3.5L, Ch loride Level 123H, Carbon Dioxide Level 19L, Anion Gap 13, Blood Urea Nitrogen 18, Creatinine 0.59L, Estimat Glomerular Filtration Rate 100, BUN/Creatinine Ratio 31, Glucose Level 347H, Calcium Level 6.6L, Corrected Calcium 8.0L, Total Bilirubin 1.4H, Aspartate Amino Transf (AST/SGOT) 18, Alanine Aminotransferase (ALT/SGPT) 8, Alkaline Phosphatase 55, Total Protein 4.4L, Albumin 2.3L, Phosphorus Level 3.0, Magnesium Level 1.7 06/04/21 12:25: Glucometer 197H 06/04/21 14:42: Triglycerides Level 177H, Cholesterol Level 98, LDL Cholesterol Direct 48, VLDL Cholesterol 35, HDL Cholesterol 26L 06/04/21 17:31: Glucometer 137H Radiology Date of Exam:06/03/21 CT ABDOMEN/PELVIS WO PROCEDURE: CT abdomen and pelvis without contrast. TECHNIQUE: Multiple contiguous axial images were obtained through the abdomen and pelvis without the use of intravenous contrast. Auto Exposure Controls were utilized during the CT exam to meet ALARA standards for radiation dose reduction. INDICATION: Gastrointestinal bleeding via colostomy. COMPARISON: 05/18/2021 Bibasilar atelectasis and/or pneumonitis has developed. There is slight left basilar atelectasis as well. Gallbladder remains distended and contains high density material which may be due to sludge or stones. Unenhanced images of the liver and spleen are unremarkable. There is atrophy of the pancreas. No adrenal gland abnormality is identified. There is no evidence of hydronephrosis or renal stone. A large amount of gas and fecal material present within the right colon and proximal transverse colon leading to the anterior abdominal wall ostomy. Peripheral gas within the cecal contents makes exclusion of pneumatosis difficult. There is no evidence of organized fluid collection to indicate an abscess. Small bowel has normal caliber. There is large amount of gas within the urinary bladder which also contains a [place]ah catheter. IMPRESSION: Extensive dilatation of stool filled right colon to the level of anterior abdominal wall ostomy. This could be due to impaction or obstruction at the ostomy site. Possibility small amount of pneumoperitoneum is not excluded which could indicate bowel wall necrosis. There is gas within the urinary bladder which also contains a [place]oah catheter and urinalysis would be of use. Dictated by: Dictated on workstation # [id number] Dict: 06/04/21 0605 Trans: 06/04/21 0659 [id number] Interpreted by: JAROD JOHNSON MD Electronically signed by: JAROD JOHNSON MD 06/04/21 0659 Date of Exam:06/04/21 GI BLEEDING SCAN INDICATION: Acute bleeding from patient's colostomy. Patient was administered 31.1 mCi technetium 99m pertechnetate labeled to the patient's red blood cells imaging of the abdomen was performed. Normal activity within the vascular system is noted. Activity in the right abdomen appears to represent a renal activity. No suspicious uptake is identified within the gastrointestinal tract to suggest acute gastrointestinal bleed. There is minimal activity within the urinary bladder. IMPRESSION: Unremarkable gastrointestinal bleeding scan. Dictated by: Dictated on workstation # [id number] Dict: 06/04/2146 Trans: 06/04/21 1559 [id number] [id number] Interpreted by: VISHAL CAMEJO MD Electronically signed by: VISHAL CAMEJO MD 06/04/21 1559 Assessment/Plan Assessment/Plan Assessment/Plan Anemia secondary to blood loss from Ostomy site Aphasia Hx of multiple CVAs Left sided paralysis I cleaned off the ostomy site, removed a large amount of clot and when I went back to check on the pt there was no bleeding and an ostomy bag had been replace. Unfortunately, I think the bleeding was cause by the ASA and Plavix. Will monitor and I explained to the nurse how to cause some compression to stop the bleeding. Last night they only place ABDs over everything; which unfortunately was not causing any compression to control the bleeding. Hold anti-coagulation, this will increase risk of another CVA event. CARLOS LEMUS DO Jun 04, 2021 18:09
[2021-06-04] MEDS ORDERED: D5 1/2 NS W/KCL 40 MEQ/L 1,000 ML IV ONE (20:46)
[2021-06-05 04:24] LABS: BASOPHILS % (AUTO) 0 % (0-10); EOSINOPHILS # (AUTO) 0.5 10^3/uL (0.0-0.3); EOSINOPHILS % (AUTO) 6 % (0-10); HEMATOCRIT 25 % (35-52); HEMOGLOBIN 8.2 g/dL (11.5-16.0); LYMPHOCYTES # (AUTO) 1.8 10^3/uL (1.0-4.0); LYMPHOCYTES % (AUTO) 21 % (12-44); MEAN CORPUSCULAR HEMOGLOBIN 30 pg (25-34); MEAN CORPUSCULAR HGB CONC 33 g/dL (32-36); MEAN CORPUSCULAR VOLUME 92 fL (80-99); MEAN PLATELET VOLUME 11.4 fL (9.0-12.2); MONOCYTES # (AUTO) 0.4 10^3/uL (0.0-1.0); MONOCYTES % (AUTO) 5 % (0-12); NEUTROPHILS # (AUTO) 5.6 10^3/uL (1.8-7.8); NEUTROPHILS % (AUTO) 63 % (42-75); PLATELET COUNT 235 10^3/uL (130-400); WHITE BLOOD COUNT 8.9 10^3/uL (4.3-11.0)
[2021-06-05 04:34] LABS: ALBUMIN 2.2 GM/DL (3.2-4.5); POTASSIUM 3.8 MMOL/L (3.6-5.0)
[2021-06-05 04:36] LABS: CALCIUM 6.6 MG/DL (8.5-10.1)
[2021-06-05 04:37] LABS: TOTAL PROTEIN 4.3 GM/DL (6.4-8.2)
[2021-06-05 04:39] LABS: BILIRUBIN,TOTAL 0.5 MG/DL (0.1-1.0)
[2021-06-05 04:40] LABS: PHOSPHORUS 1.6 MG/DL (2.3-4.7)
[2021-06-05 04:41] LABS: CREATININE SERUM 0.47 MG/DL (0.60-1.30)
[2021-06-05] MEDS: POTASSIUM CL 10MEQ/50ML IVPB 50 ML IV SCH (04:50)
[2021-06-05] MEDS: MAGNESIUM 1 GM/100 ML IVPB 100 ML IV SCH (04:50)
[2021-06-05] MEDS: KCL 20 MEQ TAB (K-DUR) PO SCH (04:50)
[2021-06-05] MEDS: inSUlin ASPART (NovoLOG) 1 UNIT/0.01 ML (CHARGE PER UNIT) SC SCH (04:51)
[2021-06-05] MEDS: D5 1/2 NS W/KCL 40 MEQ/L 1,000 ML IV SCH (05:51)
--- NOTE | 2021-06-05 06:21 | Progress Note ---
Subjective Date Seen by a Provider: Jun 05, 2021 Objective Exam Last Set of Vital Signs Vital Signs Date Time Temp Pulse Resp B/P (MAP) Pulse Ox O2 Delivery O2 Flow Rate FiO2 06/05/21 04:09 98 Room Air 06/05/21 03:00 36.5 06/05/21 01:00 81 06/05/21 00:00 14 Capillary Refill : Less Than 3 Seconds I&O Intake and Output 06/05/21 00:00 Intake Total 2720 ml Output Total 3150 ml Balance -430 ml Intake Oral 0 ml IV Total 2450 ml Other 270 ml Output Urine Total 875 ml Drainage Total 300 ml Estimated Blood Loss 1975 ml Results Lab Laboratory Tests 06/04/21 12:25: Glucometer 197H 06/04/21 14:42: Triglycerides Level 177H, Cholesterol Level 98, LDL Cholesterol Direct 48, VLDL Cholesterol 35, HDL Cholesterol 26L 06/04/21 17:31: Glucometer 137H 06/04/21 23:37: Glucometer 81 06/05/21 04:05: White Blood Count 8.9, Red Blood Count 2.73L, Hemoglobin 8.2L, Hematocrit 25L, Mean Corpuscular Volume 92, Mean Corpuscular Hemoglobin 30, Mean Corpuscular He moglobin Concent 33, Red Cell Distribution Width 17.1H, Platelet Count 235, Mean Platelet Volume 11.4, Immature Granulocyte % (Auto) 5, Neutrophils (%) (Auto) 63, Lymphocytes (%) (Auto) 21, Monocytes (%) (Auto) 5, Eosinophils (%) (Auto) 6, Basophils (%) (Auto) 0, Neutrophils # (Auto) 5.6, Lymphocytes # (Auto) 1.8, Monocytes # (Auto) 0.4, Eosinophils # (Auto) 0.5H, Basophils # (Auto) 0.0, Immature Granulocyte # (Auto) 0.5H, Sodium Level 156H, Potassium Level 3.8, Chloride Level 124H, Carbon Dioxide Level 21, Anion Gap 11, Blood Urea Nitrogen 12, Creatinine 0.47L, Estimat Glomerular Filtration Rate 106, BUN/Creatinine Ratio 26, Glucose Level 122H, Calcium Level 6.6L, Corrected Calcium 8.0L, Phosphorus Level 1.6L, Magnesium Level 2.0, Total Bilirubin 0.5, Aspartate Amino Transf (AST/SGOT) 13, Alanine Aminotransferase (ALT/SGPT) 8, Alkaline Phosphatase 52, Total Protein 4.3L, Albumin 2.2L Diagnosis/Problems Diagnosis/Problems (1) Hemorrhagic shock Status: Acute (2) Acute blood loss anemia Status: Acute (3) History of CVA with residual deficit Status: Chronic (4) Primary hypertension TIM CORDERO DO Jun 05, 2021 06:21
[2021-06-05] MEDS: OCTREOTIDE INJECTION 500 MCG in NS (IVPB) 99 ML IV SCH (07:59)
--- NOTE | 2021-06-05 09:08 | Cardiology Progress Note ---
Progress Note-Cardiology Events since last exam Date Seen by Provider: Jun 05, 2021 Time Seen by Provider: 09:06 Events since last exam I am following her due to bleeding from her colostomy site in the setting of being on dual antiplatelet therapy for a stroke in April 2021. The patient has been nonverbal ever since that stroke. She does open her eyes to light sternal rub today. She does not follow any commands to me. I spoke to the nurse who states the bleeding has improved since stopping aspirin and clopidogrel. No other history could be obtained from the patient due to her nonverbal state. There have been no acute cardiac issues overnight. Certain portions of this document may have been dictated utilizing voice recognition technology. Inherent to this technology, typographical and grammat ical errors may exist. As much as I am diligent to identify and correct these mistakes, some errors may remain in the document. Vitals Last set of Vitals Signs Vital Signs 06/05/21 15:25 Temp 36.6 Pulse 88 Resp 20 B/P (MAP) 133/63 (86) Pulse Ox 97 O2 Delivery Room Air Labs Labs Laboratory Tests 06/05/21 04:05 Exam Vital Signs Vital Signs Date Time Temp Pulse Resp B/P (MAP) Pulse Ox O2 Delivery O2 Flow Rate FiO2 06/05/21 15:25 36.6 88 20 133/63 (86) 97 Room Air Physical Exam General: Sleeping but opens eyes to light sternal rub. No acute distress. Eye: No xanthelasma. HENT: Normocephalic. Neck: Jugular venous pressure does not appear elevated. Respiratory: Lungs are clear to auscultation. Respirations are non-labored. Breath sounds are equal. Symmetrical chest wall expansion. Cardiovascular: Normal rate. Regular rhythm. No murmur. No gallop. Trace bilateral pretibial edema. Gastrointestinal: Soft. Normal bowel sounds. Skin: Warm. Dry. Neurologic: Sleeping but opens eyes to light sternal rub. Nonverbal. Not fol lowing commands. Psychiatric: Nonverbal. Labs Laboratory Tests Test 06/04/21 17:31 06/04/21 23:37 06/05/21 04:05 Range/Units Glucometer 137 H 81 70-110 MG/DL White Blood Count 8.9 4.3-11.0 10^3/uL Red Blood Count 2.73 L 3.80-5.11 10^6/uL Hemoglobin 8.2 L 11.5-16.0 g/dL Hematocrit 25 L 35-52 % Mean Corpuscular Volume 92 80-99 fL Mean Corpuscular Hemoglobin 30 25-34 pg Mean Corpuscular Hemoglobin Concent 33 32-36 g/dL Red Cell Distribution Width 17.1 H 10.0-14.5 % Platelet Count 235 130-400 10^3/uL Mean Platelet Volume 11.4 9.0-12.2 fL Immature Granulocyte % (Auto) 5 % Neutrophils (%) (Auto) 63 42-75 % Lymphocytes (%) (Auto) 21 12-44 % Monocytes (%) (Auto) 5 0-12 % Eosinophils (%) (Auto) 6 0-10 % Basophils (%) (Auto) 0 0-10 % Neutrophils # (Auto) 5.6 1.8-7.8 10^3/uL Lymphocytes # (Auto) 1.8 1.0-4.0 10^3/uL Monocytes # (Auto) 0.4 0.0-1.0 10^3/uL Eosinophils # (Auto) 0.5 H 0.0-0.3 10^3/uL Basophils # (Auto) 0.0 0.0-0.1 10^3/uL Immature Granulocyte # (Auto) 0.5 H 0.0-0.1 10^3/uL Sodium Level 156 H 135-145 MMOL/L Potassium Level 3.8 3.6-5.0 MMOL/L Chloride Level 124 H 98-107 MMOL/L Carbon Dioxide Level 21 21-32 MMOL/L Anion Gap 11 5-14 MMOL/L Blood Urea Nitrogen 12 7-18 MG/DL Creatinine 0.47 L 0.60-1.30 MG/DL Estimat Glomerular Filtration Rate 106 BUN/Creatinine Ratio 26 Glucose Level 122 H 70-105 MG/DL Calcium Level 6.6 L 8.5-10.1 MG/DL Corrected Calcium 8.0 L 8.5-10.1 MG/DL Phosphorus Level 1.6 L 2.3-4.7 MG/DL Magnesium Level 2.0 1.6-2.4 MG/DL Total Bilirubin 0.5 0.1-1.0 MG/DL Aspartate Amino Transf (AST/SGOT) 13 5-34 U/L Alanine Aminotransferase (ALT/SGPT) 8 0-55 U/L Alkaline Phosphatase 52 40-136 U/L Total Protein 4.3 L 6.4-8.2 GM/DL Albumin 2.2 L 3.2-4.5 GM/DL Radiology ECHOCARDIOGRAM (06/05/2021): 1. This is a technically difficult study due to the entire study being done while the patient was supine. 2. Left ventricle: The cavity size is normal. There is mild concentric hypertrophy. Systolic function is normal. The estimated ejection fraction is 55- 60%. There is paradoxical septal motion secondary to an intraventricular conduction delay. Doppler parameters are consistent with abnormal left ventricul ar relaxation (grade 1 diastolic dysfunction). 3. Aortic valve: There is mild aortic valve sclerosis. 4. Pulmonary arteries: The estimated pulmonary artery systolic pressure is 23 mmHg assuming a right atrial pressure of 5 mmHg. Diagnosis/Problems Diagnosis/Problems (1) History of cerebrovascular accident with residual deficit Assessment & Plan: She is well over 1 month out from her stroke from what I can gather from the records. As such, it would not be unreasonable to stop clopidogrel completely at this time. She can resume monotherapy with aspirin once the imaging has been controlled. She is currently n.p.o. When she can take pills, I recommend resuming her atorvastatin. I did have her undergo an echocardiogram and labs not any obvious abnormalities to explain a cardioembolic source for her previous stroke. (2) Primary hypertension Assessment & Plan: It appears as though she was taking lisinopril at [facility]. This is currently on hold. We can resume lisinopril when able. (3) Mixed hyperlipidemia Assessment & Plan: Resume statin medication when she is taking oral medication. Her LDL is under good control as noted on her lipid panel from this admission. (4) Acute blood loss anemia Status: Acute Assessment & Plan: Most likely due to the hemorrhaging at the site of her previous colostomy. General surgery is following her in this regard. She is also receiving blood transfusions. (5) Type 2 diabetes mellitus with complication Assessment & Plan: This is being managed by the hospitalist. MASON NARAYANAN JR, MD Jun 05, 2021 09:08
--- NOTE | 2021-06-05 09:54 | Progress Note - Surgery ---
Subjective Time Seen by a Provider: 09:24 Subjective/Events-last exam Pt seen and examined, no changes Review of Systems unable to obtain due to aphasia Objective Exam Vital Signs Date Time Temp Pulse Resp B/P (MAP) Pulse Ox O2 Delivery O2 Flow Rate FiO2 06/05/21 09:00 79 18 127/67 97 Room Air 06/05/21 08:00 82 14 126/66 97 Room Air 06/05/21 07:00 82 28 137/70 97 Room Air 06/05/21 07:00 78 06/05/21 06:00 82 25 142/66 97 Room Air 06/05/21 05:00 79 22 127/71 97 Room Air 06/05/21 04:09 98 Room Air 06/05/21 04:00 77 23 132/71 97 Room Air 06/05/21 03:00 75 25 131/73 97 Room Air 06/05/21 03:00 36.5 Room Air 06/05/21 02:00 76 26 129/66 97 Room Air 06/05/21 01:00 79 25 128/61 97 Room Air 06/05/21 01:00 81 06/05/21 00:00 84 14 117/65 97 Room Air 06/05/21 00:00 94 Room Air 06/04/21 23:00 36.8 Room Air 06/04/21 23:00 79 15 114/63 97 Room Air 06/04/21 22:00 81 14 102/58 97 Room Air 06/04/21 21:00 82 14 114/63 97 Room Air 06/04/21 20:00 82 15 97 Room Air 06/04/21 20:00 97 Room Air 06/04/21 19:45 36.7 06/04/21 19:00 Room Air 06/04/21 19:00 89 06/04/21 19:00 83 14 97 Room Air 06/04/21 18:00 90 17 104/56 97 Room Air 06/04/21 17:00 90 18 96 Room Air 06/04/21 16:00 79 17 95 Room Air 06/04/21 16:00 96 Room Air 06/04/21 16:00 36.4 06/04/21 15:00 84 16 124/66 96 Room Air 06/04/21 14:00 88 7 108/55 96 Room Air 06/04/21 13:00 94 13 104/54 96 Room Air 06/04/21 13:00 94 06/04/21 12:49 36.8 92 21 91/54 96 06/04/21 12:00 96 30 98/60 96 Room Air 06/04/21 11:52 96 Room Air 06/04/21 11:00 98 16 91/55 97 Room Air 06/04/21 10:50 36.9 98 20 97/54 96 Room Air 06/04/21 10:27 37.0 102 20 94/52 97 Room Air 06/04/21 10:00 102 11 101/58 98 Room Air I & O 06/05/21 07:00 Intake Total 1950 ml Output Total 1600 ml Balance 350 ml Capillary Refill : Less Than 3 Seconds General Appearance: No Apparent Distress, Other (Pale and lethargic) Respiratory: Lungs Clear, Normal Breath Sounds, No Accessory Muscle Use, No Respiratory Distress Cardiovascular: Regular Rate, Rhythm, No Edema Gastrointestinal: soft, no organomegaly, other (ostomy pink and functioning, no blood in bag) Neurologic/Psychiatric: Other (Lethargic opens eyes) Skin: Pallor Results Lab Laboratory Tests 06/04/21 12:25: Glucometer 197H 06/04/21 14:42: Triglycerides Level 177H, Cholesterol Level 98, LDL Cholesterol Direct 48, VLDL Cholesterol 35, HDL Cholesterol 26L 06/04/21 17:31: Glucometer 137H 06/04/21 23:37: Glucometer 81 06/05/21 04:05: White Blood Count 8.9, Red Blood Count 2.73L, Hemoglobin 8.2L, Hematocrit 25L, Mean Corpuscular Volume 92, Mean Corpuscular Hemoglobin 30, Mean Corpuscular Hemoglobin Concent 33, Red Cell Distribution Width 17.1H, Platelet Count 235, Mean Platelet Volume 11.4, Immature Granulocyte % (Auto) 5, Neutrophils (%) (Auto) 63, Lymphocytes (%) (Auto) 21, Monocytes (%) (Auto) 5, Eosinophils (%) (Auto) 6, Basophils (%) (Auto) 0, Neutrophils # (Auto) 5.6, Lymphocytes # (Auto) 1.8, Monocytes # (Auto) 0.4, Eosinophils # (Auto) 0.5H, Basophils # (Auto) 0.0, Immature Granulocyte # (Auto) 0.5H, Sodium Level 156H, Potassium Level 3.8, Chloride Level 124H, Carbon Dioxide Level 21, Anion Gap 11, Blood Urea Nitrogen 12, Creatinine 0.47L, Estimat Glomerular Filtration Rate 106, BUN/Creatinine Ratio 26, Glucose Level 122H, Calcium Level 6.6L, Corrected Calcium 8.0L, Phosphorus Level 1.6L, Magnesium Level 2.0, Total Bilirubin 0.5, Aspartate Amino Transf (AST/SGOT) 13, Alanine Aminotransferase (ALT/SGPT) 8, Alkaline Phosphatase 52, Total Protein 4.3L, Albumin 2.2L Assessment/Plan Assessment/Plan Assessment/Plan Anemia secondary to blood loss from Ostomy site Aphasia Hx of multiple CVAs Left sided paralysis Ostomy site looks good and large amount of soft fecal material in bag with no blood. Would continue off blood thinners, she will have risk of CVA; may be able to start them again in a week or so. I will sign off, pt ok to go back to longterm from surgical standpoint. CARLOS LEMUS DO Jun 05, 2021 09:54
--- NOTE | 2021-06-05 10:00 | Progress Note - Surgery ---
Subjective Date Seen by a Provider: Jun 05, 2021 Time Seen by a Provider: 09:53 Subjective/Events-last exam Patient sleeping upon entering the room. Responsive to verbal cues. Patient seems alert, but is non-verbal so it is hard to determine current mental status. Patient's labs and vitals are currently stable. Unable to obtain review of systems due to patients current clinical status. Objective Exam Vital Signs Date Time Temp Pulse Resp B/P (MAP) Pulse Ox O2 Delivery O2 Flow Rate FiO2 06/05/21 09:00 79 18 127/67 97 Room Air 06/05/21 08:00 82 14 126/66 97 Room Air 06/05/21 07:00 82 28 137/70 97 Room Air 06/05/21 07:00 78 06/05/21 06:00 82 25 142/66 97 Room Air 06/05/21 05:00 79 22 127/71 97 Room Air 06/05/21 04:09 98 Room Air 06/05/21 04:00 77 23 132/71 97 Room Air 06/05/21 03:00 75 25 131/73 97 Room Air 06/05/21 03:00 36.5 Room Air 06/05/21 02:00 76 26 129/66 97 Room Air 06/05/21 01:00 79 25 128/61 97 Room Air 06/05/21 01:00 81 06/05/21 00:00 84 14 117/65 97 Room Air 06/05/21 00:00 94 Room Air 06/04/21 23:00 36.8 Room Air 06/04/21 23:00 79 15 114/63 97 Room Air 06/04/21 22:00 81 14 102/58 97 Room Air 06/04/21 21:00 82 14 114/63 97 Room Air 06/04/21 20:00 82 15 97 Room Air 06/04/21 20:00 97 Room Air 06/04/21 19:45 36.7 06/04/21 19:00 Room Air 06/04/21 19:00 89 06/04/21 19:00 83 14 97 Room Air 06/04/21 18:00 90 17 104/56 97 Room Air 06/04/21 17:00 90 18 96 Room Air 06/04/21 16:00 79 17 95 Room Air 06/04/21 16:00 96 Room Air 06/04/21 16:00 36.4 06/04/21 15:00 84 16 124/66 96 Room Air 06/04/21 14:00 88 7 108/55 96 Room Air 06/04/21 13:00 94 13 104/54 96 Room Air 06/04/21 13:00 94 06/04/21 12:49 36.8 92 21 91/54 96 06/04/21 12:00 96 30 98/60 96 Room Air 06/04/21 11:52 96 Room Air 06/04/21 11:00 98 16 91/55 97 Room Air 06/04/21 10:50 36.9 98 20 97/54 96 Room Air 06/04/21 10:27 37.0 102 20 94/52 97 Room Air 06/04/21 10:00 102 11 101/58 98 Room Air I & O 06/05/21 07:00 Intake Total 1950 ml Output Total 1600 ml Balance 350 ml Capillary Refill : Less Than 3 Seconds General Appearance: No Apparent Distress, Chronically ill Neck: Supple Respiratory: Lungs Clear, No Accessory Muscle Use, No Respiratory Distress Cardiovascular: Regular Rate, Rhythm, Normal Peripheral Pulses (radial) Gastrointestinal: soft, other Extremity: No Pedal Edema, Other (SCDs in place) Neurologic/Psychiatric: Aphasia, Other (Lethargic opens eyes) Results Lab Laboratory Tests 06/04/21 12:25: Glucometer 197H 06/04/21 14:42: Triglycerides Level 177H, Cholesterol Level 98, LDL Cholesterol Direct 48, VLDL Cholesterol 35, HDL Cholesterol 26L 06/04/21 17:31: Glucometer 137H 06/04/21 23:37: Glucometer 81 06/05/21 04:05: White Blood Count 8.9, Red Blood Count 2.73L, Hemoglobin 8.2L, Hematocrit 25L, Mean Corpuscular Volume 92, Mean Corpuscular Hemoglobin 30, Mean Corpuscular He moglobin Concent 33, Red Cell Distribution Width 17.1H, Platelet Count 235, Mean Platelet Volume 11.4, Immature Granulocyte % (Auto) 5, Neutrophils (%) (Auto) 63, Lymphocytes (%) (Auto) 21, Monocytes (%) (Auto) 5, Eosinophils (%) (Auto) 6, Basophils (%) (Auto) 0, Neutrophils # (Auto) 5.6, Lymphocytes # (Auto) 1.8, Monocytes # (Auto) 0.4, Eosinophils # (Auto) 0.5H, Basophils # (Auto) 0.0, Immature Granulocyte # (Auto) 0.5H, Sodium Level 156H, Potassium Level 3.8, Chloride Level 124H, Carbon Dioxide Level 21, Anion Gap 11, Blood Urea Nitrogen 12, Creatinine 0.47L, Estimat Glomerular Filtration Rate 106, BUN/Creatinine Ratio 26, Glucose Level 122H, Calcium Level 6.6L, Corrected Calcium 8.0L, Phosphorus Level 1.6L, Magnesium Level 2.0, Total Bilirubin 0.5, Aspartate Amino Transf (AST/SGOT) 13, Alanine Aminotransferase (ALT/SGPT) 8, Alkaline Phosphatase 52, Total Protein 4.3L, Albumin 2.2L Assessment/Plan Assessment/Plan Assessment/Plan Anemia secondary to blood loss from Ostomy site Aphasia Hx of multiple CVAs Left sided paralysis I cleaned off the ostomy site, removed a large amount of clot and when I went back to check on the pt there was no bleeding and an ostomy bag had been replace. Unfortunately, I think the bleeding was cause by the ASA and Plavix. Will monitor and I explained to the nurse how to cause some compression to stop the bleeding. Last night they only place ABDs over everything; which unfortunately was not causing any compression to control the bleeding. Hold anti-coagulation, this will increase risk of another CVA event. MACARENA CANTU Jun 05, 2021 10:00
--- NOTE | 2021-06-05 10:05 | Tele-ICU Progress Note ---
Subjective Date Seen by a Provider: Jun 05, 2021 Time Seen by a Provider: 10:04 Subjective/Events-last exam (Tele-ICU Physician , Progress Note ) Available chart/ vitals / labs / Images reviewed Video assessment done using teleICU camera, rest of exam as per RN Discussed with RN , EXAM PER RN Events overnight : no active bleeding Afebrile FiO2 - ra I/O = neg Drips: d51/2 @150 Pressors: , hemodynamically stable Consultants: sx Hospital course: (06/04) 65/F- GIB, 2.4 liters bright red in colostomy bag total btw. nh/transport/ed. // CVA , aphasia, NH. 05-18-21 diverting colostomy w/ rectal ulceration w/perf. 3 prbc, one platlets, one ffp. octreotide/protonix gtts. A/P ABLA, from Ostomy site (on Plavix and ASA ) - s/p transfusion 3 u PRBC and 1 U FFP - sx follow - hb stable today -PPI IV and octreotide IV - ? dc - as per sx S/p CVA 04/2021 - was on dual antiplatelet therapy- ON HOLD NOW Hypernatremia - will try D5 W @ 150 - follow DM II - ISS, Lines : periph(Central Line Necessity Reviewed) Draper: + ( pressure ulcers present - for skin OG: Nutrition: on hold Analgesia: Anxiety/ delirium VTE Prophylaxis: ON HOLD , SCD Stress Ulcer Prophylaxis: ppi Plans in collaboration with bedside consultants and IM MDs. Discussed with RN to reach out if any questions or concerns A total of 31 minutes of critical care time was devoted to this patient today, required to treat and/or prevent further deterioration of critical care condition ( as above) . Sepsis Event Evaluation Height, Weight, BMI Height: '" Weight: lbs. oz. kg; 28.79 BMI Method: Exam Exam Patient acknowledged, consented, and participated in this virtual visit which was conducted using real time audio/video Vital Signs Date Time Temp Pulse Resp B/P (MAP) Pulse Ox O2 Delivery O2 Flow Rate FiO2 06/05/21 09:00 79 18 127/67 97 Room Air 06/05/21 08:00 82 14 126/66 97 Room Air 06/05/21 07:00 82 28 137/70 97 Room Air 06/05/21 07:00 78 4/1/22 06:00 82 25 142/66 97 Room Air 06/05/21 05:00 79 22 127/71 97 Room Air 06/05/21 04:09 98 Room Air 06/05/21 04:00 77 23 132/71 97 Room Air 06/05/21 03:00 75 25 131/73 97 Room Air 06/05/21 03:00 36.5 Room Air 06/05/21 02:00 76 26 129/66 97 Room Air 06/05/21 01:00 79 25 128/61 97 Room Air 06/05/21 01:00 81 06/05/21 00:00 84 14 117/65 97 Room Air 06/05/21 00:00 94 Room Air 06/04/21 23:00 36.8 Room Air 06/04/21 23:00 79 15 114/63 97 Room Air 06/04/21 22:00 81 14 102/58 97 Room Air 06/04/21 21:00 82 14 114/63 97 Room Air 06/04/21 20:00 82 15 97 Room Air 06/04/21 20:00 97 Room Air 06/04/21 19:45 36.7 06/04/21 19:00 Room Air 06/04/21 19:00 89 06/04/21 19:00 83 14 97 Room Air 06/04/21 18:00 90 17 104/56 97 Room Air 06/04/21 17:00 90 18 96 Room Air 06/04/21 16:00 79 17 95 Room Air 06/04/21 16:00 96 Room Air 06/04/21 16:00 36.4 06/04/21 15:00 84 16 124/66 96 Room Air 06/04/21 14:00 88 7 108/55 96 Room Air 06/04/21 13:00 94 13 104/54 96 Room Air 06/04/21 13:00 94 06/04/21 12:49 36.8 92 21 91/54 96 06/04/21 12:00 96 30 98/60 96 Room Air 06/04/21 11:52 96 Room Air 06/04/21 11:00 98 16 91/55 97 Room Air 06/04/21 10:50 36.9 98 20 97/54 96 Room Air 06/04/21 10:27 37.0 102 20 94/52 97 Room Air I & O 06/05/21 07:00 Intake Total 1950 ml Output Total 1600 ml Balance 350 ml Height & Weight Height: '" Weight: lbs. oz. kg; 28.79 BMI Method: General Appearance: No Apparent Distress, Chronically ill Neck: Supple Respiratory: Lungs Clear, No Accessory Muscle Use, No Respiratory Distress Cardiovascular: Regular Rate, Rhythm, Normal Peripheral Pulses (radial) Capillary Refill: Less Than 3 Seconds Gastrointestinal: soft, other Extremity: No Pedal Edema, Other (SCDs in place) Neurologic/Psychiatric: Aphasia, Other (Lethargic opens eyes) Skin: Pallor Results Lab Laboratory Tests 06/03/21 22:45 06/04/21 00:25 06/04/21 02:40 06/04/21 05:05 06/05/21 04:05 Assessment/Plan Assessment/Plan ` YARELIS BELL MD Jun 05, 2021 10:05
[2021-06-05] MEDS ORDERED: LORazepam INJ 2 MG/ML (ATIVAN) VIAL IVP PRN (10:45)
[2021-06-05] MEDS ORDERED: ACETAMINOPHEN 650 MG SUPP (TYLENOL) PR PRN (10:45)
--- NOTE | 2021-06-05 11:57 | Progress Note ---
ENOCH AVILEZ 06/05/21 1157: Subjective Date Seen by a Provider: Jun 05, 2021 Time Seen by a Provider: 09:25 Subjective/Events-last exam The patient was laying in bed comfortably this morning. She was not in distress. She was unable to respond to any questions about her status. Review of Systems unable to obtain a review of systems Objective Exam Last Set of Vital Signs Vital Signs Date Time Temp Pulse Resp B/P (MAP) Pulse Ox O2 Delivery O2 Flow Rate FiO2 06/05/21 10:00 78 15 141/74 97 Room Air 06/05/21 03:00 36.5 Capillary Refill : Less Than 3 Seconds I&O Intake and Output 06/05/21 00:00 Intake Total 2720 ml Output Total 3150 ml Balance -430 ml Intake Oral 0 ml IV Total 2450 ml Other 270 ml Output Urine Total 875 ml Drainage Total 300 ml Estimated Blood Loss 1975 ml General: No Acute Distress, Other (unable to speak ) HEENT: Atraumatic, PERRLA, EOMI, Mucous Memb Moist/[place] Neck: Supple, No JVD Lungs: Normal Air Movement, Other (diffuse rochi ) Heart: Regular Rate, Normal S1, Normal S2, No Murmurs Abdomen: Normal Bowel Sounds, Soft, No Tenderness, No Hepatosplenomegaly, No Masses Extremities: No Clubbing, No Cyanosis, No Tenderness/Swelling Skin: No Rashes, No Breakdown, No Significant Lesion Neuro: Other (unable to speak ) Psych/Mental Status: Other (flat affect ) Results Lab Laboratory Tests 06/04/21 12:25: Glucometer 197H 06/04/21 14:42: Triglycerides Level 177H, Cholesterol Level 98, LDL Cholesterol Direct 48, VLDL Cholesterol 35, HDL Cholesterol 26L 06/04/21 17:31: Glucometer 137H 06/04/21 23:37: Glucometer 81 06/05/21 04:05: White Blood Count 8.9, Red Blood Count 2.73L, Hemoglobin 8.2L, Hematocrit 25L, Mean Corpuscular Volume 92, Mean Corpuscular Hemoglobin 30, Mean Corpuscular Hemoglobin Concent 33, Red Cell Distribution Width 17.1H, Platelet Count 235, Mean Platelet Volume 11.4, Immature Granulocyte % (Auto) 5, Neutrophils (%) (Auto) 63, Lymphocytes (%) (Auto) 21, Monocytes (%) (Auto) 5, Eosinophils (%) (Auto) 6, Basophils (%) (Auto) 0, Neutrophils # (Auto) 5.6, Lymphocytes # (Auto) 1.8, Monocytes # (Auto) 0.4, Eosinophils # (Auto) 0.5H, Basophils # (Auto) 0.0, Immature Granulocyte # (Auto) 0.5H, Sodium Level 156H, Potassium Level 3.8, Chloride Level 124H, Carbon Dioxide Level 21, Anion Gap 11, Blood Urea Nitrogen 12, Creatinine 0.47L, Estimat Glomerular Filtration Rate 106, BUN/Creatinine Ratio 26, Glucose Level 122H, Calcium Level 6.6L, Corrected Calcium 8.0L, Phosphorus Level 1.6L, Magnesium Level 2.0, Total Bilirubin 0.5, Aspartate Amino Transf (AST/SGOT) 13, Alanine Aminotransferase (ALT/SGPT) 8, Alkaline Phosphatase 52, Total Protein 4.3L, Albumin 2.2L Microbiology 06/04/21 MRSA Screen - Final, Complete MRSA not isolated Assessment/Plan Assessment/Plan Assess & Plan/Chief Complaint Assessment: Hemorrhagic shock Ostomy site bleeding likely from subcutaneous source and not GI Acute blood loss anemia requiring transfusion of packed RBCs, FFP and platelets Debility resides in long term HTN Hx of CVA Plan: Hemorrhagic shock Ostomy site bleeding likely from subcutaneous source and not GI Acute blood loss anemia requiring transfusion of packed RBCs, FFP and platelets Debility resides in long term PT will move to 4th floor for further medical care. Surgery no longer following. Continue pain management, anxiety management and antiemetic management PRN. Continue IVF. HTN Hx of CVA No acute management needed at this time. 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 until more awake Overall poor prognosis Monitor hemoglobin Supervisory-Addendum Brief Verification & Attestation Participated in pt care: history, MDM, physical Personally performed: exam, history, MDM, supervision of care Care discussed with: Medical Student Procedures: n/a Results interpretation: Verified all documentation Verification and Attestation of Medical Student E/M Service A medical student performed and documented this service in my presence. I reviewed and verified all information documented by the medical student and made modifications to such information, when appropriate. I personally performed the physical exam and medical decision making. Keely Cordero, Jun 06, 2021,05:51 ENOCH AVILEZ Jun 05, 2021 11:57 KEELY CORDERO DO Jun 06, 2021 05:51
[2021-06-05] MEDS: DEXTROSE IV SCH ×4 (12:43→18:13)
[2021-06-05] MEDS: POTASSIUM CHLORIDE IV SCH ×4 (12:43→18:13)
[2021-06-05 15:25] VITALS: BP 133/63
[2021-06-05 19:36] VITALS: BP 134/63
[2021-06-05 23:51] VITALS: BP 111/73
[2021-06-06] MEDS: POTASSIUM CHLORIDE IV SCH ×6 (01:44→22:27)
[2021-06-06] MEDS: DEXTROSE IV SCH ×6 (01:44→22:27)
[2021-06-06 04:30] VITALS: BP 146/80
[2021-06-06 04:57] LABS: BASOPHILS % (AUTO) 0 % (0-10); EOSINOPHILS # (AUTO) 0.4 10^3/uL (0.0-0.3); EOSINOPHILS % (AUTO) 4 % (0-10); HEMATOCRIT 24 % (35-52); HEMOGLOBIN 7.7 g/dL (11.5-16.0); LYMPHOCYTES # (AUTO) 1.4 10^3/uL (1.0-4.0); LYMPHOCYTES % (AUTO) 17 % (12-44); MEAN CORPUSCULAR HEMOGLOBIN 31 pg (25-34); MEAN CORPUSCULAR HGB CONC 33 g/dL (32-36); MEAN CORPUSCULAR VOLUME 94 fL (80-99); MEAN PLATELET VOLUME 11.1 fL (9.0-12.2); MONOCYTES # (AUTO) 0.4 10^3/uL (0.0-1.0); MONOCYTES % (AUTO) 4 % (0-12); NEUTROPHILS # (AUTO) 6.1 10^3/uL (1.8-7.8); NEUTROPHILS % (AUTO) 70 % (42-75); PLATELET COUNT 246 10^3/uL (130-400); WHITE BLOOD COUNT 8.8 10^3/uL (4.3-11.0)
[2021-06-06 05:04] LABS: ALBUMIN 2.2 GM/DL (3.2-4.5)
[2021-06-06 05:05] LABS: POTASSIUM 4.3 MMOL/L (3.6-5.0)
[2021-06-06 05:06] LABS: CALCIUM 6.7 MG/DL (8.5-10.1)
[2021-06-06 05:07] LABS: TOTAL PROTEIN 4.3 GM/DL (6.4-8.2)
[2021-06-06 05:09] LABS: BILIRUBIN,TOTAL 0.4 MG/DL (0.1-1.0)
[2021-06-06 05:11] LABS: CREATININE SERUM 0.46 MG/DL (0.60-1.30)
[2021-06-06 05:13] LABS: MAGNESIUM 1.8 MG/DL (1.6-2.4)
--- NOTE | 2021-06-06 07:37 | Progress Note - Hospitalist ---
Subjective HPI/CC On Admission Date Seen by Provider: Jun 06, 2021 Time Seen by Provider: 10:30 Chief complaint: Profuse bleeding from ostomy site History of present illness: This is a 65-year-old white female who was ly sferred from [facility] due to profuse bleeding from the ostomy site. Apparently Dr. Chambers placed the colostomy without complication from a rectal perforation and she had been doing well until profound bleeding from the ostomy site requiring ER visit and is now on her third unit of blood and has received FFP and platelets. She is on Plavix and aspirin so I did consult cardiology. Dr. Chambers will evaluate the area and follow-up on the bleeding scan and nuclear medicine. Patient is tired and not interested in conversing with me. Subjective/Events-last exam Patient waking up a bit more Nods her head appropriately Does not converse Hemoglobin 7.7 May need transfusion tomorrow Patient appears to be very frail and pale Will need DNR discussion Review of Systems Neurological: Confusion Objective Exam Vital Signs Vital Signs Date Time Temp Pulse Resp B/P (MAP) Pulse Ox O2 Delivery O2 Flow Rate FiO2 06/07/21 04:00 36.7 81 17 136/79 (98) 98 Room Air Capillary Refill : Greater Than 3 Seconds General Appearance: No Apparent Distress, WD/WN, Chronically ill Respiratory: Lungs Clear, Normal Breath Sounds Cardiovascular: Regular Rate, Rhythm Neurologic/Psychiatric: Alert Results/Procedures Lab Laboratory Tests 06/07/21 05:10 Patient resulted labs reviewed. Assessment/Plan Assessment and Plan Assess & Plan/Chief Complaint Assessment: Hemorrhagic shock Ostomy site bleeding from subcutaneous source and not GI Acute blood loss anemia requiring transfusion of 3 packed RBCs, FFP and platelets Debility resides in alf HTN Hx of CVA HTN Hx of CVA Aphasia due to dementia? Plan: Monitor hemoglobin Need end-of-life discussion Diagnosis/Problems Diagnosis/Problems (1) Hemorrhagic shock Status: Acute (2) Acute blood loss anemia Status: Acute (3) History of CVA with residual deficit Status: Chronic (4) Primary hypertension TIM CORDERO DO Jun 06, 2021 07:37
[2021-06-06 07:59] VITALS: BP 142/76
[2021-06-06] MEDS: PANTOPRAZOLE 40 MG (PROTONIX) VIAL IV SCH (08:25)
--- NOTE | 2021-06-06 10:25 | Progress Note ---
Subjective Date Seen by a Provider: Jun 06, 2021 Time Seen by a Provider: 10:20 Subjective/Events-last exam Patient seen with Dr. Goncalves. Patient shakes head yes when asked if she is doing ok. Objective Exam Vital Signs Date Time Temp Pulse Resp B/P (MAP) Pulse Ox O2 Delivery O2 Flow Rate FiO2 06/06/21 09:00 Room Air 06/06/21 07:59 36.5 77 20 142/76 (98) 97 Room Air 06/06/21 04:30 37.4 78 20 146/80 (102) 96 Room Air 06/05/21 23:51 36.4 82 20 111/73 (86) 97 Room Air 06/05/21 19:36 36.9 84 20 134/63 (86) 98 Room Air 06/05/21 15:25 36.6 88 20 133/63 (86) 97 Room Air 06/05/21 12:40 36.5 86 17 120/56 98 Room Air 06/05/21 12:00 81 16 125/69 97 Room Air 06/05/21 12:00 98 Room Air 06/05/21 11:00 80 14 125/68 98 Room Air I & O 06/06/21 07:00 Intake Total 2320 ml Output Total 1200 ml Balance 1120 ml Capillary Refill : Greater Than 3 Seconds General Appearance: No Apparent Distress, WD/WN Neck: Normal Inspection, Supple Respiratory: No Accessory Muscle Use, No Respiratory Distress Gastrointestinal: normal bowel sounds, non tender, soft, other (Liquid brown stool in colostomy bag. Stoma pink, moist, with no bleeding noted.) Neurologic/Psychiatric: Alert Skin: Warm/Dry, Other (pale colored skin) Results Lab Laboratory Tests 06/06/21 04:30: White Blood Count 8.8, Red Blood Count 2.51L, Hemoglobin 7.7L, Hematocrit 24L, Mean Corpuscular Volume 94, Mean Corpuscular Hemoglobin 31, Mean Corpuscular Hemoglobin Concent 33, Red Cell Distribution Width 16.9H, Platelet Count 246, Mean Platelet Volume 11.1, Immature Granulocyte % (Auto) 6, Neutrophils (%) (Auto) 70, Lymphocytes (%) (Auto) 17, Monocytes (%) (Auto) 4, Eosinophils (%) (Auto) 4, Basophils (%) (Auto) 0, Neutrophils # (Auto) 6.1, Lymphocytes # (Auto) 1.4, Monocytes # (Auto) 0.4, Eosinophils # (Auto) 0.4H, Basophils # (Auto) 0.0, Immature Granulocyte # (Auto) 0.5H, Sodium Level 147H, Potassium Level 4.3, Chloride Level 117H, Carbon Dioxide Level 20L, Anion Gap 10, Blood Urea Nitrogen 8, Creatinine 0.46L, Estimat Glomerular Filtration Rate 106, BUN/Creatinine Ratio 17, Glucose Level 260H, Calcium Level 6.7L, Corrected Calcium 8.1L, Magnesium Level 1.8, Total Bilirubin 0.4, Aspartate Amino Transf (AST/SGOT) 11, Alanine Aminotransferase (ALT/SGPT) 8, Alkaline Phosphatase 49, Total Protein 4.3L, Albumin 2.2L Microbiology 06/04/21 MRSA Screen - Final, Complete MRSA not isolated Assessment/Plan Assessment/Plan Assess & Plan/Chief Complaint A 65 year old female with Anemia secondary to blood loss from Ostomy site Aphasia Hx of multiple CVAs Left sided paralysis VSS Hgb 7.7 Start clear liquid diet and advance as tolerated Ostomy site looks good and large amount of soft fecal material in bag with no blood. Would continue off blood thinners, she will have risk of CVA; may be able to start them again in a week or so. [facility]. MARÍA PADRON WIRELESS SALES REPRESENTATIVE Jun 06, 2021 10:25
--- NOTE | 2021-06-06 12:10 | Cardiology Progress Note ---
Progress Note-Cardiology Events since last exam Date Seen by Provider: Jun 06, 2021 Time Seen by Provider: 12:06 Events since last exam I am following her due to previous stroke on dual antiplatelet therapy now with hemorrhaging at colostomy site which has improved. She is nonverbal ever since her stroke and cannot provide any history. She does not follow commands but opens her eyes to light touch today. Certain portions of this document may have been dictated utilizing voice recognition technology. Inherent to this technology, typographical and grammatical errors may exist. As much as I am diligent to identify and correct these mistakes, some errors may remain in the document. Vitals Last set of Vitals Signs Vital Signs 06/06/21 06/06/21 07:59 09:00 Temp 36.5 Pulse 77 Resp 20 B/P (MAP) 142/76 (98) Pulse Ox 97 O2 Delivery Room Air Labs Labs Laboratory Tests 06/06/21 04:30 Exam Vital Signs Vital Signs Date Time Temp Pulse Resp B/P (MAP) Pulse Ox O2 Delivery O2 Flow Rate FiO2 06/06/21 09:00 Room Air 06/06/21 07:59 36.5 77 20 142/76 (98) 97 Labs Laboratory Tests Test 06/06/21 04:30 Range/Units White Blood Count 8.8 4.3-11.0 10^3/uL Red Blood Count 2.51 L 3.80-5.11 10^6/uL Hemoglobin 7.7 L 11.5-16.0 g/dL Hematocrit 24 L 35-52 % Mean Corpuscular Volume 94 80-99 fL Mean Corpuscular Hemoglobin 31 25-34 pg Mean Corpuscular Hemoglobin Concent 33 32-36 g/dL Red Cell Distribution Width 16.9 H 10.0-14.5 % Platelet Count 246 130-400 10^3/uL Mean Platelet Volume 11.1 9.0-12.2 fL Immature Granulocyte % (Auto) 6 % Neutrophils (%) (Auto) 70 42-75 % Lymphocytes (%) (Auto) 17 12-44 % Monocytes (%) (Auto) 4 0-12 % Eosinophils (%) (Auto) 4 0-10 % Basophils (%) (Auto) 0 0-10 % Neutrophils # (Auto) 6.1 1.8-7.8 10^3/uL Lymphocytes # (Auto) 1.4 1.0-4.0 10^3/uL Monocytes # (Auto) 0.4 0.0-1.0 10^3/uL Eosinophils # (Auto) 0.4 H 0.0-0.3 10^3/uL Basophils # (Auto) 0.0 0.0-0.1 10^3/uL Immature Granulocyte # (Auto) 0.5 H 0.0-0.1 10^3/uL Sodium Level 147 H 135-145 MMOL/L Potassium Level 4.3 3.6-5.0 MMOL/L Chloride Level 117 H 98-107 MMOL/L Carbon Dioxide Level 20 L 21-32 MMOL/L Anion Gap 10 5-14 MMOL/L Blood Urea Nitrogen 8 7-18 MG/DL Creatinine 0.46 L 0.60-1.30 MG/DL Estimat Glomerular Filtration Rate 106 BUN/Creatinine Ratio 17 Glucose Level 260 H 70-105 MG/DL Calcium Level 6.7 L 8.5-10.1 MG/DL Corrected Calcium 8.1 L 8.5-10.1 MG/DL Magnesium Level 1.8 1.6-2.4 MG/DL Total Bilirubin 0.4 0.1-1.0 MG/DL Aspartate Amino Transf (AST/SGOT) 11 5-34 U/L Alanine Aminotransferase (ALT/SGPT) 8 0-55 U/L Alkaline Phosphatase 49 40-136 U/L Total Protein 4.3 L 6.4-8.2 GM/DL Albumin 2.2 L 3.2-4.5 GM/DL Diagnosis/Problems Diagnosis/Problems (1) History of cerebrovascular accident with residual deficit Assessment & Plan: She is well over 1 month out from her stroke from what I can gather from the records. As such, it would not be unreasonable to stop clopido grel completely at this time. She can resume monotherapy with aspirin once the imaging has been controlled. She is currently n.p.o. When she can take pills, I recommend resuming her atorvastatin. I did have her undergo an echocardiogram and labs not any obvious abnormalities to explain a cardioembolic source for her previous stroke. (2) Primary hypertension Assessment & Plan: It appears as though she was taking lisinopril at [facility]. Her diet has been advanced to clear liquids. I will restart lisinopril. (3) Mixed hyperlipidemia Assessment & Plan: I will resume her statin medication. (4) Acute blood loss anemia Status: Acute Assessment & Plan: Most likely due to the hemorrhaging at the site of her previous colostomy. General surgery is following her in this regard. The bleeding seems to have resolved. I have ordered to restart aspirin when okay with general surgery. I would not resume clopidogrel because she is over 1 month out from her previous stroke. (5) Type 2 diabetes mellitus with complication Assessment & Plan: This is being managed by the hospitalist. MASON NARAYANAN JR, MD Jun 06, 2021 12:10
[2021-06-06] MEDS ORDERED: lisINopril 10 MG (PRINIVIL) TABLET PO ONE (12:15)
[2021-06-06 12:22] VITALS: BP 158/85
[2021-06-06 15:31] VITALS: BP 128/78
[2021-06-06 19:23] VITALS: BP 133/77
[2021-06-06 23:49] VITALS: BP 131/81
[2021-06-07 04:00] VITALS: BP 136/79
[2021-06-07 05:29] LABS: BASOPHILS % (AUTO) 0 % (0-10); EOSINOPHILS # (AUTO) 0.2 10^3/uL (0.0-0.3); EOSINOPHILS % (AUTO) 2 % (0-10); HEMATOCRIT 24 % (35-52); HEMOGLOBIN 7.8 g/dL (11.5-16.0); LYMPHOCYTES # (AUTO) 1.5 10^3/uL (1.0-4.0); LYMPHOCYTES % (AUTO) 14 % (12-44); MEAN CORPUSCULAR HEMOGLOBIN 30 pg (25-34); MEAN CORPUSCULAR HGB CONC 32 g/dL (32-36); MEAN CORPUSCULAR VOLUME 92 fL (80-99); MEAN PLATELET VOLUME 10.9 fL (9.0-12.2); MONOCYTES # (AUTO) 0.4 10^3/uL (0.0-1.0); MONOCYTES % (AUTO) 4 % (0-12); NEUTROPHILS # (AUTO) 7.7 10^3/uL (1.8-7.8); NEUTROPHILS % (AUTO) 73 % (42-75); PLATELET COUNT 293 10^3/uL (130-400); WHITE BLOOD COUNT 10.5 10^3/uL (4.3-11.0)
[2021-06-07 05:48] LABS: ALBUMIN 2.2 GM/DL (3.2-4.5); POTASSIUM 4.1 MMOL/L (3.6-5.0)
[2021-06-07 05:51] LABS: TOTAL PROTEIN 4.4 GM/DL (6.4-8.2)
[2021-06-07 05:53] LABS: BILIRUBIN,TOTAL 0.4 MG/DL (0.1-1.0)
[2021-06-07 05:55] LABS: CREATININE SERUM 0.48 MG/DL (0.60-1.30)
[2021-06-07 05:57] LABS: MAGNESIUM 1.6 MG/DL (1.6-2.4)
--- NOTE | 2021-06-07 06:50 | Progress Note - Hospitalist ---
Subjective HPI/CC On Admission Date Seen by Provider: Jun 07, 2021 Time Seen by Provider: 11:45 Chief complaint: Profuse bleeding from ostomy site History of present illness: This is a 65-year-old white female who was ly sferred from [facility] due to profuse bleeding from the ostomy site. Apparently Dr. Chambers placed the colostomy without complication from a rectal perforation and she had been doing well until profound bleeding from the ostomy site requiring ER visit and is now on her third unit of blood and has received FFP and platelets. She is on Plavix and aspirin so I did consult cardiology. Dr. Chambers will evaluate the area and follow-up on the bleeding scan and nuclear medicine. Patient is tired and not interested in conversing with me. Subjective/Events-last exam Patient doing well from hemoglobin standpoint Very end stage Needs hospice discussed with social work tomorrow Definitely needs DNR Hemoglobin stable at 7.8 Advancing diet a bit No pain is reported Able to nod answers appropriately to questions Review of Systems General: Fatigue, Malaise Neurological: Confusion Objective Exam Vital Signs Vital Signs Date Time Temp Pulse Resp B/P (MAP) Pulse Ox O2 Delivery O2 Flow Rate FiO2 06/08/21 04:00 36.6 94 18 94/53 (67) 97 Room Air Capillary Refill : Greater Than 3 Seconds General Appearance: No Apparent Distress, WD/WN, Chronically ill, Other (Pale) Respiratory: Lungs Clear, Normal Breath Sounds Cardiovascular: Regular Rate, Rhythm Neurologic/Psychiatric: Alert Results/Procedures Lab Laboratory Tests 06/07/21 05:10 06/08/21 03:30 Patient resulted labs reviewed. Assessment/Plan Assessment and Plan Assess & Plan/Chief Complaint Assessment: Hemorrhagic shock Ostomy site bleeding from subcutaneous source and not GI Acute blood loss anemia requiring transfusion of 3 packed RBCs, FFP and platelets Debility resides in fpc HTN Hx of CVA HTN Hx of CVA Aphasia due to dementia? Plan: Monitor hemoglobin Need end-of-life discussion 06/07/2021: Needs DNR discussion Needs hospice Diagnosis/Problems Diagnosis/Problems (1) Hemorrhagic shock Status: Acute (2) Acute blood loss anemia Status: Acute (3) History of CVA with residual deficit Status: Chronic (4) Primary hypertension TIM CORDERO DO Jun 07, 2021 06:50
[2021-06-07 07:21] VITALS: BP 132/74
[2021-06-07] MEDS: lisINopril 10 MG (PRINIVIL) TABLET PO SCH (08:03)
[2021-06-07] MEDS: PANTOPRAZOLE 40 MG (PROTONIX) VIAL IV SCH (08:04)
[2021-06-07] MEDS: POTASSIUM CHLORIDE IV SCH ×4 (08:42→18:53)
[2021-06-07] MEDS: DEXTROSE IV SCH ×4 (08:42→18:53)
[2021-06-07] MEDS ORDERED: ASPIRIN 81 MG CHEW (CHILDREN'S ASA) PO SCH (09:00)
[2021-06-07 11:17] VITALS: BP 111/55
[2021-06-07 15:47] VITALS: BP 137/67
--- NOTE | 2021-06-07 17:25 | Cardiology Progress Note ---
Progress Note-Cardiology Events since last exam Date Seen by Provider: Jun 07, 2021 Time Seen by Provider: 17:20 Events since last exam I am following her due to previous stroke on dual antiplatelet therapy and then she was admitted for hemorrhaging from her ostomy site. The hemorrhaging as not recurred for over 48 hours. I discontinued her clopidogrel because she was well over 1 month out from her previous stroke. She is back on aspirin. I am not able to obtain any history from the patient because she is nonverbal following her stroke earlier this year. I spoke with the nurse and the plan is to trans [facility] back to the [facility] facility possibly tomorrow. Certain portions of this document may have been dictated utilizing voice recognition technology. Inherent to this technology, typographical and grammatical errors may exist. As much as I am diligent to identify and correct these mistakes, some errors may remain in the document. Vitals Last set of Vitals Signs Vital Signs 06/07/21 15:47 Temp 35.9 Pulse 81 Resp 18 B/P (MAP) 137/67 (90) Pulse Ox 99 O2 Delivery Room Air Labs Labs Laboratory Tests 06/07/21 05:10 Exam Vital Signs Vital Signs Date Time Temp Pulse Resp B/P (MAP) Pulse Ox O2 Delivery O2 Flow Rate FiO2 06/07/21 15:47 35.9 81 18 137/67 (90) 99 Room Air Physical Exam General: Opens her eyes to voice but is nonverbal. No acute distress. Eye: No xanthelasma. HENT: Normocephalic. Neck: Jugular venous pressure does not appear elevated. Respiratory: Lungs are clear to auscultation. Respirations are non-labored. Breath sounds are equal. Symmetrical chest wall expansion. Cardiovascular: Normal rate. Regular rhythm. No murmur. No gallop. No edema. Gastrointestinal: Soft. Normal bowel sounds. Skin: Warm. Dry. Neurologic: Nonverbal. Left hemiparesis. Psychiatric: Opens her eyes to voice. Labs Laboratory Tests Test 06/07/21 05:10 06/07/21 06:45 Range/Units White Blood Count 10.5 4.3-11.0 10^3/uL Red Blood Count 2.64 L 3.80-5.11 10^6/uL Hemoglobin 7.8 L 11.5-16.0 g/dL Hematocrit 24 L 35-52 % Mean Corpuscular Volume 92 80-99 fL Mean Corpuscular Hemoglobin 30 25-34 pg Mean Corpuscular Hemoglobin Concent 32 32-36 g/dL Red Cell Distribution Width 16.3 H 10.0-14.5 % Platelet Count 293 130-400 10^3/uL Mean Platelet Volume 10.9 9.0-12.2 fL Immature Granulocyte % (Auto) 6 % Neutrophils (%) (Auto) 73 42-75 % Lymphocytes (%) (Auto) 14 12-44 % Monocytes (%) (Auto) 4 0-12 % Eosinophils (%) (Auto) 2 0-10 % Basophils (%) (Auto) 0 0-10 % Neutrophils # (Auto) 7.7 1.8-7.8 10^3/uL Lymphocytes # (Auto) 1.5 1.0-4.0 10^3/uL Monocytes # (Auto) 0.4 0.0-1.0 10^3/uL Eosinophils # (Auto) 0.2 0.0-0.3 10^3/uL Basophils # (Auto) 0.0 0.0-0.1 10^3/uL Immature Granulocyte # (Auto) 0.6 H 0.0-0.1 10^3/uL Sodium Level 140 135-145 MMOL/L Potassium Level 4.1 3.6-5.0 MMOL/L Chloride Level 110 H 98-107 MMOL/L Carbon Dioxide Level 21 21-32 MMOL/L Anion Gap 9 5-14 MMOL/L Blood Urea Nitrogen 4 L 7-18 MG/DL Creatinine 0.48 L 0.60-1.30 MG/DL Estimat Glomerular Filtration Rate 105 BUN/Creatinine Ratio 8 Glucose Level 272 H 70-105 MG/DL Calcium Level 7.0 L 8.5-10.1 MG/DL Corrected Calcium 8.4 L 8.5-10.1 MG/DL Magnesium Level 1.6 1.6-2.4 MG/DL Total Bilirubin 0.4 0.1-1.0 MG/DL Aspartate Amino Transf (AST/SGOT) 9 5-34 U/L Alanine Aminotransferase (ALT/SGPT) 8 0-55 U/L Alkaline Phosphatase 61 40-136 U/L Total Protein 4.4 L 6.4-8.2 GM/DL Albumin 2.2 L 3.2-4.5 GM/DL Iron Level 18 L 33-167 ug/dL Diagnosis/Problems Diagnosis/Problems (1) History of cerebrovascular accident with residual deficit Assessment & Plan: She is well over 1 month out from her stroke. As such, I santiago ve stopped clopidogrel completely. She is now back on aspirin and statin medication. I did have her undergo an echocardiogram and this did not any obvious abnormalities to explain a cardioembolic source for her previous stroke. (2) Primary hypertension Assessment & Plan: I restarted her lisinopril which she was taking at the [facility] facility and her blood pressures have been good. (3) Mixed hyperlipidemia Assessment & Plan: Her statin medication has been ordered. (4) Acute blood loss anemia Status: Acute Assessment & Plan: Most likely due to the hemorrhaging at the site of her previous colostomy. General surgery is following her in this regard. The bleeding seems to have resolved. She has received aspirin and there has been no recurrence of the bleeding. (5) Type 2 diabetes mellitus with complication Assessment & Plan: This is being managed by the hospitalist. MASON NARAYANAN JR, MD Jun 07, 2021 17:25
[2021-06-07 19:36] VITALS: BP 105/51
[2021-06-08] VITALS (9 sets, daily range): BP systolic 94–125; BP diastolic 53–77
[2021-06-08 03:37] LABS: BASOPHILS % (AUTO) 0 % (0-10); EOSINOPHILS # (AUTO) 0.2 10^3/uL (0.0-0.3); EOSINOPHILS % (AUTO) 2 % (0-10); HEMATOCRIT 21 % (35-52); LYMPHOCYTES # (AUTO) 1.5 10^3/uL (1.0-4.0); LYMPHOCYTES % (AUTO) 14 % (12-44); MEAN CORPUSCULAR HEMOGLOBIN 30 pg (25-34); MEAN CORPUSCULAR HGB CONC 32 g/dL (32-36); MEAN CORPUSCULAR VOLUME 93 fL (80-99); MEAN PLATELET VOLUME 10.7 fL (9.0-12.2); MONOCYTES # (AUTO) 0.5 10^3/uL (0.0-1.0); MONOCYTES % (AUTO) 5 % (0-12); NEUTROPHILS # (AUTO) 7.8 10^3/uL (1.8-7.8); NEUTROPHILS % (AUTO) 73 % (42-75); PLATELET COUNT 295 10^3/uL (130-400); WHITE BLOOD COUNT 10.7 10^3/uL (4.3-11.0)
[2021-06-08 03:41] LABS: HEMOGLOBIN 6.7 g/dL (11.5-16.0)
[2021-06-08] MEDS ORDERED: NS IV 500 ML 500 ML IV SCH ×2 (03:45→07:15)
[2021-06-08 03:49] LABS: ALBUMIN 2.1 GM/DL (3.2-4.5); POTASSIUM 4.1 MMOL/L (3.6-5.0)
[2021-06-08 03:51] LABS: TOTAL PROTEIN 4.2 GM/DL (6.4-8.2)
[2021-06-08 03:53] LABS: BILIRUBIN,TOTAL 0.5 MG/DL (0.1-1.0)
[2021-06-08 03:55] LABS: CREATININE SERUM 0.49 MG/DL (0.60-1.30)
[2021-06-08 03:57] LABS: MAGNESIUM 1.5 MG/DL (1.6-2.4)
[2021-06-08] MEDS: DEXTROSE IV SCH ×4 (08:52→19:29)
[2021-06-08] MEDS: POTASSIUM CHLORIDE IV SCH ×4 (08:52→19:29)
[2021-06-08] MEDS: PANTOPRAZOLE 40 MG (PROTONIX) VIAL IV SCH (08:52)
[2021-06-08] MEDS: lisINopril 10 MG (PRINIVIL) TABLET PO SCH (08:52)
--- NOTE | 2021-06-08 09:50 | Speech Therapy Progress Note ---
Therapy Progress Note Speech Pathology received the consultation for a clinical bedside swallowing evaluation and reviewed the patient's chart. The patient is currently receiving a dysphagia one consistency diet with nectar-thick liquid. The clinician attempted the swallowing assessment at 0932. The patient was seated upright in her bed, eyes open upon entrance. The patient does not respond to verbal greeting from clinician or make eye contact. The patient orally accepted half a teaspoon of applesauce. Regardless of maximum clinician verbal prompting and gentle tactile stimulation, the patient does not elicit a pharyngeal swallow response or attempt to transfer the bolus posterior in the oral cavity. Due to this, the bolus was removed by the clinician via moist swab. The patient does not accept nectar-thick liquid via spoon or straw. At this time, the patient is not accepting P.O. boluses presented by the clinician regardless of maximum verbal prompting. Per RN and patient manager wound care, the patient displays the same behavior during their attempts. Speech pathology will continue to attempt evaluation as the patient is appropriate. EMELINA JOINER Jun 08, 2021 09:50
--- NOTE | 2021-06-08 11:58 | Progress Note - Hospitalist ---
ENOCH AVILEZ 06/08/21 1158: Subjective HPI/CC On Admission Time Seen by Provider: 08:30 Chief complaint: Profuse bleeding from ostomy site History of present illness: This is a 65-year-old white female who was transferred from [facility] due to profuse bleeding from the ostomy site. Apparently Dr. Chambers placed the colostomy without complication from a rectal perforation and she had been doing well until profound bleeding from the ostomy site requiring ER visit and is now on her third unit of blood and has received FFP and platelets. She is on Plavix and aspirin so I did consult cardiology. Dr. Chambers will evaluate the area and follow-up on the bleeding scan and nuclear medicine. Patient is tired and not interested in conversing with me. Subjective/Events-last exam PT was sleeping in bed this morning and did not appear to be in any acute distress. She continues to be unable to speak or respond to any questions. Review of Systems unable to obtain a review of systems Objective Exam Vital Signs Vital Signs Date Time Temp Pulse Resp B/P (MAP) Pulse Ox O2 Delivery O2 Flow Rate FiO2 06/08/21 09:00 100 Room Air 06/08/21 08:00 36.2 95 16 112/60 (77) Capillary Refill : Greater Than 3 Seconds General Appearance: No Apparent Distress, Chronically ill HEENT: PERRL/EOMI, Pharynx Normal, Moist Mucous Membranes Neck: Normal Inspection, Non Tender, Supple Respiratory: Chest Non Tender, Lungs Clear, Normal Breath Sounds, No Accessory Muscle Use, No Respiratory Distress Cardiovascular: Regular Rate, Rhythm, No Edema, No Gallop, No JVD, No Murmur, Normal Peripheral Pulses Gastrointestinal: Normal Bowel Sounds, No Organomegaly, No Pulsatile Mass, Non Tender, Soft, Other (ostomy bag in place) Extremity: Normal Inspection, Non Tender, No Pedal Edema Neurologic/Psychiatric: Aphasia, Depressed Affect Skin: Normal Color, Warm/Dry Lymphatic: No Adenopathy Results/Procedures Lab Laboratory Tests 06/08/21 03:30 Patient resulted labs reviewed. Assessment/Plan Assessment and Plan Assess & Plan/Chief Complaint Assessment: Anemia Ostomy site bleeding likely from subcutaneous source and not GI Hemorrhagic shock resolved Debility resides in longterm Aphasia HTN Hx of CVA Plan: Anemia PT will receive 1 unit of Red cells with leukocytes reduced, and will start IV iron replacement therapy. Ostomy site bleeding likely from subcutaneous source and not GI Hemorrhagic shock resolved Continue IVF. Monitor ostomy site, and contents within ostomy bag. HTN Hx of CVA No acute management needed at this time. Debility resides in longterm Aphasia Consider hospice due to the patient's clinical status. KEELY CORDERO DO 06/09/21 0523: Subjective HPI/CC On Admission Date Seen by Provider: Jun 09, 2021 Subjective/Events-last exam Pt is doing about the same Hemoglobin is 6.7 Iron level is 18 Really needs hospice The social insurance analyst reached out to pt's daughter who I will talk with tomorrow but she seems open to hospice Objective Exam General Appearance: No Apparent Distress, WD/WN, Chronically ill, Thin Assessment/Plan Assessment and Plan Assess & Plan/Chief Complaint Hospice discussion tomorrow Supervisory-Addendum Brief Verification & Attestation Participated in pt care: history, MDM, physical Personally performed: exam, history, MDM, supervision of care Care discussed with: Medical Student Procedures: n/a Results interpretation: Verified all documentation Verification and Attestation of Medical Student E/M Service A medical student performed and documented this service in my presence. I reviewed and verified all information documented by the medical student and made modifications to such information, when appropriate. I personally performed the physical exam and medical decision making. Keely Cordero, Jun 09, 2021,05:23 ENOCH AVILEZ Jun 08, 2021 11:58 KEELY CORDERO DO Jun 09, 2021 05:23
--- NOTE | 2021-06-08 12:01 | Occupational Therapy Eval ---
OT Evaluation-General/PLF Medical Diagnosis Admission Date Jun 04, 2021 at 00:15 Medical Diagnosis: acute bleeding from colostomy Onset Date: Jun 04, 2021 Therapy Diagnosis Therapy Diagnosis: decreased ADL status Precautions Precautions/Isolations: Fall Prevention, Standard Precautions, Pressure Ulcer Referral Physician: Jorge Girard Reason: Evaluation/Treatment Medical History Pertinent Medical History: CVA, HTN Additional Medical History HTN, PVD, CVA (nonverbal since recent stroke), DM, dysphagia colonoscopy with subsequent diverting colostomy 05/21/21 Current History transfer from [facility] due to profuse bleeding from ostomy site. Social History Home: Snf ADL-Prior Level of Function SCALE: Activities may be completed with or without assistive devices. 9-Pavxpkeqtn-hnamwvz completes the activity by him/herself with no assistance from a helper. 5-Set-up or Clean-up Assistance-helper sets up or cleans up; patient completes activity. [place] assists only prior to or following the activity. 4-Supervision or Touching Assistance-helper provides verbal cues and/or touching/steadying and/or contact guard assistance as patient completes activity. Assistance may be provided throughout the activity or intermittently. 3-Partial/Moderate Assistance-helper does LESS THAN HALF the effort. [place] lifts, holds or supports trunk or limbs, but provides less than half the effort. 2-Substantial/Maximal Assistance-helper does MORE THAN HALF the effort. [place] lifts or holds trunk or limbs and provides more than half the effort. 1-Sgylkipjj-raefee does ALL the effort. Patient does none of the effort to complete the activity. Or, the assistance of 2 or more helpers is required for the patient to complete the activity. If activity was not attempted, code reason: 7-Patient Refused. 9-Not Applicable-not attempted and the patient did not perform the activity before the current illness, exacerbation or injury. 10-Not Attempted due to Environmental Limitations-(lack of equipment, weather restraints, etc.). 88-Not Attempted due to Medical Conditions or Safety Concerns. ADL PLOF Comments Pt unable to provide information about PLOF. Per facility report, pt requires inderjit for transfers, per clinical judgment, assistance required with all ADLs Self Care: Needed Some Help Functional Cognition: Needed Some Help OT Current Status Subjective Pt in bed, nonverbal throughout tx. Pt able to track therapist with her eyes, but did not follow commands. Mental Status/Objective Patient Orientation: Non-Verbal/Aphasic, Eyes Open Attachments: IV Current Upper Extremity ROM decreased bilaterally. No AROM palpated LUE, PROM WFL RUE slight spontaneous active movements noted. Pt wiggled fingers spontaneously throughout tx and attempted shoulder flexion with instruction. Did not attempt to make a fist when asked. PROM WFL RUE. Upper Extremity Coordination decreased Upper Extremity Sensation unable to assess Upper Extremity Strength unable to assess Edema: slight swelling noted dorsal aspect of Bilateral hands. ADL-Treatment Eating (QC): 88 (Per speech report, pt unable to elicit swallow, nor move bolus posteriorly) Oral Hygiene (QC): 1 (Per clincial judgment, total assist required with task.) Shower/Bathe Self (QC): 1 (Per clincial judgment, total assist required with task.) Upper Body Dressing (QC): 88 Lower Body Dressing (QC): 1 (Per clincial judgment, total assist required with task.) On/Off Footwear (QC): 1 (Per clincial judgment, total assist required with task.) Toileting Hygiene (QC): 1 (Per clincial judgment, total assist required with task.) Other Treatments Pt in bed, nonverbal throughout tx. Pt tracked OT with her eyes during session. OT attempted ROM LUE, no active movements palpated, but WFL PROM. RUE ROM assessed, pt attempted to flex R shoulder when asked. OT asked pt to make a fist in order to squeeze therapists finger and pt did not follow instruction. Noted pt "wiggling" her R fingers spontaneously throughout session. OT performed gentle retrograde massage with lotion to dorsal aspect of bilateral hands in order to decrease swelling. OT washed pt's face dependently, and dependently combed pt's hair. Post tx, pt in bed, call light in reach. Education OT Patient Education: Correct positioning, Energy conservation, Modified ADL techniques, Progress toward Goal/Update tx plan, Purpose of tx/functional activities Teaching Recipient: Patient Teaching Methods: Demonstration, Discussion Response to Teaching: Unable to Comprehend OT Correction Goals Grinder Chipper Goals Time Frame: Jun 19, 2021 Eating (QC): 2 Oral Hygiene (QC): 2 Additional Goals: 1-Demonstrate ADL Tasks, 2-Verbalize Understanding, 3- ImproveStrength/Sawyer 1=Demonstrate adherence to instructed precautions during ADL tasks. 2=Patient will verbalize/demonstrate understanding of assistive devices/modifications for ADL. 3=Patient will improve strength/tolerance for activity to enable patient to perform ADL's. OT Education/Plan Problem List/Assessment Assessment: Decreased Activ Tolerance, Decreased UE Strength, Dependent Transfers, Impaired Bed Mobility, Impaired Cognition, Impaired Coordination, Impaired Funct Balance, Impaired I ADL's, Impaired Self-Care Skills, Restricted Funct UE ROM Discharge Recommendations Plan/Recommendations: Continue POC Treatment Plan/Plan of Care Patient would benefit from OT for education, treatment and training to promote i ndependence in ADL's, mobility, safety and/or upper extremity function for ADL's. Plan of Care: ADL Retraining, Functional Mobility, UE Funct Exercise/Act Treatment Duration: Jun 19, 2021 Frequency: 3 times per week (3-5 times per week) Estimated Hrs Per Day: .25 hour per day Rehab Potential: Guarded Time/GCodes Start Time: 11:30 Stop Time: 11:42 Total Time Billed (hr/min): 12 Billed Treatment Time 1, SARTHAK DE JESUS OT Jun 08, 2021 12:01
--- NOTE | 2021-06-08 13:37 | Physical Therapy Evaluation ---
PT Evaluation-General Medical Diagnosis Admission Date Jun 04, 2021 at 00:15 Medical Diagnosis: acute bleeding from colostomy Onset Date: Jun 04, 2021 Therapy Diagnosis Therapy Diagnosis: debility Precautions Precautions/Isolations: Fall Prevention, Standard Precautions, Pressure Ulcer Referral Physician: Jorge Reason for Referral: Evaluation/Treatment Medical History Pertinent Medical History: CVA, DM, HTN Current History EMS secondary to bleeding from colostomy Reviewed History: Yes Social History Home: Correction Prior Prior Level of Function SCALE: Activities may be completed with or without assistive devices. 8-Hbiwhjbgmt-jjmfraf completes the activity by him/herself with no assistance from a helper. 5-Set-up or Clean-up Assistance-helper sets up or cleans up; patient completes activity. [place] assists only prior to or following the activity. 4-Supervision or Touching Assistance-helper provides verbal cues and/or touching/steadying and/or contact guard assistance as patient completes activity. Assistance may be provided throughout the activity or intermittently. 3-Partial/Moderate Assistance-helper does LESS THAN HALF the effort. [place] lifts, holds or supports trunk or limbs, but provides less than half the effort. 2-Substantial/Maximal Assistance-helper does MORE THAN HALF the effort. [place] lifts or holds trunk or limbs and provides more than half the effort. 3-Ndowtcewn-xasntm does ALL the effort. Patient does none of the effort to complete the activity. Or, the assistance of 2 or more helpers is required for the patient to complete the activity. If activity was not attempted, code reason: 7-Patient Refused. 9-Not Applicable-not attempted and the patient did not perform the activity before the current illness, exacerbation or injury. 10-Not Attempted due to Environmental Limitations-(lack of equipment, weather restraints, etc.). 88-Not Attempted due to Medical Conditions or Safety Concerns. Bed Mobility: 1 Transfers (B,C,W/C): 1 (Elisa per [facility] staff) Indoor Mobility (Ambulation): Not [place] Stairs: Not [place] Prior Devices Use: Mechanical lift PT Evaluation-Current Objective Patient Orientation: Non-Verbal/Aphasic ROM/Strength ROM Lower Extremities bilateral LE WFL Strength Lower Extremities flaccid bilaterally Integumentary/Posture Integumentary refer to nursing notes Bladder Incontinence: Draper Cath Neuromuscular (Tone, Coordination, Reflexes) flaccid all extremities Sensory Vision: Unable to Assess Hearing: Unable to Assess Transfers Roll Left to Right (QC): 1 (x 2) Chair/Cjb-ct-Zlkzu Xfer(QC): 1 (x 3 Elisa lift) Assessment/Needs Patient moaning during session. Patient up in recliner with this PT assessing safety of patient and deciding to return patient to bed and reposition sidelying right with pillow placement to relieve pressure (behind back, LEs and between LE's). Patient is dependent PLOF, therefore, no skilled PT indicated. Nursing to continue with Elisa transfers and repositioning. Rehab Potential: Poor PT Plan Treatment/Plan Treatment Plan: Discontinue PT Treatment Duration: Jun 08, 2021 Frequency: 1 time per week Estimated Hrs Per Day: .5 hour per day Time/GCodes Time In: 1245 Time Out: 1320 Total Billed Treatment Time: 35 Total Billed Treatment 1 visit EVModC 15 min FA 20 min BEBA BRAVO PT Jun 08, 2021 13:37
[2021-06-08] MEDS ORDERED: METHYLNALTREXONE 12 MG/0.6 ML (RELISTOR) VIAL SQ SCH (13:45)
[2021-06-08] MEDS ORDERED: NON-FORMULARY MEDICATION 1 EA EA (Ketoconazole 1 APPLIC) TP SCH (13:45)
--- NOTE | 2021-06-08 13:56 | Progress Note - Surgery ---
MACARENA CANTU 06/08/21 1356: Subjective Date Seen by a Provider: Jun 08, 2021 Time Seen by a Provider: 13:53 Subjective/Events-last exam Patient asleep when entering the room. Very lethargic, not opening eyes to verbal cues. There is blood in her ostomy bag. Hemoglobin is down to 6.7, patient has another unit of RBC ordered. Patient is unable to provide ROS at this time due to aphasia. Objective Exam Vital Signs Date Time Temp Pulse Resp B/P (MAP) Pulse Ox O2 Delivery O2 Flow Rate FiO2 06/08/21 11:47 36.6 102 18 117/74 (88) 95 Room Air 06/08/21 09:00 100 Room Air 06/08/21 08:00 36.2 95 16 112/60 (77) 100 Room Air 06/08/21 07:45 36.2 95 16 112/60 100 Room Air 06/08/21 05:32 36.7 99 20 105/58 100 Room Air 06/08/21 05:10 36.4 100 20 107/57 99 Room Air 06/08/21 04:00 36.6 94 18 94/53 (67) 97 Room Air 06/08/21 00:00 36.5 87 18 119/63 (81) 99 Room Air 06/07/21 21:00 Room Air 06/07/21 19:36 36.4 78 16 105/51 (69) 98 Room Air 06/07/21 15:47 35.9 81 18 137/67 (90) 99 Room Air I & O 06/08/21 06:59 Intake Total 1420 ml Output Total 4925 ml Balance -3505 ml Capillary Refill : Greater Than 3 Seconds General Appearance: No Apparent Distress, Chronically ill Respiratory: Lungs Clear, Normal Breath Sounds, No Accessory Muscle Use, No Respiratory Distress Cardiovascular: Regular Rate, Rhythm, No Gallop, No Murmur, Normal Peripheral Pulses Gastrointestinal: soft, other (Blood noted in her ostomy bag; stoma appears patent) Extremity: No Pedal Edema, Other (SCD's in blace bilaterally) Neurologic/Psychiatric: Aphasia, Depressed Affect Skin: Normal Color, Warm/Dry Results Lab Laboratory Tests 06/08/21 03:30: White Blood Count 10.7, Red Blood Count 2.26L, Hemoglobin 6.7*L, Hematocrit 21L, Mean Corpuscular Volume 93, Mean Corpuscular Hemoglobin 30, Mean Corpuscular Hemoglobin Concent 32, Red Cell Distribution Width 17.0H, Platelet Count 295, Mean Platelet Volume 10.7, Immature Granulocyte % (Auto) 7, Neutrophils (%) (Auto) 73, Lymphocytes (%) (Auto) 14, Monocytes (%) (Auto) 5, Eosinophils (%) (Auto) 2, Basophils (%) (Auto) 0, Neutrophils # (Auto) 7.8, Lymphocytes # (Auto) 1.5, Monocytes # (Auto) 0.5, Eosinophils # (Auto) 0.2, Basophils # (Auto) 0.0, Immature Granulocyte # (Auto) 0.7H, Sodium Level 137, Potassium Level 4.1, Chloride Level 107, Carbon Dioxide Level 19L, Anion Gap 11, Blood Urea Nitrogen 4L, Creatinine 0.49L, Estimat Glomerular Filtration Rate 105, BUN/Creatinine Ratio 8, Glucose Level 302H, Calcium Level 7.0L, Corrected Calcium 8.5, Magnesium Level 1.5L, Total Bilirubin 0.5, Aspartate Amino Transf (AST/SGOT) 8, Alanine Aminotransferase (ALT/SGPT) 9, Alkaline Phosphatase 58, Total Protein 4.2L, Albumin 2.1L 06/08/21 12:26: Lab Scanned Report Transfusion Reaction Form Microbiology 06/04/21 MRSA Screen - Final, Complete MRSA not isolated Assessment/Plan Assessment/Plan Assessment/Plan Anemia secondary to blood loss from Ostomy site Aphasia Hx of multiple CVAs Left sided paralysis Hgb 6.7 - another unit of RBCs has been ordered, patient has been given 4 units total Clear liquid diet Ostomy bag has blood. Continue off blood thinners, she will have risk of CVA; may be able to start them again after bleeding is better controlled. Transfuse unit of RBCs Monitor Hgb SHERMAN CHAMBERS DO 06/08/212044: Subjective Time Seen by a Provider: 17:19 Subjective/Events-last exam Pt seen and examined, sleeping. Nurse states still dark maroon in ostomy bag, but is much less than previous times. Review of Systems unable to obtain Objective Exam General Appearance: No Apparent Distress, Chronically ill Respiratory: Lungs Clear, Normal Breath Sounds, No Accessory Muscle Use, No Respiratory Distress Cardiovascular: Regular Rate, Rhythm, No Murmur Gastrointestinal: soft, other (maroon blood noted in her ostomy bag mixed with stool; stoma appears pink and slightly edematous) Extremity: Other (SCD's in blace bilaterally) Assessment/Plan Assessment/Plan Assessment/Plan Anemia secondary to blood loss from Ostomy site Aphasia Hx of multiple CVAs Left sided paralysis Hgb 6.7 - another unit of RBCs has been ordered, patient has been given 4 units total Clear liquid diet Ostomy bag has blood. Continue off blood thinners, she will have risk of CVA; may be able to start them again after bleeding is better controlled. Transfuse unit of RBCs Monitor Hgb Supervisory-Addendum Brief Verification & Attestation Participated in pt care: history, MDM, physical Personally performed: exam, history, MDM, supervision of care Care discussed with: Medical Student Procedures: n/a Verification and Attestation of Medical Student E/M Service A medical student performed and documented this service. I then reviewed and verified all information documented by the medical student and made modifica tions to such information, when appropriate. I personally performed a physical exam, medical decision making and then discussed any differences between the notes and made revisions as necessary to create one note. Sherman Chambers , 06/08/21 , 20:44 MACARENA CANTU Jun 08, 2021 13:56 SHERMAN CHAMBERS DO Jun 08, 2021 20:45
[2021-06-08] MEDS: IRON SUCROSE 200 MG/10 ML (VENOFER) VIAL IV SCH (14:04)
[2021-06-08] MEDS: inSUlin ASPART (NovoLOG) 1 UNIT/0.01 ML (CHARGE PER UNIT) SC SCH ×2 (16:50→20:42)
--- NOTE | 2021-06-08 17:07 | Progress Note ---
Standard Progress Note Progress Notes/Assess & Plan Date Seen by a Provider: Jun 08, 2021 Time Seen by a Provider: 17:07 Progress/Assessment & Plan The patient's nurse tells me the family is considering placing the patient on hospice when she goes back to the [facility] facility. As such, cardiology will sign off. Please call if you have other questions. MASON NARAYANAN JR, MD Jun 08, 2021 17:07
[2021-06-08] MEDS: SENNA W/DOCUSATE (SENOKOT S) TABLET PO SCH (20:42)
[2021-06-08] MEDS: ASCORBIC ACID (VIT C) 500 MG TABLET PO SCH (20:42)
[2021-06-09 00:09] VITALS: BP 132/69
[2021-06-09 03:55] VITALS: BP 131/68
[2021-06-09] MEDS: DEXTROSE IV SCH ×4 (06:10→16:15)
[2021-06-09] MEDS: POTASSIUM CHLORIDE IV SCH ×4 (06:10→16:15)
[2021-06-09] MEDS: inSUlin ASPART (NovoLOG) 1 UNIT/0.01 ML (CHARGE PER UNIT) SC SCH ×4 (06:43→20:44)
[2021-06-09 06:52] LABS: BASOPHILS % (AUTO) 0 % (0-10); EOSINOPHILS # (AUTO) 0.3 10^3/uL (0.0-0.3); EOSINOPHILS % (AUTO) 3 % (0-10); HEMATOCRIT 24 % (35-52); HEMOGLOBIN 7.9 g/dL (11.5-16.0); LYMPHOCYTES # (AUTO) 1.9 10^3/uL (1.0-4.0); LYMPHOCYTES % (AUTO) 19 % (12-44); MEAN CORPUSCULAR HEMOGLOBIN 30 pg (25-34); MEAN CORPUSCULAR HGB CONC 33 g/dL (32-36); MEAN CORPUSCULAR VOLUME 92 fL (80-99); MEAN PLATELET VOLUME 10.7 fL (9.0-12.2); MONOCYTES # (AUTO) 0.6 10^3/uL (0.0-1.0); MONOCYTES % (AUTO) 6 % (0-12); NEUTROPHILS # (AUTO) 6.5 10^3/uL (1.8-7.8); NEUTROPHILS % (AUTO) 66 % (42-75); PLATELET COUNT 291 10^3/uL (130-400); WHITE BLOOD COUNT 9.8 10^3/uL (4.3-11.0)
[2021-06-09 07:01] LABS: ALBUMIN 2.3 GM/DL (3.2-4.5); CHLORIDE 110 MMOL/L (98-107); POTASSIUM 3.9 MMOL/L (3.6-5.0); SODIUM 141 MMOL/L (135-145)
[2021-06-09 07:02] LABS: CALCIUM 7.7 MG/DL (8.5-10.1)
[2021-06-09 07:03] LABS: GLUCOSE 113 MG/DL (70-105); TOTAL PROTEIN 4.5 GM/DL (6.4-8.2)
[2021-06-09 07:04] LABS: CARBON DIOXIDE 22 MMOL/L (21-32)
[2021-06-09 07:05] LABS: BILIRUBIN,TOTAL 0.3 MG/DL (0.1-1.0)
[2021-06-09 07:07] LABS: ALKALINE PHOSPHATASE 59 U/L (40-136); CREATININE SERUM 0.42 MG/DL (0.60-1.30); GFR ESTIMATED 108
[2021-06-09 07:08] LABS: BUN/CREATININE RATIO 5
[2021-06-09 07:09] LABS: MAGNESIUM 1.6 MG/DL (1.6-2.4)
[2021-06-09 07:10] LABS: ALANINE AMINOTRANSFERASE 9 U/L (0-55)
[2021-06-09] MEDS ORDERED: ACETAMINOPHEN 325 MG TABLET PO PRN (07:45)
[2021-06-09] MEDS: PANTOPRAZOLE 40 MG (PROTONIX) VIAL IV SCH (08:16)
--- NOTE | 2021-06-09 08:16 | Progress Note - Surgery ---
MACARENA CANTU 06/09/21 0816: Subjective Date Seen by a Provider: Jun 09, 2021 Time Seen by a Provider: 08:11 Subjective/Events-last exam Patient awake this AM. Patient was looking at me while I was speaking and following me with her eyes. Patient's ostomy bag shows a small amount of maroon blood intermixed with some bile/stool. Dr. Patel is planning on having a discussion with family today about hospice care. Unable to obtain ROS due to patients current clinical status Review of Systems Unable to obtain ROS Objective Exam Vital Signs Date Time Temp Pulse Resp B/P (MAP) Pulse Ox O2 Delivery O2 Flow Rate FiO2 06/09/21 03:55 36.4 94 18 131/68 (89) 98 Room Air 06/09/21 00:09 36.6 93 20 132/69 (90) 98 Room Air 06/08/21 20:45 100 Room Air 06/08/21 19:43 36.8 91 19 125/73 (90) 97 Room Air 06/08/21 16:01 36.7 90 18 122/77 (92) 98 Room Air 06/08/21 11:47 36.6 102 18 117/74 (88) 95 Room Air 06/08/21 09:00 100 Room Air I & O 06/09/21 06:59 Intake Total 200 ml Output Total 2750 ml Balance -2550 ml Capillary Refill : Greater Than 3 Seconds General Appearance: No Apparent Distress, WD/WN, Chronically ill, Thin Respiratory: Lungs Clear, Normal Breath Sounds, No Accessory Muscle Use, No Respiratory Distress Cardiovascular: Regular Rate, Rhythm, No Murmur, Normal Peripheral Pulses Gastrointestinal: soft, other (maroon blood noted in her ostomy bag mixed with stool; stoma appears patent) Extremity: No Pedal Edema, Other (SCD's in blace bilaterally) Neurologic/Psychiatric: Aphasia, Depressed Affect Skin: Normal Color, Warm/Dry Results Lab Laboratory Tests 06/08/21 12:26: Lab Scanned Report Transfusion Reaction Form 06/08/21 16:45: Glucometer 277H 06/08/21 20:38: Glucometer 222H 06/09/21 06:12: Glucometer 115H, White Blood Count 9.8, Red Blood Count 2.61L, Hemoglobin 7.9L, Hematocrit 24L, Mean Corpuscular Volume 92, Mean Corpuscular Hemoglobin 30, Mean Corpuscular Hemoglobin Concent 33, Red Cell Distribution Width 17.1H, Platelet Count 291, Mean Platelet Volume 10.7, Immature Granulocyte % (Auto) 6, Neutrophils (%) (Auto) 66, Lymphocytes (%) (Auto) 19, Monocytes (%) (Auto) 6, Eosinophils (%) (Auto) 3, Basophils (%) (Auto) 0, Neutrophils # (Auto) 6.5, Lymphocytes # (Auto) 1.9, Monocytes # (Auto) 0.6, Eosinophils # (Auto) 0.3, Basophils # (Auto) 0.0, Immature Granulocyte # (Auto) 0.5H, Sodium Level 141, Potassium Level 3.9, Chloride Level 110H, Carbon Dioxide Level 22, Anion Gap 9, Blood Urea Nitrogen < 2L, Creatinine 0.42L, Estimat Glomerular Filtration Rate 108, BUN/Creatinine Ratio 5, Glucose Level 113H, Calcium Level 7.7L, Corrected Calcium 9.1, Magnesium Level 1.6, Total Bilirubin 0.3, Aspartate Amino Transf (AST/SGOT) 10, Alanine Aminotransferase (ALT/SGPT) 9, Alkaline Phosphatase 59, Total Protein 4.5L, Albumin 2.3L Microbiology 06/04/21 MRSA Screen - Final, Complete MRSA not isolated Assessment/Plan Assessment/Plan Assessment/Plan Anemia secondary to blood loss from Ostomy site Aphasia Hx of multiple CVAs Left sided paralysis Hgb 7.9 - Continue to monitor , patient has been given 4 units RBC total Clear liquid diet Ostomy bag has maroon blood mixed with stool. Continue off blood thinners, she will have risk of CVA; may be able to start them again after bleeding is better controlled. Monitor Hgb SHERMAN CHAMBERS DO 06/09/21 1129: Subjective Time Seen by a Provider: 12:16 Subjective/Events-last exam Pt seen and examined, no new changes. Objective Exam General Appearance: No Apparent Distress, Chronically ill, Thin Respiratory: Lungs Clear, Normal Breath Sounds, No Accessory Muscle Use, No Respiratory Distress Cardiovascular: Regular Rate, Rhythm, No Murmur Gastrointestinal: soft, other (No more maroon blood noted in her ostomy bag, just brown stool; stoma pink and viable with mild edema) Neurologic/Psychiatric: Aphasia, Depressed Affect Assessment/Plan Assessment/Plan Assessment/Plan Anemia secondary to blood loss from Ostomy site Aphasia Hx of multiple CVAs Left sided paralysis Hgb 7.9 - Continue to monitor , patient has been given 4 units RBC total Clear liquid diet Ostomy bag has maroon blood mixed with stool. Continue off blood thinners, she will have risk of CVA; may be able to start them again after bleeding is better controlled. Monitor Hgb Supervisory-Addendum Brief Verification & Attestation Participated in pt care: history, MDM, physical Personally performed: exam, history, MDM, supervision of care Care discussed with: Medical Student Procedures: n/a Verification and Attestation of Medical Student E/M Service A medical student performed and documented this service. I then reviewed and verified all information documented by the medical student and made modifications to such information, when appropriate. I personally performed a physical exam, medical decision making and then discussed any differences between the notes and made revisions as necessary to create one note. Sherman Chambers , 06/09/21 , 11:29 MACARENA CANTU Jun 09, 2021 08:16 SHERMAN CHAMBERS DO Jun 09, 2021 11:29
[2021-06-09] MEDS: SENNA W/DOCUSATE (SENOKOT S) TABLET PO SCH ×2 (08:17→20:44)
[2021-06-09] MEDS: VITAMIN D3 25 MCG (1,000 UNITS) TABLET PO SCH (08:17)
[2021-06-09] MEDS: ASCORBIC ACID (VIT C) 500 MG TABLET PO SCH ×2 (08:17→20:44)
[2021-06-09] MEDS: lisINopril 10 MG (PRINIVIL) TABLET PO SCH (08:17)
[2021-06-09 08:53] VITALS: BP 127/74
[2021-06-09] MEDS ORDERED: NON-FORMULARY MEDICATION 1 EA EA (Dapagliflozin Propanediol (Farxiga) 10 MG) PO SCH (09:00)
--- NOTE | 2021-06-09 11:24 | Progress Note - Hospitalist ---
ENOCH AVILEZ 06/09/21 1124: Subjective HPI/CC On Admission Date Seen by Provider: Jun 09, 2021 Time Seen by Provider: 09:00 Chief complaint: Profuse bleeding from ostomy site History of present illness: This is a 65-year-old white female who was transferred from [facility] due to profuse bleeding from the ostomy site. Apparently Dr. Chambers placed the colostomy without complication from a rectal perforation and she had been doing well until profound bleeding from the ostomy site requiring ER visit and is now on her third unit of blood and has received FFP and platelets. She is on Plavix and aspirin so I did consult cardiology. Dr. Chambers will evaluate the area and follow-up on the bleeding scan and nuclear medicine. Patient is tired and not interested in conversing with me. Subjective/Events-last exam PT was laying in bed this morning and was not in any distress. She continues to be unable to answer any of my questions. Review of Systems unable to obtain a review of systems Objective Exam Vital Signs Vital Signs Date Time Temp Pulse Resp B/P (MAP) Pulse Ox O2 Delivery O2 Flow Rate FiO2 06/09/21 12:08 36.5 97 17 101/66 (78) 99 Room Air Capillary Refill : Greater Than 3 Seconds General Appearance: No Apparent Distress, Chronically ill HEENT: Moist Mucous Membranes Neck: Normal Inspection Respiratory: Chest Non Tender, Lungs Clear, Normal Breath Sounds, No Accessory Muscle Use, No Respiratory Distress Cardiovascular: Regular Rate, Rhythm, No Edema, No Gallop, No JVD, No Murmur, Normal Peripheral Pulses Gastrointestinal: Normal Bowel Sounds, No Organomegaly, No Pulsatile Mass, Non Tender, Soft, Other (ostomy bag continues to be in place) Extremity: Non Tender, No Calf Tenderness, No Pedal Edema Neurologic/Psychiatric: Other (mental status unchanged, continues with aphasia ) Skin: Normal Color, Warm/Dry Results/Procedures Lab Laboratory Tests 06/09/21 06:12 Patient resulted labs reviewed. Assessment/Plan Assessment and Plan Assess & Plan/Chief Complaint Assessment: Anemia Ostomy site bleeding likely from subcutaneous source and not GI Hemorrhagic shock resolved Debility resides in longterm Aphasia HTN Hx of CVA Plan: Debility resides in longterm Aphasia Due to the patient's declining status hospice care is suggested. PT's daughter was contacted on the phone today, and was informed about her mother's status. PT will likely be DC today or tomorrow on hospice care. Anemia Continue to monitor Hbg level. Ostomy site bleeding likely from subcutaneous source and not GI Hemorrhagic shock resolved Continue IVF. Monitor ostomy site, and contents within ostomy bag. HTN Hx of CVA No acute management needed at this time. KEELY CORDERO DO 06/10/21 0610: Subjective Subjective/Events-last exam Pt has no changes Hemoglobin was 7.9 Spoke with daughter in depth on the phone and she is willing to sign pt up for hospice after given information by dialysis social worker Objective Exam General Appearance: No Apparent Distress, WD/WN, Chronically ill Respiratory: Lungs Clear Cardiovascular: Regular Rate, Rhythm Neurologic/Psychiatric: Alert, Disoriented Assessment/Plan Assessment and Plan Assess & Plan/Chief Complaint Hospice at discharge tomorrow Supervisory-Addendum Brief Verification & Attestation Participated in pt care: history, MDM, physical Personally performed: exam, history, MDM, supervision of care Care discussed with: Medical Student Procedures: n/a Results interpretation: Verified all documentation Verification and Attestation of Medical Student E/M Service A medical student performed and documented this service in my presence. I reviewed and verified all information documented by the medical student and made modifications to such information, when appropriate. I personally performed the physical exam and medical decision making. Keely Cordero, Jun 10, 2021,06:09 ENOCH AVILEZ Jun 09, 2021 11:24 KEELY CORDERO DO Jun 10, 2021 06:10
[2021-06-09 12:08] VITALS: BP 101/66
--- NOTE | 2021-06-09 13:45 | Occupational Ther Daily Note ---
OT Current Status-Daily Note Subjective Pt supine in bed upon arrival with family member in room. Pt and family member agreed to therapy. Mental Status/Objective Patient Orientation: Eyes Open, Mumbles Attachments: IV ADL-Treatment Therapy Code Descriptions/Definitions Functional [place] Measure: 0=Not Assessed/NA 4=Minimal Assistance 1=Total Assistance 5=Supervision or Setup 2=Maximal Assistance 6=Modified [place] 3=Moderate Assistance 7=Complete IndependenceSCALE: Activities may be completed with or without assistive devices. 1-Fvkvsdalkc-vzoowck completes the activity by him/herself with no assistance from a helper. 5-Set-up or Clean-up Assistance-helper sets up or cleans up; patient completes activity. [place] assists only prior to or following the activity. 4-Supervision or Touching Assistance-helper provides verbal cues and/or touching/steadying and/or contact guard assistance as patient completes activity. Assistance may be provided throughout the activity or intermittently. 3-Partial/Moderate Assistance-helper does LESS THAN HALF the effort. [place] lifts, holds or supports trunk or limbs, but provides less than half the effort. 2-Substantial/Maximal Assistance-helper does MORE THAN HALF the effort. [place] lifts or holds trunk or limbs and provides more than half the effort. 5-Yqzuuagwd-ixzfru does ALL the effort. Patient does none of the effort to complete the activity. Or, the assistance of 2 or more helpers is required for the patient to complete the activity. If activity was not attempted, code reason: 7-Patient Refused. 9-Not Applicable-not attempted and the patient did not perform the activity before the current illness, exacerbation or injury. 10-Not Attempted due to Environmental Limitations-(lack of equipment, weather restraints, etc.). 88-Not Attempted due to Medical Conditions or Safety Concerns. Other Treatment BENÍTEZ completed PROM on UE to maintain joint integrity and to decrease pain by completing shoulder flexion/abduction, elbow flexion, wrist flexion/extension, and digit flexion/extension. When asked to perform movement, pt was unable to complete with AAROM. After session, family member and protective services social worker in room, with call light in reach and all needs met. OT Receptionist Clerk Goals Shelter Goals Time Frame: Jun 19, 2021 Eating (QC): 2 Oral Hygiene (QC): 2 Additional Goals: 1-Demonstrate ADL Tasks, 2-Verbalize Understanding, 3- ImproveStrength/[place] 1=Demonstrate adherence to instructed precautions during ADL tasks. 2=Patient will verbalize/demonstrate understanding of assistive devices/modifications for ADL. 3=Patient will improve strength/tolerance for activity to enable patient to perform ADL's. OT Education/Plan Problem List/Assessment Assessment: Decreased UE Strength, Impaired Cognition, Impaired Coordination, Impaired I ADL's, Impaired Self-Care Skills Discharge Recommendations Plan/Recommendations: Continue POC Treatment Plan/Plan of Care Patient would benefit from OT for education, treatment and training to promote independence in ADL's, mobility, safety and/or upper extremity function for ADL's. Plan of Care: ADL Retraining, Functional Mobility, UE Funct Exercise/Act Treatment Duration: Jun 19, 2021 Frequency: 3 times per week (3-5 times per week) Estimated Hrs Per Day: .25 hour per day Rehab Potential: Poor Time/GCodes Start Time: 11:46 Stop Time: 12:01 Total Time Billed (hr/min): 15 Billed Treatment Time 1 visit- 1, EX (15 min) ABRAHAM LAM Jun 09, 2021 13:45
[2021-06-09 16:00] VITALS: BP 116/62
[2021-06-09 19:48] VITALS: BP 125/61
[2021-06-10 00:30] VITALS: BP 126/64
[2021-06-10] MEDS: POTASSIUM CHLORIDE IV SCH ×6 (02:30→23:16)
[2021-06-10] MEDS: DEXTROSE IV SCH ×6 (02:30→23:16)
[2021-06-10] MEDS: inSUlin ASPART (NovoLOG) 1 UNIT/0.01 ML (CHARGE PER UNIT) SC SCH ×4 (06:54→20:30)
--- NOTE | 2021-06-10 07:46 | Progress Note - Surgery ---
MACARENA CANTU 06/10/21 0745: Subjective Date Seen by a Provider: Jun 10, 2021 Time Seen by a Provider: 07:39 Subjective/Events-last exam Patient was resting upon me entering the room. She is being discharged to hospice today per Dr. Patel's note. Patient's ostomy bag filled with stool, doesn't appear to be much, if any blood. Unable to obtain ROS due to patient's current clinical status. Review of Systems Unable to obtain ROS Objective Exam Vital Signs Date Time Temp Pulse Resp B/P (MAP) Pulse Ox O2 Delivery O2 Flow Rate FiO2 06/10/21 00:30 36.6 97 20 126/64 (84) 97 Room Air 06/09/21 21:00 Room Air 06/09/21 19:48 35.7 101 18 125/61 (82) 98 Room Air 06/09/21 16:00 36.2 98 18 116/62 (80) 98 Room Air 06/09/21 12:08 36.5 97 17 101/66 (78) 99 Room Air 06/09/21 09:00 100 Room Air 06/09/21 08:53 36.6 88 18 127/74 (91) 98 Room Air I & O 06/10/21 07:00 Intake Total 1570 ml Output Total 4010 ml Balance -2440 ml Capillary Refill : Greater Than 3 Seconds General Appearance: No Apparent Distress, WD/WN, Chronically ill Respiratory: Lungs Clear, No Accessory Muscle Use, No Respiratory Distress Cardiovascular: Regular Rate, Rhythm, Normal Peripheral Pulses Gastrointestinal: soft, other (No more maroon blood noted in her ostomy bag, just brown stool; stoma pink and patent) Extremity: Non Tender, No Calf Tenderness, No Pedal Edema Neurologic/Psychiatric: Alert, Disoriented Skin: Normal Color, Warm/Dry Results Lab Laboratory Tests 06/09/21 10:54: Glucometer 115H 06/09/21 16:17: Glucometer 173H 06/09/21 20:02: Glucometer 233H 06/10/21 06:44: Glucometer 140H Microbiology 06/04/21 MRSA Screen - Final, Complete MRSA not isolated Assessment/Plan Assessment/Plan Assessment/Plan Anemia secondary to blood loss from Ostomy site - appears to be resolved Aphasia Hx of multiple CVAs Left sided paralysis Hgb 7.9 on 4/6- Continue to monitor , patient has been given 4 units RBC total Clear liquid diet Ostomy bag filled with stool, doesn't appear to be much, if any, blood. Plan is for patient to be discharged to hospice today. SHERMAN CHAMBERS DO 06/10/21 1023: Subjective Time Seen by a Provider: 10:18 Subjective/Events-last exam Pt seen and examined, lying in bed. Apparently the plan is back to [facility] on hospice. Review of Systems unable to obtain Objective Exam General Appearance: No Apparent Distress, Chronically ill Respiratory: Lungs Clear, No Accessory Muscle Use, No Respiratory Distress Cardiovascular: Regular Rate, Rhythm, Normal Peripheral Pulses Gastrointestinal: other (No more maroon blood noted in her ostomy bag, just brown stool; stoma pink and patent) Assessment/Plan Assessment/Plan Assessment/Plan Anemia secondary to blood loss from Ostomy site - appears to be resolved Aphasia Hx of multiple CVAs Left sided paralysis Hgb 7.9 on 06/10- Continue to monitor , patient has been given 4 units RBC total Clear liquid diet Ostomy bag filled with stool, doesn't appear to be much, if any, blood. Plan is for patient to be discharged to hospice today. Supervisory-Addendum Brief Verification & Attestation Participated in pt care: history, MDM, physical Personally performed: exam, history, MDM, supervision of care Care discussed with: Medical Student Procedures: n/a Verification and Attestation of Medical Student E/M Service A medical student performed and documented this service. I then reviewed and verified all information documented by the medical student and made modifications to such information, when appropriate. I personally performed a physical exam, medical decision making and then discussed any differences between the notes and made revisions as necessary to create one note. Sherman Chambers , 06/10/21 , 10:23 MACARENA CANTU Jun 10, 2021 07:45 SHERMAN CHAMBERS DO Jun 10, 2021 10:23
--- NOTE | 2021-06-10 08:12 | Speech Therapy Progress Note ---
Therapy Progress Note Speech Pathology to discharge patient on this date as the patient is to return to her facility with hospice services. Upon repeated attempts to completed the clinical bedside evaluation, the patient provides limited participation and appropriateness. EMELINA JOINER Jun 10, 2021 08:12
[2021-06-10 08:25] VITALS: BP 94/59
[2021-06-10] MEDS: PANTOPRAZOLE 40 MG (PROTONIX) VIAL IV SCH (08:51)
[2021-06-10] MEDS: SENNA W/DOCUSATE (SENOKOT S) TABLET PO SCH ×2 (08:51→20:29)
[2021-06-10] MEDS: ASCORBIC ACID (VIT C) 500 MG TABLET PO SCH ×2 (08:51→20:29)
[2021-06-10] MEDS: VITAMIN D3 25 MCG (1,000 UNITS) TABLET PO SCH (08:51)
[2021-06-10] MEDS: IRON SUCROSE 200 MG/10 ML (VENOFER) VIAL IV SCH (08:51)
[2021-06-10] MEDS: lisINopril 10 MG (PRINIVIL) TABLET PO SCH (09:07)
--- NOTE | 2021-06-10 11:13 | Occupational Ther Daily Note ---
OT Current Status-Daily Note Subjective Pt began tx supine in bed with nursing and family member in room. Family member agreed to tx. Mental Status/Objective Patient Orientation: Eyes Open Attachments: IV ADL-Treatment Therapy Code Descriptions/Definitions Functional [place] Measure: 0=Not Assessed/NA 4=Minimal Assistance 1=Total Assistance 5=Supervision or Setup 2=Maximal Assistance 6=Modified [place] 3=Moderate Assistance 7=Complete IndependenceSCALE: Activities may be completed with or without assistive devices. 4-Bfufdkrgpa-oetswal completes the activity by him/herself with no assistance from a helper. 5-Set-up or Clean-up Assistance-helper sets up or cleans up; patient completes activity. [place] assists only prior to or following the activity. 4-Supervision or Touching Assistance-helper provides verbal cues and/or touching/steadying and/or contact guard assistance as patient completes activity. Assistance may be provided throughout the activity or intermittently. 3-Partial/Moderate Assistance-helper does LESS THAN HALF the effort. [place] lifts, holds or supports trunk or limbs, but provides less than half the effort. 2-Substantial/Maximal Assistance-helper does MORE THAN HALF the effort. [place] lifts or holds trunk or limbs and provides more than half the effort. 4-Dvltidiet-cwleio does ALL the effort. Patient does none of the effort to complete the activity. Or, the assistance of 2 or more helpers is required for the patient to complete the activity. If activity was not attempted, code reason: 7-Patient Refused. 9-Not Applicable-not attempted and the patient did not perform the activity before the current illness, exacerbation or injury. 10-Not Attempted due to Environmental Limitations-(lack of equipment, weather restraints, etc.). 88-Not Attempted due to Medical Conditions or Safety Concerns. Other Treatment BENÍTEZ provided PROM to shoulder joint, wrist and digits to maintain joint int egrity and to decrease pain in BUE. When asked to make fist and to open fist up, pt was unable to complete AAROM. Pt did not make eye contact with BENÍTEZ and began to close eyes. Pt did not acknowledge BENÍTEZ throughout session. After session, call button in reach and all needs met. OT Refinery Operator Crude Unit Goals Refinery Operator Crude Unit Goals Time Frame: Jun 19, 2021 Eating (QC): 2 Oral Hygiene (QC): 2 Additional Goals: 1-Demonstrate ADL Tasks, 2-Verbalize Understanding, 3- ImproveStrength/[place] 1=Demonstrate adherence to instructed precautions during ADL tasks. 2=Patient will verbalize/demonstrate understanding of assistive devices/modifications for ADL. 3=Patient will improve strength/tolerance for activity to enable patient to perform ADL's. OT Education/Plan Problem List/Assessment Assessment: Decreased UE Strength, Impaired Cognition, Impaired Coordination, Impaired I ADL's, Impaired Self-Care Skills Discharge Recommendations Plan/Recommendations: Continue POC Treatment Plan/Plan of Care Patient would benefit from OT for education, treatment and training to promote independence in ADL's, mobility, safety and/or upper extremity function for ADL's. Plan of Care: ADL Retraining, Functional Mobility, UE Funct Exercise/Act Treatment Duration: Jun 19, 2021 Frequency: 3 times per week (3-5 times per week) Estimated Hrs Per Day: .25 hour per day Rehab Potential: Poor Time/GCodes Start Time: 10:52 Stop Time: 11:01 Total Time Billed (hr/min): 9 Billed Treatment Time 1 visit, 1 EX (9min) Mirtha Levine Jun 10, 2021 11:13
--- NOTE | 2021-06-10 12:57 | Progress Note - Hospitalist ---
ENOCH AVILEZ 06/10/21 1257: Subjective HPI/CC On Admission Date Seen by Provider: Jun 10, 2021 Time Seen by Provider: 09:30 Chief complaint: Profuse bleeding from ostomy site History of present illness: This is a 65-year-old white female who was transferred from [facility] due to profuse bleeding from the ostomy site. Apparently Dr. Chambers placed the colostomy without complication from a rectal perforation and she had been doing well until profound bleeding from the ostomy site requiring ER visit and is now on her thir d unit of blood and has received FFP and platelets. She is on Plavix and aspirin so I did consult cardiology. Dr. Chambers will evaluate the area and follow-up on the bleeding scan and nuclear medicine. Patient is tired and not interested in conversing with me. Subjective/Events-last exam PT's clinical status is unchanged compared to yesterday. She was laying in bed comfortably this morning and did not appear to be in any distress. Review of Systems unable to obtain a review of systems Objective Exam Vital Signs Vital Signs Date Time Temp Pulse Resp B/P (MAP) Pulse Ox O2 Delivery O2 Flow Rate FiO2 06/10/21 09:00 100 Room Air 06/10/21 08:25 36.7 97 18 94/59 (71) Capillary Refill : Greater Than 3 Seconds General Appearance: No Apparent Distress, Chronically ill HEENT: PERRL/EOMI, Moist Mucous Membranes Neck: Normal Inspection Respiratory: Chest Non Tender, Lungs Clear, Normal Breath Sounds, No Accessory Muscle Use, No Respiratory Distress Cardiovascular: Regular Rate, Rhythm, No Edema, No Gallop, No JVD, No Murmur, Normal Peripheral Pulses Gastrointestinal: Normal Bowel Sounds, No Organomegaly, No Pulsatile Mass, Non Tender, Soft Extremity: Normal Inspection, No Calf Tenderness, No Pedal Edema Neurologic/Psychiatric: Other (aphasia, unchanged compared to yesterday ) Skin: Normal Color, Warm/Dry Results/Procedures Lab Patient resulted labs reviewed. Assessment/Plan Assessment and Plan Assess & Plan/Chief Complaint Assessment: Anemia Ostomy site bleeding likely from subcutaneous source and not GI Hemorrhagic shock resolved Debility resides in residential Aphasia HTN Hx of CVA Plan: Debility resides in residential Aphasia Anemia She will be DC in the near term to hospice care. PT's daughter and partner are up to date with her clinical plan. Ostomy site bleeding likely from subcutaneous source and not GI Hemorrhagic shock resolved Continue IVF. Monitor ostomy site, and contents within ostomy bag. HTN Hx of CVA No acute management needed at this time. KEELY CORDERO DO 06/11/21 0532: Subjective Subjective/Events-last exam Pt having no new complaints Aphasia continues Can't go back to [facility] due to billing issues Needs hospice Review of Systems General: Fatigue, Malaise Objective Exam General Appearance: No Apparent Distress, WD/WN, Chronically ill Respiratory: Lungs Clear, Normal Breath Sounds Cardiovascular: Regular Rate, Rhythm Assessment/Plan Assessment and Plan Assess & Plan/Chief Complaint Hospice at discharge Supervisory-Addendum Brief Verification & Attestation Participated in pt care: history, MDM, physical Personally performed: exam, history, MDM, supervision of care Care discussed with: Medical Student Procedures: n/a Results interpretation: Verified all documentation Verification and Attestation of Medical Student E/M Service A medical student performed and documented this service in my presence. I reviewed and verified all information documented by the medical student and made modifications to such information, when appropriate. I personally performed the physical exam and medical decision making. Keely Cordero Jun 11, 2021,05:31 ENOCH AVILEZ Jun 10, 2021 12:57 KEELY CORDERO DO Jun 11, 2021 05:32
[2021-06-10 16:00] VITALS: BP 121/60
[2021-06-11 00:16] VITALS: BP 124/79
[2021-06-11] MEDS: inSUlin ASPART (NovoLOG) 1 UNIT/0.01 ML (CHARGE PER UNIT) SC SCH ×3 (06:10→15:54)
[2021-06-11 07:48] VITALS: BP 135/69
--- NOTE | 2021-06-11 07:55 | Progress Note - Surgery ---
MACARENA CANTU 06/11/21 0755: Subjective Date Seen by a Provider: Jun 11, 2021 Time Seen by a Provider: 07:52 Subjective/Events-last exam Patient resting in bed upon entering the room. Patient responded to verbal cues this morning. Patient was denied hospice at [facility] due to billing i ssues. Patient is now set up for home hospice. Once home hospice medical equipment is set up the plan is to discharge to home hospice. Unable to obtain ROS due to patient's current clinical status. Review of Systems Unable to obtain ROS Objective Exam Vital Signs Date Time Temp Pulse Resp B/P (MAP) Pulse Ox O2 Delivery O2 Flow Rate FiO2 06/11/21 07:48 36.7 98 16 135/69 (91) 97 Room Air 06/11/21 00:16 36.7 105 18 124/79 (94) 97 Room Air 06/10/21 21:02 98 Room Air 06/10/21 16:00 36.2 92 18 121/60 (80) 97 Room Air 06/10/21 09:00 100 Room Air 06/10/21 08:25 36.7 97 18 94/59 (71) 98 Room Air I & O 06/11/21 07:00 Intake Total 2330 ml Output Total 3850 ml Balance -1520 ml Capillary Refill : Greater Than 3 Seconds General Appearance: No Apparent Distress, WD/WN, Chronically ill Respiratory: Lungs Clear, Normal Breath Sounds Cardiovascular: Regular Rate, Rhythm, Normal Peripheral Pulses Gastrointestinal: other (No more maroon blood noted in her ostomy bag, just brown stool; stoma pink and patent) Extremity: No Calf Tenderness, No Pedal Edema Neurologic/Psychiatric: Other (aphasia, unchanged compared to yesterday ) Skin: Normal Color, Warm/Dry Results Lab Laboratory Tests 06/10/21 10:52: Glucometer 129H 06/10/21 15:40: Glucometer 147H 06/10/21 20:00: Glucometer 216H 06/11/21 05:35: Glucometer 199H Microbiology 06/04/21 MRSA Screen - Final, Complete MRSA not isolated Assessment/Plan Assessment/Plan Assessment/Plan Anemia secondary to blood loss from Ostomy site - appears to be resolved Aphasia Hx of multiple CVAs Left sided paralysis Hgb 7.9 on 06/09- Continue to monitor , patient has been given 4 units RBC total Ostomy bag filled with stool, doesn't appear to be much, if any, blood. Plan is for patient to be discharged to home hospice once equipment is set up. SHERMAN CHAMBERS DO 06/11/21 1036: Subjective Time Seen by a Provider: 10:11 Subjective/Events-last exam Pt seen, no changes. Going home on hospice Objective Exam General Appearance: No Apparent Distress, Chronically ill Respiratory: Lungs Clear, Normal Breath Sounds Cardiovascular: Regular Rate, Rhythm Gastrointestinal: soft, other (No more maroon blood noted in her ostomy bag, just brown stool; stoma pink and patent) Assessment/Plan Assessment/Plan Assessment/Plan Anemia secondary to blood loss from Ostomy site - appears to be resolved Aphasia Hx of multiple CVAs Left sided paralysis Hgb 7.9 on 06/09- Continue to monitor , patient has been given 4 units RBC total Ostomy bag filled with stool, doesn't appear to be much, if any, blood. Plan is for patient to be discharged to home hospice once equipment is set up. Supervisory-Addendum Brief Verification & Attestation Participated in pt care: history, MDM, physical Personally performed: exam, history, MDM, supervision of care Care discussed with: Medical Student Procedures: n/a Verification and Attestation of Medical Student E/M Service A medical student performed and documented this service. I then reviewed and verified all information documented by the medical student and made modifications to such information, when appropriate. I personally performed a physical exam, medical decision making and then discussed any differences amaw een the notes and made revisions as necessary to create one note. Sherman Chambers , 06/11/21 , 10:36 MACARENA CANTU Jun 11, 2021 07:55 SHERMAN CHAMBERS DO Jun 11, 2021 10:36
[2021-06-11] MEDS: ASCORBIC ACID (VIT C) 500 MG TABLET PO SCH (08:51)
[2021-06-11] MEDS: lisINopril 10 MG (PRINIVIL) TABLET PO SCH (08:51)
[2021-06-11] MEDS: PANTOPRAZOLE 40 MG (PROTONIX) VIAL IV SCH (08:51)
[2021-06-11] MEDS: VITAMIN D3 25 MCG (1,000 UNITS) TABLET PO SCH (08:51)
[2021-06-11] MEDS: SENNA W/DOCUSATE (SENOKOT S) TABLET PO SCH (08:51)
[2021-06-11] MEDS: POTASSIUM CHLORIDE IV SCH ×4 (10:22→20:36)
[2021-06-11] MEDS: DEXTROSE IV SCH ×4 (10:22→20:36)
--- NOTE | 2021-06-11 11:05 | Discharge Summary ---
Discharge Summary Hospital Course Was the Problem List Reviewed?: Yes Problems/Dx: (1) History of cerebrovascular accident with residual deficit (2) Primary hypertension (3) Mixed hyperlipidemia (4) Acute blood loss anemia Status: Acute (5) Type 2 diabetes mellitus with complication Hospital Course Date of Admission: Jun 04, 2021 at 00:15 Admission Diagnosis : Family Physician/Provider: Deven Resendiz MD Date of Discharge: 06/11/21 Discharge Diagnosis: Subcutaneous bleed of ostomy, aphasia, dementia, history of CVA, discharged home on hospice Hospital Course: The patient is a 65 YO female with a history of multiple CVAs, expressive aphasia, left sided paralysis, colostomy bag, HTN and DM, who was transferred to the ED in [place] from [facility] on 06/03/21 for bleeding from her colostomy bag. Due to this bleeding she developed hemorrhagic shock, and acute blood loss anemia. The patient was estimated to have lost about 1000 ml of bright red blood at the alf, and another 1000 ml lost in the ED. CT of the abdomen and pelvis on 06/03/21 showed, Per Radiology: Extensive dilatation of stool filled right colon tothe level of anterior abdominal wall ostomy. This could be due to impaction or obstruction at the ostomy site. Possibility small amount of pneumoperitoneum is not excluded which could joseph rhett bowel wall necrosis.There is gas within the urinary bladder which also contains a Draper catheter and urinalysis would be of use. GI bleeding scan on 06/04/21 was unremarkable. She was then admitted as an inpatient. General surgery was consulted. Surgery reported the bleeding was likely caused by her ASA and Plavix therapy (needed d/t her CVAs). When initially seen by surgery the ostomy site was cleaned and a large clot was removed from the site, there was no bleeding at that time. Anticoagulation was then held. Cardiology was consulted, who restarted her ASA and statin therapy on 06/07/21, and completely held her Plavix. PT was followed by surgery and medicine throughout her stay at the hospital. On 06/08/21 it was noted she did have blood in her ostomy bag, and her hemoglobin was 6.7 at that time, she was then given a unit of RBCs. Blood thinning therapy was stopped after this event. Over time her ostomy bag bleeding began to resolve and her hemoglobin stabilized. Last hemoglobin was 7.9. She was given a total of 4 units of RBC throughout her hospital stay. The patient will be discharged today on hospice. All medications were discontinued. The patient's family is aware of her clinical course. Appreciate Cardiology, General Surgery, Tele-ICU, Speech therapy, PT, and OT. ENOCH AVILEZ Labs and Pending Lab Test: Laboratory Tests 06/10/21 15:40: Glucometer 147H 06/10/21 20:00: Glucometer 216H 06/11/21 05:35: Glucometer 199H Microbiology 06/04/21 MRSA Screen - Final, Complete MRSA not isolated Home Meds Active Reported Senna-S Tablet (Sennosides/Docusate Sodium) 1 Each Tablet 2 Each PO BID Relistor (Methylnaltrexone) 12 Mg/0.6 Ml Vial 12 Mg SQ WEEK Ketoconazole 120 Ml Shampoo 1 Applic TP MO,WE,FR Tylenol Arthritis (Acetaminophen) 650 Mg Tablet.er 650 Mg PO Q8H PRN Lantus (Insulin Glargine,Hum.rec.anlog) 100 Unit/1 Ml Vial 35 Unit SQ HS Novolog (Insulin Aspart) 100 Unit/1 Ml Susp Unit SQ AC USES THE FOLLOWING SLIDING SCALE: 60-180=0 UNITS 181-200=4 UNITS 201-250=6 UNITS 251-300=8 UNITS 301-350=10 UNITS 351-400= 12 UNITS OVER 400 CONTACT PCP Lisinopril 10 Mg Tablet 10 Mg PO DAILY Atorvastatin Calcium 80 Mg Tablet 80 Mg PO DAILY Farxiga (Dapagliflozin Propanediol) 10 Mg Tablet 10 Mg PO DAILY Plavix (Clopidogrel Bisulfate) 75 Mg Tablet 75 Mg PO DAILY Vitamin C (Ascorbate Calcium) 500 Mg Tablet 500 Mg PO BID Aspirin 81 Mg Tab.chew 81 Mg PO DAILY Vitamin D3 (Cholecalciferol (Vitamin D3)) 25 Mcg Capsule 25 Mcg PO DAILY Assessment/Pt Instructions Discharge home on hospice Discharge Planning: <30 minutes discharge planning Discharge Instructions Discharge Diet: No Restrictions Discharge Physical Examination Vital Signs Vital Signs Date Time Temp Pulse Resp B/P (MAP) Pulse Ox O2 Delivery O2 Flow Rate FiO2 06/11/21 09:11 98 Room Air 06/11/21 07:48 36.7 98 16 135/69 (91) General Appearance: Chronically ill Allergies: Coded Allergies: Penicillins (Verified Allergy, Unknown, 05/13/21) codeine (Verified Allergy, Unknown, 05/13/21) erythromycin base (Verified Allergy, Unknown, 05/13/21) gluten (Verified Allergy, Unknown, 06/06/21) lidocaine (Verified Allergy, Unknown, 05/13/21) tetanus toxoid, adsorbed (Verified Allergy, Unknown, 05/13/21) Discharge Summary Date of Admission Jun 04, 2021 at 00:15 Date of Discharge Discharge Date: Jun 11, 2021 Admission Diagnosis Assessment: Hemorrhagic shock Profound bleeding from ostomy site appears to be from subcutaneous source not GI Acute blood loss anemia requiring transfusion of packed red blood cells and FFP and platelets Debility resides in a alf Hypertension Prior stroke Plan: Transfuse Supportive care IV fluid Dr. Chambers consult Cardiology consult Discharge Diagnosis Hospice at discharge (1) History of cerebrovascular accident with residual deficit Assessment & Plan: She is well over 1 month out from her stroke. As such, I santiago ve stopped clopidogrel completely. She is now back on aspirin and statin medication. I did have her undergo an echocardiogram and this did not any obvious abnormalities to explain a cardioembolic source for her previous stroke. (2) Primary hypertension Assessment & Plan: I restarted her lisinopril which she was taking at the long term facility and her blood pressures have been good. (3) Mixed hyperlipidemia Assessment & Plan: Her statin medication has been ordered. (4) Acute blood loss anemia Status: Acute Assessment & Plan: Most likely due to the hemorrhaging at the site of her previous colostomy. General surgery is following her in this regard. The bleeding seems to have resolved. She has received aspirin and there has been no recurrence of the bleeding. (5) Type 2 diabetes mellitus with complication Assessment & Plan: This is being managed by the hospitalist. TIM CORDERO DO Jun 11, 2021 11:05
--- NOTE | 2021-06-11 13:10 | Progress Note ---
ENOCH AVILEZ 06/11/21 1310: Progress Note The patient is a 65 YO female with a history of multiple CVAs, expressive aphasia, left sided paralysis, colostomy bag, HTN and DM, who was transferred to the ED in [place] from [facility] on 06/03/21 for bleeding from her colostomy bag. Due to this bleeding she developed hemorrhagic shock, and acute blood loss anemia. The patient was estimated to have lost about 1000 ml of bright red blood at the longterm, and another 1000 ml lost in the ED. CT of the abdomen and pelvis on 06/03/21 showed, Per Radiology: Extensive dilatation of stool filled right colon tothe level of anterior abdominal wall ostomy. This could be due to impaction or obstruction at the ostomy site. Possibility small amount of pneumoperitoneum is not excluded which could indicate bowel wall necrosis.There is gas within the urinary bladder which also contains a Draper catheter and urinalysis would be of use. GI bleeding scan on 06/04/21 was unremarkable. She was then admitted as an inpatient. General surgery was consulted. Surgery reported the bleeding was likely caused by her ASA and Plavix therapy (needed d/t her CVAs). When initially seen by surgery the ostomy site was cleaned and a large clot was removed from the site, there was no bleeding at that time. Anticoagulation was then held. Cardiology was consulted, who restarted her ASA and statin therapy on 06/07/21, and completely held her Plavix. PT was followed by surgery and medicine throughout her stay at the hospital. On 06/08/21 it was noted she did have blood in her ostomy bag, and her hemoglobin was 6.7 at that time, she was then given a unit of RBCs. Blood thinning therapy was stopped after this event. Over time her ostomy bag bleeding began to resolve and her hemoglobin stabilized. Last hemoglobin was 7.9. She was given a total of 4 units of RBC throughout her hospital stay. The patient will be discharged today on hospice. All medications were discontinued. The patient's family is aware of her clinical course. Appreciate Cardiology, General Surgery, Tele-ICU, Speech therapy, PT, and OT. KEELY CORDERO DO 06/12/21 0519: Supervisory-Addendum Brief Verification & Attestation Participated in pt care: history, MDM, physical Personally performed: exam, history, MDM, supervision of care Care discussed with: Medical Student Procedures: n/a Results interpretation: Verified all documentation Verification and Attestation of Medical Student E/M Service A medical student performed and documented this service in my presence. I reviewed and verified all information documented by the medical student and made modifications to such information, when appropriate. I personally performed the physical exam and medical decision making. Keely Cordero, Jun 12, 2021,05:19 ENOCH AVILEZ Jun 11, 2021 13:10 KEELY CORDERO DO Jun 12, 2021 05:19
--- NOTE | 2021-06-11 13:12 | Occ Therapy Progress Note ---
Therapy Progress Note Pt has not actively participated in skilled therapy due to decline in medical status, OT to discharge pt. Pt to discharge to daughter's home with hospice at this time. ABRAHAM LAM Jun 11, 2021 13:12
[2021-06-11 16:44] VITALS: BP 135/66
== END 2021-06-11 21:25 | disposition hospice, home (50) | DRG 813 ==
LOC: EDUNIT# 22:42 → ER 22:43 → ICU 06-04 00:15 → 4TH 06-05 13:11
PROVIDERS: ADMIT Surgery; ATTEND Surgery
DX: D68.32 Hemorrhagic disorder due to extrinsic circulating anticoagulants (principal); R57.8 Other shock; K94.01 Colostomy hemorrhage; D62 Acute posthemorrhagic anemia; I69.354 Hemiplegia and hemiparesis following cerebral infarction affecting left non-dominant side; E87.0 Hyperosmolality and hypernatremia; I69.320 Aphasia following cerebral infarction; E11.9 Type 2 diabetes mellitus without complications; L89.159 Pressure ulcer of sacral region, unspecified stage; Z79.02 Long term (current) use of antithrombotics/antiplatelets; Z79.82 Long term (current) use of aspirin; Z79.4 Long term (current) use of insulin; Z88.5 Allergy status to narcotic agent; Z88.0 Allergy status to penicillin; Z88.7 Allergy status to serum and vaccine; T45.525A Adverse effect of antithrombotic drugs, initial encounter; T39.015A Adverse effect of aspirin, initial encounter
CPT/HCPCS: 36415; 36569; 74176; 76937; 78278; 80053; 80061; 82607; 82947; 83540; 83735; 84100; 85014; 85018; 85025; 85027; 85610; 85730; 86850; 86900; 86901; 86920; 87081; 93005; 93041; 93306; 96361; 96365; 96366; 96367; 96368; 99291; 99292